=== PATIENT | male | born 1960 | race Caucasian/White ===

== ENCOUNTER 2016-11-19 11:32 | Emergency (ER) | payer OTHER ==
[~2016-11-19] VITALS: Ht 175.3 cm; Wt 101.5 kg
[~2016-11-19 11:32] MED LIST: FURO40TA4 PO; SPIR25TA PO
[2016-11-19 11:34] VITALS: Ht 175.3 cm; Wt 101.5 kg
[2016-11-19 12:20] LABS: ADD SCAN DIFF NO
[2016-11-19 12:23] LABS: ABNORMAL IP MESSAGE 1; HEMATOCRIT 39.7 % (42.0-52.0); HEMOGLOBIN 13.3 g/dl (14.0-18.0); MEAN CORPUSCULAR HEMOGLOBIN 33.6 pg (29.0-33.0); MEAN CORPUSCULAR HGB CONC 33.5 g/dl (32.0-37.0); MEAN CORPUSCULAR VOLUME 100.3 fl (82.0-101.0); MEAN PLATELET VOLUME 9.6 fl (7.4-10.4); PLATELET COUNT 75 10^3/UL (140-415); RED BLOOD COUNT 3.96 10^6/ul (4.70-6.10); RED CELL DISTRIBUTION WIDTH 14.3 % (11.5-14.5); WHITE BLOOD COUNT 3.3 10^3/ul (4.8-10.8)
[2016-11-19 12:39] LABS: ALBUMIN 2.6 g/dl (3.3-4.9); ALBUMIN/GLOBULIN RATIO 0.52; BILIRUBIN,INDIRECT 2.7 mg/dl (0-1.1); BILIRUBIN,TOTAL 2.7 mg/dl (0.2-1.3); CALCIUM 8.4 mg/dl (8.4-10.2); CREATININE 0.64 mg/dl (0.61-1.24); POTASSIUM 4.9 mmol/L (3.5-5.1); TOTAL PROTEIN 7.6 g/dl (6.1-8.1)
--- NOTE | 2016-11-19 13:28 | RADRPT ---
PROCEDURE: Ultrasound of the left lower extremity venous system. CLINICAL INDICATION: Left leg pain and swelling, deep venous thrombosis TECHNIQUE: Batista scale with and without compression, color doppler, spectral doppler of the venous system of the left lower extremity was performed. Venous augmentation maneuvers were utilized. COMPARISON: No prior studies are available for comparison. FINDINGS: Common femoral vein: Patent. Femoral vein: Patent. Popliteal vein: Patent. Calf veins: Patent. Calf edema is present. IMPRESSION: No evidence of a deep vein thrombosis within the left lower extremity. Subcutaneous edema of the calf. RPTAT: AADD .Corona Torres MD, MD Date Time Electronically viewed and signed by .Corona Torres MD, MD on 11/19/2016 13:28 .B/
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
[2016-11-19] MEDS ORDERED: CEPH-443 PO (14:00)
[2016-11-19 14:04] LABS: EOSINOPHILS # 0.1 10^3/ul (0.0-0.5); LYMPHOCYTES # 0.6 10^3/ul (0.8-2.9); MONOCYTE # 0.2 10^3/ul (0.3-0.9); NEUTROPHIL # 2.4 10^3/ul (1.6-7.5)
[2016-11-19 14:05] LABS: PLATELET ESTIMATE PLT APPEAR DECREASED
== END 2016-11-19 14:12 | disposition home or self-care (01) ==
LOC: FTE 11:32
DX: L03.116 Cellulitis of left lower limb (principal); K70.31 Alcoholic cirrhosis of liver with ascites; E88.09 Other disorders of plasma-protein metabolism, not elsewhere classified; R60.0 Localized edema; I87.8 Other specified disorders of veins
CPT/HCPCS: 36415; 80053; 85025; 93971; Z7502; 99283

== ENCOUNTER 2016-11-23 14:29 | Inpatient (IN) | payer OTHER ==
[~2016-11-23] VITALS: Ht 170.2 cm; Wt 105.0 kg
[~2016-11-23 14:29] MED LIST changes: +CEPH-443 PO
[2016-11-23] MEDS ORDERED: VANCOMYCIN 1.5 GM in SOD CHLORIDE 0.9% 250 ML IVPB ONE (17:00)
[2016-11-23] MEDS ORDERED: PIPER-TAZO 3.375 GM IV (PMX) 100 ML IVPB ONE (17:00)
--- NOTE | 2016-11-23 17:24 | RADRPT ---
PROCEDURE: XR Chest. CLINICAL INDICATION: Shortness of breath. TECHNIQUE: Single frontal view. COMPARISON: None. FINDINGS: There is a benign calcified granuloma at the left lung base laterally. Mild atelectasis is present at both lung bases. The lungs are otherwise clear. The heart size is normal. There is calcification in the aorta consistent with atherosclerosis. There is no pleural effusion. There is no pneumothorax. IMPRESSION: 1. Benign calcified granuloma at the left lung base laterally. 2. Mild atelectasis at the lung bases. 3. Atherosclerosis. RPTAT: QQ .Stuart Kim MD, Date Time Electronically viewed and signed by .Stuart Kim MD, on 11/23/2016 17:24 .R/
[2016-11-23 17:46] LABS: ADD SCAN DIFF NO
[2016-11-23 17:49] LABS: ABNORMAL IP MESSAGE 1; HEMATOCRIT 36.1 % (42.0-52.0); HEMOGLOBIN 12.3 g/dl (14.0-18.0); MEAN CORPUSCULAR HEMOGLOBIN 34.4 pg (29.0-33.0); MEAN CORPUSCULAR HGB CONC 34.1 g/dl (32.0-37.0); MEAN CORPUSCULAR VOLUME 100.8 fl (82.0-101.0); MEAN PLATELET VOLUME 10.3 fl (7.4-10.4); PLATELET COUNT 75 10^3/UL (140-415); RED BLOOD COUNT 3.58 10^6/ul (4.70-6.10); RED CELL DISTRIBUTION WIDTH 14.7 % (11.5-14.5); WHITE BLOOD COUNT 3.9 10^3/ul (4.8-10.8)
[2016-11-23] MEDS ORDERED: PANT40TA4 PO (17:50)
[2016-11-23] MEDS ORDERED: FURO20TA3 PO (17:50)
[2016-11-23 18:06] LABS: INR 1.85; PROTIME 21.5 Sec (12.2-14.2); PT RATIO 1.7
[2016-11-23 18:07] LABS: PARTIAL THROMBOPLASTIN TIME 41.8 Sec (25.0-35.0)
[2016-11-23 18:09] LABS: ALBUMIN 2.2 g/dl (3.3-4.9); ALBUMIN/GLOBULIN RATIO 0.47; CALCIUM 7.8 mg/dl (8.4-10.2); CREATININE 0.63 mg/dl (0.61-1.24); TOTAL PROTEIN 6.8 g/dl (6.1-8.1)
--- NOTE | 2016-11-23 18:10 | RADRPT ---
PROCEDURE: XR Left Foot. CLINICAL INDICATION: infection, r/o osteo TECHNIQUE: AP, lateral and oblique views of the left foot was obtained. The images were reviewed on a PACS workstation. COMPARISON: None. FINDINGS: The bones of the foot appear intact, with no evidence of fracture, dislocation, or subluxation. The joint spaces are preserved. The bone mineralization is normal. There is mild diffuse soft tissue swelling. No subcutaneous gas is identified. An inferior calcaneal spur is present. IMPRESSION: 1. Mild diffuse soft tissue swelling. 2. An inferior calcaneal spur is present. 3. Otherwise, no significant abnormalities are identified. RPTAT:AAJJ Physician Ana Date Time Electronically viewed and signed by Physician Ana on 11/23/2016 18:09 /
[2016-11-23 18:43] LABS: LYMPHOCYTES # 0.5 10^3/ul (0.8-2.9); MONOCYTE # 0.4 10^3/ul (0.3-0.9)
[2016-11-23 18:44] LABS: PLATELET ESTIMATE PLT APPEAR DECREASED
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
[2016-11-23] MEDS ORDERED: ACETAMINOPHEN 325 MG TAB PO PRN ×2 (19:30→23:00)
[2016-11-23] MEDS ORDERED: ONDANSETRON 4 MG INJ IV PRN ×2 (19:30→23:00)
[2016-11-23 20:20] VITALS: BP 119/63; RESP 18
[2016-11-23 20:22] VITALS: TEMP 97.7
[2016-11-23 20:55] VITALS: BP 119/63; PULSE 93; RESP 18; Ht 170.2 cm; Wt 105.0 kg
[2016-11-23] MEDS ORDERED: VANCOMYCIN IV PER PHARMACY XX SCH (23:00)
[2016-11-23] MEDS ORDERED: NACL 0.9% 3 ML SYG IV SCH (23:00)
[2016-11-23] MEDS ORDERED: morphine 2 MG INJ IV PRN (23:00)
[2016-11-24] MEDS: FUROSEMIDE 40 MG INJ IV SCH ×3 (00:12→17:02)
[2016-11-24] MEDS: FAMOTIDINE 20 MG TAB PO SCH ×3 (00:12→20:46)
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
[2016-11-24] MEDS: VANCOMYCIN 1.5 GM in SOD CHLORIDE 0.9% 250 ML IVPB SCH ×2 (05:43→17:05)
[2016-11-24 05:50] LABS: ADD SCAN DIFF NO
[2016-11-24 05:54] LABS: ABNORMAL IP MESSAGE 1; BASOPHILS % 0.8 % (0.0-2.0); EOSINOPHILS # 0.1 10^3/ul (0.0-0.5); EOSINOPHILS % 4.3 % (0.0-7.0); HEMATOCRIT 31.6 % (42.0-52.0); HEMOGLOBIN 11.2 g/dl (14.0-18.0); LYMPHOCYTES # 0.6 10^3/ul (0.8-2.9); LYMPHOCYTES % 23.3 % (15.0-51.0); MEAN CORPUSCULAR HEMOGLOBIN 35.1 pg (29.0-33.0); MEAN CORPUSCULAR HGB CONC 35.4 g/dl (32.0-37.0); MEAN CORPUSCULAR VOLUME 99.1 fl (82.0-101.0); MEAN PLATELET VOLUME 10.4 fl (7.4-10.4); MONOCYTE # 0.4 10^3/ul (0.3-0.9); MONOCYTES % 16.2 % (0.0-11.0); NEUTROPHIL # 1.4 10^3/ul (1.6-7.5); NEUTROPHILS % 55.4 % (39.0-77.0); PLATELET COUNT 62 10^3/UL (140-415); RED BLOOD COUNT 3.19 10^6/ul (4.70-6.10); RED CELL DISTRIBUTION WIDTH 14.6 % (11.5-14.5); WHITE BLOOD COUNT 2.5 10^3/ul (4.8-10.8)
[2016-11-24 06:19] LABS: ALBUMIN 1.9 g/dl (3.3-4.9); ALBUMIN/GLOBULIN RATIO 0.48; BILIRUBIN,INDIRECT 2.6 mg/dl (0-1.1); BILIRUBIN,TOTAL 2.6 mg/dl (0.2-1.3); CALCIUM 7.6 mg/dl (8.4-10.2); CHOL/HDL RATIO 4.7 RATIO; CREATININE 0.62 mg/dl (0.61-1.24); MAGNESIUM 1.7 mg/dl (1.7-2.5); POTASSIUM 3.7 mmol/L (3.5-5.1); TOTAL PROTEIN 5.8 g/dl (6.1-8.1)
[2016-11-24 07:40] VITALS: BP 110/59; RESP 18
[2016-11-24] MEDS: SPIRONOLACTONE 25 MG TAB PO SCH (08:40)
[2016-11-24] MEDS ORDERED: ENOXAPARIN 40 MG/0.4 ML SYG SC SCH (09:00)
[2016-11-24] MEDS: LACTULOSE 30ML CUP PO SCH ×2 (14:20→20:46)
[2016-11-24] MEDS ORDERED: LIDOCAINE 1% (MPF) 5 ML VIAL ONE (15:17)
--- NOTE | 2016-11-24 16:21 | RADRPT ---
PROCEDURE: Ultrasound guided paracentesis. CLINICAL INDICATION: Ascites and shortness of breath. COMPARISON: No prior studies are available for comparison. TECHNIQUE: The risks, benefits, and alternatives were explained to the patient and/or the patient's family, inc luding but not limited to bleeding, infection, pain, visceral or vascular damage, shock, and . The patient and/or the patient's family understood the risks and the alternatives and wished to pro ceed with the procedure. Informed written consent was obtained. A procedural time out was performed . The patient's name, date of , and procedure to be performed were verified. Utilizing ultrasound guidance, optimal location for entry to the peritoneal cavity was ascertained. The overlying skin was prepped and draped in the usual sterile fashion. Approximately 10 ml of 1% Xylocaine was injected locally for pain control. Using ultrasound guidance, an 8 [place] catheter wa s introduced into the peritoneal cavity in the right lower quadrant without difficulty. FINDINGS: Initial images demonstrate ascites. Approximately 7.6 liters of serous fluid was aspirated and sent for laboratory analysis. The patient tolerated the procedure well without complication. IMPRESSION: 1. Successful ultrasound-guided paracentesis. RPTAT: QQ .Stuart Kim MD, Date Time Electronically viewed and signed by .Stuart Kim MD, on 11/24/2016 16:21 .R/
--- NOTE | 2016-11-24 16:45 | RADRPT ---
PROCEDURE: US bilateral lower extremity arteries. CLINICAL INDICATION: Bilateral leg pain. Nonhealing left foot ulcer. Claudication that interfere s significantly with the patient's lifestyle. TECHNIQUE: Multiple longitudinal and transverse images of the bilateral lower extremity arteries w ere obtained with martin scale, pulsed Doppler, and color Doppler imaging. COMPARISON: No prior studies are available for comparison. FINDINGS: Right [employer]:118 cm/sec PSFA:90 cm/sec MSFA:81 cm/sec DSFA:89 cm/sec POP:51 cm/sec [employer]PER[employer]:105 cm/sec DPA:44 cm/sec Left [employer]:134 cm/sec PSFA:124 cm/sec MSFA:97 cm/sec DSFA:93 cm/sec POP:67 cm/sec ROADS SUPERVISOR:75 cm/sec DPA:85 cm/sec The right ankle-brachial index is 1.3 and the left ankle-brachial index is 1.3. There is normal triphasic flow throughout bilaterally. There is no significant plaque, stenosis, or occlusion. IMPRESSION: 1. Normal bilateral lower extremity arterial Doppler. RPTAT: QQ .Stuart Kim MD, Date Time Electronically viewed and signed by .Stuart Kim MD, on 11/24/2016 16:44 .R/
[2016-11-24 16:54] LABS: FLUID GLUCOSE 113 mg/dl
[2016-11-24 16:55] LABS: FLUID AMYLASE < 30 U/L; FLUID TYPE PARACENTESIS FLUID
[2016-11-24 16:56] LABS: FLUID TOTAL PROTEIN < 2.0 g/dl; FLUID TYPE PARACENTESIS FLUID
[2016-11-24 18:20] LABS: FLUID APPEARANCE HAZY; FLUID WBC'S 99 /cmm
[2016-11-24 18:22] LABS: FLUID RBC EST 1+
[2016-11-24 18:23] LABS: FLUID LYMPHOCYTES 36.4 %; FLUID MONOCYTES 37.4 %; FLUID NEUTROPHILS 26.2 %
[2016-11-24 18:27] LABS: FLUID TYPE PARACENTESIS
[2016-11-24 19:50] VITALS: BP 103/56; RESP 20
[2016-11-25 05:29] LABS: ADD SCAN DIFF NO
[2016-11-25 05:34] LABS: ABNORMAL IP MESSAGE 1; BASOPHILS % 0.3 % (0.0-2.0); EOSINOPHILS # 0.1 10^3/ul (0.0-0.5); EOSINOPHILS % 3.3 % (0.0-7.0); HEMATOCRIT 32.6 % (42.0-52.0); HEMOGLOBIN 11.5 g/dl (14.0-18.0); LYMPHOCYTES # 0.6 10^3/ul (0.8-2.9); LYMPHOCYTES % 20.7 % (15.0-51.0); MEAN CORPUSCULAR HEMOGLOBIN 34.8 pg (29.0-33.0); MEAN CORPUSCULAR HGB CONC 35.3 g/dl (32.0-37.0); MEAN CORPUSCULAR VOLUME 98.8 fl (82.0-101.0); MEAN PLATELET VOLUME 10.3 fl (7.4-10.4); MONOCYTE # 0.4 10^3/ul (0.3-0.9); MONOCYTES % 12.7 % (0.0-11.0); NEUTROPHIL # 1.9 10^3/ul (1.6-7.5); NEUTROPHILS % 62.7 % (39.0-77.0); PLATELET COUNT 60 10^3/UL (140-415); RED CELL DISTRIBUTION WIDTH 14.6 % (11.5-14.5)
[2016-11-25 05:57] LABS: MAGNESIUM 1.6 mg/dl (1.7-2.5); PHOSPHORUS 3.5 mg/dl (2.5-4.9)
[2016-11-25] MEDS: LACTULOSE 30ML CUP PO SCH ×2 (06:03→17:06)
[2016-11-25] MEDS: FUROSEMIDE 40 MG INJ IV SCH (06:04)
[2016-11-25 06:08] LABS: POTASSIUM 3.6 mmol/L (3.5-5.1)
[2016-11-25 06:11] LABS: CREATININE 0.58 mg/dl (0.61-1.24)
[2016-11-25 06:12] LABS: CALCIUM 7.6 mg/dl (8.4-10.2)
[2016-11-25] MEDS: VANCOMYCIN 1.5 GM in SOD CHLORIDE 0.9% 250 ML IVPB SCH (06:13)
[2016-11-25 07:40] VITALS: BP 105/72; RESP 18
[2016-11-25] MEDS: SPIRONOLACTONE 25 MG TAB PO SCH (09:35)
[2016-11-25] MEDS: FAMOTIDINE 20 MG TAB PO SCH (09:35)
[2016-11-25] MEDS ORDERED: CHOLECALCIFEROL 1,000 UNIT TAB PO SCH (12:00)
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
[2016-11-25] MEDS ORDERED: MAGNESIUM CHLORIDE (SR) 64 MG TAB PO ONE (16:00)
--- NOTE | 2016-11-25 16:35 | PDOCDIS ---
Discharge Instructions DIAGNOSIS Discharge Diagnosis: Left lower extremity venous stasis ulcer. CONDITION Patient Condition: Stable HOME CARE INSTRUCTIONS: Diet Instructions: Reduced Sodium FOLLOW UP/APPOINTMENTS Appointments 1. Eb Pereira DPM. [id number] [phone] Office OTHER ORDERS: Other Orders: 1. Take medications as per prescription. 2. Take a low-sodium diet. 3. Activities as tolerated. 4. [facility]. 5. Left lower extremity dressing changes as instructed. 6. Please go to the nearest emergency room if you have persistent fevers, worsening left lower extremity wound, or any other unusual signs/symptoms. ELIO ARREGUIN NP November 25, 2016 16:35
[2016-11-25] MEDS ORDERED: Lactulose PO (16:38)
[2016-11-25] MEDS ORDERED: CHOL100062 PO (16:38)
[2016-11-25] MEDS ORDERED: SULF1TAB31 PO (16:38)
[2016-11-25] MEDS ORDERED: VANCOMYCIN 1.75 GM in NS 500 ML IVPB SCH (18:00)
--- NOTE | 2016-11-25 18:31 | DS ---
DATE OF ADMISSION: 11/23/2016 DATE OF DISCHARGE: 11/25/2016 FINAL DIAGNOSES: 1. Left medial ankle recurrent venous stasis ulcer. 2. Alcoholic liver cirrhosis. 3. Ascites secondary to alcoholic liver cirrhosis. 4. Anemia secondary to underlying liver cirrhosis. 5. Vitamin D deficiency. 6. Dyslipidemia with low HDL. 7. Pancytopenia. 8. Coagulopathy secondary to underlying alcoholic liver disease. CONSULTANTS: 1. Dr. Faraz Andres, vascular surgery. 2. Dr. Eb Pereira, podiatry. HOSPITAL COURSE: This is a 56-year-old male with past medical history of bilateral lower extremity venous stasis ulcers as well as liver cirrhosis who came to the emergency room with chief complaint of worsening left lower extremity swelling and nonhealing wound. The patient was recently seen in [facility] Emergency Room on 11/19/2016, and the patient was sent home on Keflex for any possible underlying cellulitis. However, as per the patient, his left lower extremity wound has not been getting better and he came to the emergency room. At the same time, the patient was also trying to see a vascular surgeon as outpatient. Provided the patient's history of present illness, his comorbidities, and the diagnostic findings, a clinical decision was made to admit the patient in an inpatient setting to have him further evaluated. The patient was admitted to inpatient setting. A podiatry and vascular surgery consult was called on this patient. The patient had schuler cultures which remained negative. The patient had no evidence of any leukocytosis. The patient rather had underlying leukocytopenia , probably secondary to his underlying liver cirrhosis. The patient was maintained on IV antibiotics. The patient was seen and evaluated by podiatry who recommended local dressing changes and followup [facility]. The patient was also evaluated by vascular surgeon who recommended oral antibiotic therapy and outpatient followup at the [facility]. However, the patient has underlying alcoholic liver cirrhosis. The patient was maintained on Lasix and Aldactone. The patient was also noticed to have hyperammonemia. The patient was maintained on lactulose. The patient had no evidence of any hepatic encephalopathy. The patient also underwent a bilateral lower extremity arterial Doppler study that was negative for any hemodynamically significant lesions. The patient had no evidence of any arterial occlusion to the bilateral lower extremities. The patient was also noticed to have pancytopenia, most probably secondary to underlying liver cirrhosis. The patient was also noticed to have a vitamin D deficiency. The patient was started on vitamin D supplements. The patient had a stable hospital course. The patient was cleared by consultants to be discharged home. DISCHARGE DISPOSITION AND PLAN: The patient will be discharged home today. The patient was instructed to take medications as per prescription. He was instructed to follow a low sodium diet. He was instructed to resume activities as tolerated. He was instructed to follow up with [facility] next week and to follow up with vascular surgeon within the next 2 weeks. He was instructed to do the left lower extremity dressing changes as instructed by the spring winder. He was instructed to go to the nearest emergency room if he has persistent fevers, left lower extremity worsening wound, or any other unusual signs or symptoms. The patient verbalized understanding of these discharge instructions. DISCHARGE CONDITION: Stable. DISCHARGE MEDICATIONS: 1. Vitamin D3 1000 units p.o. daily. 2. Bactrim-DS 1 tablet p.o. b.i.d. for 10 days. 3. Lactulose 20 grams p.o. q. 8 hours. 4. Lasix 20 mg. 5. Protonix 40 mg p.o. for breakfast. 6. Aldactone 25 mg p.o. daily. PERTINENT LABORATORY AND DIAGNOSTIC DATA: 1. Bilateral lower extremity arterial study. Normal bilateral lower extremity arterial Doppler. 2. Paracentesis. Successful ultrasound paracentesis with drainage of 7.6 liters of serous fluid. 3. Chest x-ray. Benign calcified granuloma of the left lung base bilaterally. Mild atelectasis at the lung bases, atherosclerosis. 4. Left foot x-ray. Mild diffuse soft tissue swelling. An inferior calcaneal spur is present. 5. Latest CBC: WBC 3.0, hemoglobin 11.5, hematocrit 32.6, platelet count 60. 6. Latest BMP: Sodium 136, potassium 3.6, chloride 107, carbon dioxide 23, anion gap 10, BUN 10, creatinine 0.58, glucose 76, calcium 7.6, phosphorus 3.5, magnesium 1.6. 8. Vitamin D level 25.4. 9. Fasting lipid panel: Triglycerides 47, total cholesterol 100, LDL 70, HDL 21. 10. Hemoglobin A1c 4.8. 11. Latest coag panel: PT 21.5, INR 1.85. PTT 41.8. At this time, I would like to thank all the consultants for seeing the patient, doing the necessary care, and providing clinical recommendations. The case and management of this patient was fully discussed with Dr. Matthews. Approximately 35 minutes was spent on coordinating the discharge on this patient. ELIO MATTHEWS MD, AM/VANESA Conf#: [id number] DID#: [id number] MTDD
== END 2016-11-25 17:43 | disposition home or self-care (01) | DRG 300 ==
LOC: E/R 14:29 → PP2 19:26
PROVIDERS: ADMIT Family Medicine; ATTEND Family Medicine
PROC: 0W9G3ZZ Drainage of Peritoneal Cavity, Percutaneous Approach (ICD-10-PCS; principal; 2016-11-24)
DX: I83.223 Varicose veins of left lower extremity with both ulcer of ankle and inflammation (principal); L03.116 Cellulitis of left lower limb; D68.9 Coagulation defect, unspecified; D61.818 Other pancytopenia; E72.20 Disorder of urea cycle metabolism, unspecified; E87.1 Hypo-osmolality and hyponatremia; K70.31 Alcoholic cirrhosis of liver with ascites; L97.329 Non-pressure chronic ulcer of left ankle with unspecified severity; E55.9 Vitamin D deficiency, unspecified
CPT/HCPCS: 71010; 80048; 80053; 80061; 80202; 82140; 82150; 82306; 82652; 82945; 83036; 83605; 83615; 83735; 83880; 84100; 84157; 85025; 85610; 85730; 87040; 87070; 87102; 87116; 89050; 93922; 96365; 96366; 96368; J1650; J1940; J2543; J3370; J7040; J7050

== ENCOUNTER 2016-12-03 13:19 | Emergency (ER) | payer OTHER ==
[~2016-12-03] VITALS: Ht 172.7 cm; Wt 99.6 kg
[~2016-12-03 13:19] MED LIST changes: -CEPH-443 PO; +CHOL100062 PO; +FURO20TA3 PO; -FURO40TA4 PO; +Lactulose PO; +PANT40TA4 PO; +SULF1TAB31 PO
[2016-12-03 13:23] VITALS: Ht 172.7 cm; Wt 99.6 kg
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
[2016-12-03 15:44] LABS: ADD SCAN DIFF NO
[2016-12-03] MEDS ORDERED: FURO20TA3 PO (15:44)
[2016-12-03 15:49] LABS: ABNORMAL IP MESSAGE 1; HEMATOCRIT 37.5 % (42.0-52.0); MEAN CORPUSCULAR HEMOGLOBIN 35.1 pg (29.0-33.0); MEAN CORPUSCULAR HGB CONC 34.7 g/dl (32.0-37.0); MEAN CORPUSCULAR VOLUME 101.4 fl (82.0-101.0); MEAN PLATELET VOLUME 10.8 fl (7.4-10.4); PLATELET COUNT 74 10^3/UL (140-415); RED CELL DISTRIBUTION WIDTH 15.6 % (11.5-14.5); WHITE BLOOD COUNT 3.7 10^3/ul (4.8-10.8)
[2016-12-03 16:05] LABS: INR 1.67; PROTIME 19.8 Sec (12.2-14.2); PT RATIO 1.5
[2016-12-03 16:06] LABS: PARTIAL THROMBOPLASTIN TIME 38.4 Sec (25.0-35.0)
[2016-12-03 16:19] LABS: ALBUMIN 2.5 g/dl (3.3-4.9)
[2016-12-03 16:20] LABS: POTASSIUM 4.2 mmol/L (3.5-5.1)
[2016-12-03 16:22] LABS: BILIRUBIN,INDIRECT 2.4 mg/dl (0-1.1); BILIRUBIN,TOTAL 2.4 mg/dl (0.2-1.3); CREATININE 0.86 mg/dl (0.61-1.24)
[2016-12-03 16:23] LABS: ALBUMIN/GLOBULIN RATIO 0.49; CALCIUM 8.2 mg/dl (8.4-10.2); TOTAL PROTEIN 7.6 g/dl (6.1-8.1)
[2016-12-03 16:51] LABS: EOSINOPHILS # 0.1 10^3/ul (0.0-0.5); LYMPHOCYTES # 0.7 10^3/ul (0.8-2.9); MONOCYTE # 0.3 10^3/ul (0.3-0.9); NEUTROPHIL # 2.6 10^3/ul (1.6-7.5); PLATELET ESTIMATE PLT APPEAR DECREASED
[2016-12-03] MEDS ORDERED: LACT20SO2 PO (17:18)
[2016-12-03 19:00] VITALS: BP 102/64; PULSE 68; RESP 17
== END 2016-12-03 19:05 | disposition home or self-care (01) ==
LOC: E/R 13:19
DX: R18.8 Other ascites (principal); D61.818 Other pancytopenia; E72.20 Disorder of urea cycle metabolism, unspecified; F17.210 Nicotine dependence, cigarettes, uncomplicated
CPT/HCPCS: 36415; 80053; 82140; 85025; 85610; 85730; 99283

== ENCOUNTER 2016-12-09 14:40 | Emergency (ER) | payer OTHER ==
[~2016-12-09] VITALS: Ht 172.7 cm; Wt 97.5 kg
[~2016-12-09 14:40] MED LIST changes: +LACT20SO2 PO
[2016-12-09 14:44] VITALS: Ht 172.7 cm; Wt 97.5 kg
[2016-12-09] MEDS ORDERED: SPIR25TA PO (21:22)
[2016-12-09] MEDS ORDERED: MAGN400T27 PO (21:23)
[2016-12-09] MEDS ORDERED: LACT10SO5 PO (21:24)
[2016-12-09 21:44] LABS: ADD SCAN DIFF NO
[2016-12-09 21:50] VITALS: BP 122/81; PULSE 88; RESP 16; TEMP 98.9
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
[2016-12-09 22:07] LABS: ABNORMAL IP MESSAGE 1; HEMATOCRIT 37.7 % (42.0-52.0); HEMOGLOBIN 13.4 g/dl (14.0-18.0); INR 1.6; MEAN CORPUSCULAR HEMOGLOBIN 35.9 pg (29.0-33.0); MEAN CORPUSCULAR HGB CONC 35.5 g/dl (32.0-37.0); MEAN CORPUSCULAR VOLUME 101.1 fl (82.0-101.0); MEAN PLATELET VOLUME 10.6 fl (7.4-10.4); PLATELET COUNT 81 10^3/UL (140-415); PROTIME 19.2 Sec (12.2-14.2); PT RATIO 1.5; RED BLOOD COUNT 3.73 10^6/ul (4.70-6.10); RED CELL DISTRIBUTION WIDTH 15.5 % (11.5-14.5); WHITE BLOOD COUNT 4.4 10^3/ul (4.8-10.8)
[2016-12-09 22:15] LABS: ALBUMIN 3.3 g/dl (3.3-4.9); ALBUMIN/GLOBULIN RATIO 0.7; BILIRUBIN,INDIRECT 3.2 mg/dl (0-1.1); BILIRUBIN,TOTAL 3.2 mg/dl (0.2-1.3); CALCIUM 8.3 mg/dl (8.4-10.2); CREATININE 0.79 mg/dl (0.61-1.24); POTASSIUM 5.2 mmol/L (3.5-5.1)
[2016-12-09 22:35] LABS: EOSINOPHILS # 0.2 10^3/ul (0.0-0.5); LYMPHOCYTES # 0.9 10^3/ul (0.8-2.9); MONOCYTE # 0.4 10^3/ul (0.3-0.9); NEUTROPHIL # 2.9 10^3/ul (1.6-7.5)
== END 2016-12-09 22:05 | disposition home or self-care (01) ==
LOC: E/R 14:40
DX: R18.8 Other ascites (principal); F17.210 Nicotine dependence, cigarettes, uncomplicated
CPT/HCPCS: 36415; 80053; 85025; 85610; 85730; Z7502; 99283

== ENCOUNTER 2016-12-10 08:40 | Emergency (ER) | payer OTHER ==
[~2016-12-10] VITALS: Ht 167.6 cm; Wt 99.0 kg
[~2016-12-10 08:40] MED LIST changes: +LACT10SO5 PO; -LACT20SO2 PO; -Lactulose PO; +MAGN400T27 PO
[2016-12-10 08:51] VITALS: Ht 167.6 cm; Wt 99.0 kg
[2016-12-10] MEDS ORDERED: LIDOCAINE 1% (MPF) 5 ML VIAL ONE (12:02)
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
--- NOTE | 2016-12-10 14:33 | RADRPT ---
PROCEDURE: Ultrasound guided paracentesis CLINICAL INDICATION: Ascites TECHNIQUE: The risks benefits and alternatives of the procedure were explained to the patient. In formed written consent was obtained. The patient understood the risks benefits and alternatives and wished to proceed with the procedure. A time out was performed. The overlying skin of the right lower quadrant of the abdomen was prepped and draped in the usual sterile fashion. Approximately 10 cc of lidocaine was injected locally for pain control. Utilizing ultrasound guidance, an 6-Citizen Of [place] p aracentesis catheter was placed into the peritoneal cavity without difficulty. Fluid was drained i nto vacuum bottles. After completion of draining fluid, the catheter was removed and direct pressur e was applied to the puncture site. A compression bandage was then placed at the puncture site. e patient tolerated the procedure well without complication. The fluid was not sent to the lab fo r further analysis. COMPARISON: None available FINDINGS: Surgeon: Amaury HARPER. Preprocedural diagnosis: Ascites. Postprocedural diagnosis: Ascites. Samples removed: 8000 cc of clear yellow fluid was obtained. Complications: None. Estimated blood loss: 0 cc. Condition: Stable and unchanged. IMPRESSION: 1. Successful ultrasound-guided paracentesis. RPTAT: QQ .Hugo Rebolledo MD, MD Date Time Electronically viewed and signed by .Hugo Rebolledo MD, on 12/10/2016 14:33 .M/
[2016-12-10 14:39] VITALS: BP 135/70; PULSE 70; RESP 19; TEMP 97.9
== END 2016-12-10 14:40 | disposition home or self-care (01) ==
LOC: E/R 08:40
DX: K70.31 Alcoholic cirrhosis of liver with ascites (principal); R40.2252 Coma scale, best verbal response, oriented, at arrival to emergency department; I10 Essential (primary) hypertension; F17.210 Nicotine dependence, cigarettes, uncomplicated; R40.2142 Coma scale, eyes open, spontaneous, at arrival to emergency department; R40.2362 Coma scale, best motor response, obeys commands, at arrival to emergency department
CPT/HCPCS: Z7502; Z7610

== ENCOUNTER 2016-12-16 07:41 | Emergency (ER) | payer OTHER ==
[~2016-12-16] VITALS: Ht 167.6 cm; Wt 99.5 kg
[2016-12-16 07:43] VITALS: Ht 167.6 cm; Wt 99.5 kg
[2016-12-16] MEDS ORDERED: LIDOCAINE 1% (MPF) 5 ML VIAL ONE (09:41)
--- NOTE | 2016-12-16 09:44 | RADRPT ---
PROCEDURE: US guided paracentesis CLINICAL INDICATION: Ascites TECHNIQUE: Multiple sonographic images were obtained through the patient's abdomen. A site in the patient's RIGHT lower abdomen was selected and marked. The area was prepped and draped in the usual sterile fashion. 1% lidocaine was utilized. A 19-gauge Yueh needle was advanced into the peritonea l space and the introducer was connected to a vacuum drainage bottle. A total of 10 liters of clear yellow fluid were drained at the end of the procedure. The patient tolerated the procedure well. COMPARISON: None FINDINGS: Ascites. RPTAT: AA IMPRESSION: Successful ultrasound-guided paracentesis. Physician David Date Time Electronically viewed and signed by Physician David on 12/16/2016 09:43 /
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
[2016-12-16 10:04] VITALS: BP 105/65; PULSE 85; RESP 18; TEMP 98.7
== END 2016-12-16 10:10 | disposition home or self-care (01) ==
LOC: E/R 07:41
DX: R18.8 Other ascites (principal); F17.210 Nicotine dependence, cigarettes, uncomplicated
CPT/HCPCS: Z7502; Z7610

== ENCOUNTER 2016-12-17 16:15 | Inpatient (IN) | payer OTHER ==
[~2016-12-17] VITALS: Ht 175.3 cm; Wt 95.0 kg
[~2016-12-17 16:15] MED LIST changes: -SULF1TAB31 PO
[2016-12-17 16:17] VITALS: Ht 175.3 cm; Wt 95.0 kg
[2016-12-17] MEDS ORDERED: ALBUMIN HUMAN 25% 100 ML IV ONE (18:00)
[2016-12-17 18:42] LABS: ADD SCAN DIFF NO
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
[2016-12-17 18:47] LABS: ABNORMAL IP MESSAGE 1; HEMATOCRIT 36.4 % (42.0-52.0); MEAN CORPUSCULAR HGB CONC 35.7 g/dl (32.0-37.0); MEAN CORPUSCULAR VOLUME 100.8 fl (82.0-101.0); MEAN PLATELET VOLUME 10.6 fl (7.4-10.4); PLATELET COUNT 81 10^3/UL (140-415); RED BLOOD COUNT 3.61 10^6/ul (4.70-6.10); RED CELL DISTRIBUTION WIDTH 15.4 % (11.5-14.5); WHITE BLOOD COUNT 5.8 10^3/ul (4.8-10.8)
[2016-12-17 18:59] LABS: ADD UMIC YES; URINE BILIRUBIN (Dip) 1+ (NEGATIVE); URINE BLOOD (Dip) NEGATIVE (NEGATIVE); URINE COLOR AMBER (YELLOW); URINE GLUCOSE (Dip) NEGATIVE (NEGATIVE); URINE KETONES (Dip) TRACE (NEGATIVE); URINE LEUKOCYTE ESTERASE (Dip) NEGATIVE (NEGATIVE); URINE NITRITE (Dip) POSITIVE (NEGATIVE); URINE TOTAL PROTEIN (Dip) TRACE (NEGATIVE); URINE UROBILINOGEN (Dip) 1.0 E.U./dL (0.1-1.0)
[2016-12-17 19:11] LABS: ALANINE AMINOTRANSFERASE 72 IU/L (13-69); ALBUMIN 3.1 g/dl (3.3-4.9); ALBUMIN/GLOBULIN RATIO 0.65; ALKALINE PHOSPHATASE 188 IU/L (42-121); ANION GAP 13 (8-16); ASPARTATE AMINO TRANSFERASE 124 IU/L (15-46); BILIRUBIN,INDIRECT 2.7 mg/dl (0-1.1); BILIRUBIN,TOTAL 2.7 mg/dl (0.2-1.3); BLOOD UREA NITROGEN 15 mg/dl (7-20); CALCIUM 8.5 mg/dl (8.4-10.2); CARBON DIOXIDE 19 mmol/L (21-31); CHLORIDE 99 mmol/L (97-110); CREATININE 0.84 mg/dl (0.61-1.24); GLUCOSE 83 mg/dl (70-220); POTASSIUM 5.9 mmol/L (3.5-5.1); SODIUM 125 mmol/L (135-144); TOTAL PROTEIN 7.8 g/dl (6.1-8.1)
[2016-12-17 19:12] LABS: ICTOTEST POSITIVE (NEGATIVE)
[2016-12-17 19:21] LABS: BACTERIA,URINE FEW; MUCUS,URINE MANY; TRANSITIONAL EPI CELLS,URINE MODERATE; URINE RBCS NONE SEEN /HPF (0)
[2016-12-17 19:24] LABS: TROPONIN-I < 0.012 ng/ml (0.00-0.12)
[2016-12-17 19:28] LABS: EOSINOPHILS # 0.1 10^3/ul (0.0-0.5); LYMPHOCYTES # 0.5 10^3/ul (0.8-2.9); MONOCYTE # 0.8 10^3/ul (0.3-0.9); NEUTROPHIL # 4.5 10^3/ul (1.6-7.5)
[2016-12-17 19:29] LABS: PLATELET ESTIMATE PLT APPEAR DECREASED
[2016-12-17] MEDS ORDERED: FUROSEMIDE 20 MG INJ IV ONE (21:30)
[2016-12-17] MEDS ORDERED: ACETAMINOPHEN 325 MG TAB PO PRN (22:30)
[2016-12-17] MEDS ORDERED: ONDANSETRON 4 MG INJ IV PRN ×2 (22:30→23:30)
[2016-12-17 22:33] VITALS: TEMP 98.6
[2016-12-17 23:00] VITALS: BP 105/60; PULSE 89; RESP 16
[2016-12-17 23:21] VITALS: BP 105/60; RESP 20
[2016-12-17] MEDS ORDERED: NA POLYST SULFON 15 GM/60 ML BTL PO ONE (23:30)
[2016-12-17] MEDS ORDERED: LORAZEPAM 2 MG INJ IV PRN (23:30)
[2016-12-17] MEDS ORDERED: morphine 2 MG INJ IV PRN (23:30)
[2016-12-18] VITALS (12 sets, daily range): BP systolic 98–138; BP diastolic 52–78; PULSE 85–89; RESP 18–20
[2016-12-18 07:23] LABS: ADD SCAN DIFF NO
[2016-12-18 07:25] LABS: ABNORMAL IP MESSAGE 1; BASOPHILS % 0.5 % (0.0-2.0); EOSINOPHILS # 0.1 10^3/ul (0.0-0.5); HEMATOCRIT 32.4 % (42.0-52.0); HEMOGLOBIN 11.6 g/dl (14.0-18.0); LYMPHOCYTES # 0.5 10^3/ul (0.8-2.9); LYMPHOCYTES % 13.6 % (15.0-51.0); MEAN CORPUSCULAR HEMOGLOBIN 36.1 pg (29.0-33.0); MEAN CORPUSCULAR HGB CONC 35.8 g/dl (32.0-37.0); MEAN CORPUSCULAR VOLUME 100.9 fl (82.0-101.0); MEAN PLATELET VOLUME 10.7 fl (7.4-10.4); MONOCYTE # 0.6 10^3/ul (0.3-0.9); MONOCYTES % 15.4 % (0.0-11.0); NEUTROPHIL # 2.7 10^3/ul (1.6-7.5); RED BLOOD COUNT 3.21 10^6/ul (4.70-6.10); RED CELL DISTRIBUTION WIDTH 15.5 % (11.5-14.5)
[2016-12-18 07:31] LABS: PLATELET COUNT 67 10^3/UL (140-415)
[2016-12-18] MEDS: CEPHALEXIN 500 MG CAP PO SCH ×3 (07:58→20:05)
[2016-12-18 08:05] LABS: ALBUMIN 2.5 g/dl (3.3-4.9); ALBUMIN/GLOBULIN RATIO 0.64; BILIRUBIN,INDIRECT 2.5 mg/dl (0-1.1); BILIRUBIN,TOTAL 2.5 mg/dl (0.2-1.3); CALCIUM 7.7 mg/dl (8.4-10.2); CREATININE 0.89 mg/dl (0.61-1.24); MAGNESIUM 1.8 mg/dl (1.7-2.5); PHOSPHORUS 4.3 mg/dl (2.5-4.9); TOTAL PROTEIN 6.4 g/dl (6.1-8.1)
--- NOTE | 2016-12-18 09:26 | HP ---
DATE OF ADMISSION: 12/17/2016 CHIEF COMPLAINT: Generalized weakness and muscle cramps. HISTORY OF PRESENT ILLNESS: The patient is a 56-year-old male with a history of decompensated alcoh olic liver cirrhosis with a history of recurrent ascites and coagulopathy, left medial ankle recurre nt venous stasis ulcer, dyslipidemia, anemia of chronic disease, and thrombocytopenia who presented to the emergency department with the above stated chief complaint. The patient actually came to the ER here yesterday for abdominal pain and distention and underwent paracentesis with removal of 10 liters of clear yellow ascitic fluid. The patient says now he has been feeling weak as well as has been experiencing muscle cramps. He called his information support project manager, Dr. Card, who was instructed to come to the ER, suspecting the patient might be hyponatremic since he did not receive albumin. When he presented to the ER, his blood pressure was 115/59, heart rate 98, respiratory rate 20, temp erature 98.6, oxygen saturation 96% on room air. Laboratory value shows sodium of 125, potassium 5. 9, total bilirubin 2.7. AST 124, ALT 72, alkaline phosphatase 188. Lipase was slightly high 303 wi th 300 being the upper limit of normal here. His hemoglobin was 13, platelet count 81. The patient was given albumin, Lasix, and Tylenol while he was in the ER. REVIEW OF SYSTEMS: A 12-point review of systems was performed and negative except as mentioned in H PI. PAST MEDICAL HISTORY: As per HPI. SOCIAL HISTORY: The patient is an on ex-alcoholic. He quit 3 years ago. ALLERGIES: NO KNOWN DRUG ALLERGIES. HOME MEDICATIONS: 1. Aldactone. 2. Lasix. 3. Magnesium oxide. 4. Protonix. 5. Vitamin D. PHYSICAL EXAMINATION: VITAL SIGNS: Stable. GENERAL: The patient is lying in bed in no acute distress. HEENT: No obvious head deformity. Pupils are reactive to light. CARDIOVASCULAR: Tachycardic, regular rhythm. LUNGS: Clear. ABDOMEN: Distended. There is discomfort to palpation diffusely. There are positive bowel sounds. EXTREMITIES: Positive for bilateral lower extremity pitting edema and left foot ulcer. LABORATORY DATA: Pertinent positives are as mentioned in HPI. IMPRESSION: 1. Generalized weakness and muscle cramps. 2. Decompensated alcoholic liver cirrhosis with history of recurrent ascites and coagulopathy. 3. Hyponatremia. 4. Hyperkalemia. 5. Thrombocytopenia secondary to end-stage liver disease. 6. Left medial ankle recurrent venous stasis ulcer. 7. Abnormal liver chemistries secondary to known cirrhosis. 8. Mild metabolic acidosis. PLAN: The patient was given albumin and Lasix in the ER. We will give a dose of Kayexalate to yuri ect his hyperkalemia which is likely secondary to the Aldactone which will be held for now. We will monitor his sodium closely. If no improvement in the morning, we will give sodium tablets. We lorie l provide pain medication as needed. He will be evaluated by physical therapy, given presentation o f generalized weakness. He will be placed on antibiotics for his recurrent lower extremity ulcer, b ut I will hold his Bactrim since Bactrim is also known to call hyperkalemia. Further workup and management per clinical course. Dictated By: MINOO FIELD/VANESA Conf#: [id number] DID#: [id number]
[2016-12-18] MEDS ORDERED: PENDING SANTYL ORDER FOR WOUND CARE XX PRN (10:00)
--- NOTE | 2016-12-18 10:02 | PN ---
Date/Time of Note Date/Time of Note DATE: 12/18/16 TIME: 09:59 Assessment/Plan VTE Prophylaxis VTE Prophylaxis Intervention: contraindicated Lines/Catheters IV [facility] Saline Lock Urinary Cath still in place: No Assessment/Plan Problems: (1) Ivette cirrhosis (alcoholic) Status: Chronic Comment: He had paracentesis yesterday. Continue observation. 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 Qualifiers: Ascites presence: with ascites Qualified Code: K70.31 - Alcoholic cirrhosis of liver with ascites (2) Ascites due to alcoholic cirrhosis Status: Chronic Comment: Continue care. (3) Hyponatremia Status: Acute Comment: This persists. Will use hypertonic saline to help correct. He will be a small volume and we can then re-repeat paracentesis with albumin tomorrow (4) Ulcer of ankle Status: Acute Comment: Noted. Does not need to continue with antibiotics at this moment Qualifiers: Laterality: right Non-pressure ulcer stage: limited to breakdown of skin Qualified Code: L97.311 - Ulcer of ankle, right, limited to breakdown of skin Subjective 24 Hr Interval Summary Free Text/Dictation Patient is up and ambulating. Constitutional: no complaints Exam/Review of Systems Vital Signs Vitals Vital Signs Date Time Temp Pulse Resp B/P Pulse Ox O2 Delivery O2 Flow Rate FiO2 12/18/16 08:03 86 12/18/16 07:59 98.3 18 108/57 95 12/17/16 23:00 Room Air Intake and Output 12/17/16 12/17/16 12/18/16 15:00 23:00 07:00 Intake Total 100 ml Balance 100 ml Exam Constitutional: alert, oriented Neck: non-tender, supple Respiratory: clear to auscultation, normal air movement Cardiovascular: nl pulses, regular rate and rhythm Gastrointestinal: ascites, nl liver, spleen, non-tender, soft Results Result Diagram: 12/18/1652112/18/16521 Results 24 hrs Laboratory Tests Test 12/17/16 18:15 12/17/16 18:20 12/18/16 05:22 White Blood Count 5.8 # 4.0 #L Red Blood Count 3.61 L 3.21 L Hemoglobin 13.0 L 11.6 L Hematocrit 36.4 L 32.4 L Mean Corpuscular Volume 100.8 100.9 Mean Corpuscular Hemoglobin 36.0 H 36.1 H Mean Corpuscular Hemoglobin Concent 35.7 35.8 Red Cell Distribution Width 15.4 H 15.5 H Platelet Count 81 L 67 L Mean Platelet Volume 10.6 H 10.7 H Neutrophils % 77.0 67.0 Lymphocytes % 9.0 L 13.6 L Monocytes % 13.0 H 15.4 H Eosinophils % 1.0 3.0 Neutrophils # 4.5 2.7 Lymphocytes # 0.5 L 0.5 L Monocytes # 0.8 0.6 Eosinophils # 0.1 0.1 Platelet Estimate PLT APPEAR DECREASED Sodium Level 125 L 124 L Potassium Level 5.9 H 5.0 Chloride Level 99 101 Carbon Dioxide Level 19 L 19 L Anion Gap 13 9 Blood Urea Nitrogen 15 15 Creatinine 0.84 0.89 Glucose Level 83 96 Calcium Level 8.5 7.7 L Total Bilirubin 2.7 H 2.5 H Direct Bilirubin 0.00 0.00 Indirect Bilirubin 2.7 H 2.5 H Aspartate Amino Transf (AST/SGOT) 124 H 98 H Alanine Aminotransferase (ALT/SGPT) 72 H 63 Alkaline Phosphatase 188 H 141 H Troponin I < 0.012 Total Protein 7.8 6.4 # Albumin 3.1 L 2.5 L Globulin 4.70 H 3.90 H Albumin/Globulin Ratio 0.65 0.64 Lipase 303 H Urine Color BJORN Urine Clarity SLIGHTLY CLOUDY Urine pH 5.5 Urine Specific Baltic >=1.030 H Urine Ketones TRACE Urine Nitrite POSITIVE H Urine Bilirubin 1+ H Urine Ictotest POSITIVE Urine Urobilinogen 1.0 E.U./dL Urine Leukocyte Esterase NEGATIVE Urine Microscopic RBC NONE SEEN Urine Microscopic WBC 0-2 Urine Transitional Epithelial Cells MODERATE Urine Calcium Oxalate Crystals FEW Urine Bacteria FEW Urine Mucus MANY Urine Hemoglobin NEGATIVE Urine Glucose NEGATIVE Urine Total Protein TRACE Basophils % 0.5 Nucleated Red Blood Cells % 0.0 Basophils # 0.0 Nucleated Red Blood Cells # 0.0 Phosphorus Level 4.3 Magnesium Level 1.8 Medications Medications Current Medications Morphine Sulfate (morphine) 2 mg Q4H PRN IV PAIN; Start 12/17/16 at 23:30 Lorazepam (Ativan) 1 mg Q4 PRN IV AGITATION/ANXIETY; Start 12/17/16 at 23:30 Ondansetron HCl (Zofran Inj) 4 mg Q6H PRN IV NAUSEA AND/OR VOMITING; Start 04/25 at 23:30 Cephalexin (Keflex) 500 mg Q8 PO Last administered on 12/18/16t 07:58; Admin Dose 500 MG; Start 12/18/16 at 07:00 Miscellaneous Information (Pending Santyl Order For Wound Care) This patient luna... PRN PRN XX WOUND CARE; Start 12/18/16 at 10:00 EARL GOODMAN MD Dec 18, 2016 10:02
[2016-12-18] MEDS ORDERED: NACL 3% 500 ML IV SCH (11:00)
[2016-12-19] VITALS (11 sets, daily range): BP systolic 87–121; BP diastolic 57–69; PULSE 82–87; RESP 18–20
[2016-12-19] MEDS: CEPHALEXIN 500 MG CAP PO SCH ×3 (06:01→21:48)
[2016-12-19 07:35] LABS: ADD SCAN DIFF NO
[2016-12-19 07:43] LABS: ABNORMAL IP MESSAGE 1; BASOPHILS % 0.6 % (0.0-2.0); EOSINOPHILS # 0.1 10^3/ul (0.0-0.5); EOSINOPHILS % 3.8 % (0.0-7.0); HEMATOCRIT 33.1 % (42.0-52.0); HEMOGLOBIN 11.8 g/dl (14.0-18.0); LYMPHOCYTES # 0.5 10^3/ul (0.8-2.9); LYMPHOCYTES % 16.3 % (15.0-51.0); MEAN CORPUSCULAR HEMOGLOBIN 35.8 pg (29.0-33.0); MEAN CORPUSCULAR HGB CONC 35.6 g/dl (32.0-37.0); MEAN CORPUSCULAR VOLUME 100.3 fl (82.0-101.0); MEAN PLATELET VOLUME 10.7 fl (7.4-10.4); MONOCYTE # 0.5 10^3/ul (0.3-0.9); MONOCYTES % 15.1 % (0.0-11.0); NEUTROPHILS % 63.9 % (39.0-77.0); PLATELET COUNT 62 10^3/UL (140-415); RED CELL DISTRIBUTION WIDTH 15.3 % (11.5-14.5); WHITE BLOOD COUNT 3.1 10^3/ul (4.8-10.8)
[2016-12-19 08:03] LABS: CREATININE 0.72 mg/dl (0.61-1.24); POTASSIUM 5.5 mmol/L (3.5-5.1)
[2016-12-19] MEDS ORDERED: NA POLYST SULFON 15 GM/60 ML BTL PO ONE (12:30)
[2016-12-19] MEDS ORDERED: ALBUMIN HUMAN 25% 100 ML IV ONE (13:30)
[2016-12-19] MEDS ORDERED: SOD CHLORIDE 0.9% 1,000 ML IV SCH (13:30)
--- NOTE | 2016-12-19 14:59 | PN ---
Date/Time of Note Date/Time of Note DATE: 12/19/16 TIME: 14:58 Assessment/Plan VTE Prophylaxis VTE Prophylaxis Intervention: contraindicated Lines/Catheters IV [facility] Peripheral IV Urinary Cath still in place: No Assessment/Plan Chief Complaint/Hosp Course 1. Hyperkalemia. Etiology unclear. Continue telemetry monitoring. Will give a single dose of potassium exchange resin. 2. Hyponatremia. Improving. Reinforce fluid restriction. Give IV fluid continue normal saline. 3. Alcoholic liver cirrhosis. Compensated. The patient follows up with outpatient hepatology. 4. Ascites secondary to alcoholic liver cirrhosis. Will schedule a paracentesis. 5. Anemia secondary to underlying liver cirrhosis. Monitor H&H closely. 6. Vitamin D deficiency. Continue vitamin supplements 7. Dyslipidemia with low HDL. Reinforce a low-cholesterol diet. 8. Pancytopenia. Most probably secondary to underlying liver cirrhosis. Monitor. 9. Coagulopathy secondary to underlying alcoholic liver disease. Monitor. 10. Left foot recurrent venous stasis ulcer. Continue antibiotics. 11. Fluids, electrolytes, and nutrition. Low-cholesterol diet. 12. DVT prophylaxis. Bilateral sequential compression devices. 13. Gastrointestinal prophylaxis. Histamine 2 receptor blockers. 14. Plan. Continue inpatient monitoring. Treat hyperkalemia. Treat hyponatremia gradually. Ultrasound-guided paracentesis. Right upper extremity venous Doppler to evaluate for any DVT. Case discussed with Dr. Whitney. Problems: Subjective 24 Hr Interval Summary Free Text/Dictation Complains of right upper extremity pain and edema from IV infiltration. Exam/Review of Systems Vital Signs Vitals Vital Signs Date Time Temp Pulse Resp B/P Pulse Ox O2 Delivery O2 Flow Rate FiO2 12/19/16 12:09 99.0 91 20 116/57 98 12/17/16 23:00 Room Air Intake and Output 12/18/16 12/18/16 12/19/16 15:00 23:00 07:00 Intake Total 300 ml 500 ml Balance 300 ml 500 ml Exam General: Obese 56 year-old male lying in bed in no apparent distress. HEENT: Normocephalic, atraumatic. Eyes: Anicteric sclerae, conjunctivae clear. ENT: Nasal septum midline, oral mucosa moist. Neck supple, no JVD noticed. Respiratory: Bilaterally clear breath sounds. No use of accessory muscles of respiration. No adventitious breath sounds. Cardiovascular: S1, S2 heard. No murmurs or gallops. Abdomen: Soft and nontender. Ascites. Genitourinary: Deferred. Extremities: No cyanosis, no clubbing. Bilateral lower extremity 1-2+ pitting edema. Left foot ulcer over the medial malleolus, healing. Neurologic: Cranial nerves II through XII grossly intact. The patient is awake, alert, and oriented. Skin: Normal skin turgor. No skin rashes. Results Result Diagram: 12/19/16 0650 12/19/16 0650 Results 24 hrs Laboratory Tests Test 12/19/16 06:50 White Blood Count 3.1 #L Red Blood Count 3.30 L Hemoglobin 11.8 L Hematocrit 33.1 L Mean Corpuscular Volume 100.3 Mean Corpuscular Hemoglobin 35.8 H Mean Corpuscular Hemoglobin Concent 35.6 Red Cell Distribution Width 15.3 H Platelet Count 62 L Mean Platelet Volume 10.7 H Neutrophils % 63.9 Lymphocytes % 16.3 Monocytes % 15.1 H Eosinophils % 3.8 Basophils % 0.6 Nucleated Red Blood Cells % 0.0 Neutrophils # 2.0 Lymphocytes # 0.5 L Monocytes # 0.5 Eosinophils # 0.1 Basophils # 0.0 Nucleated Red Blood Cells # 0.0 Sodium Level 125 L Potassium Level 5.5 H Chloride Level 101 Carbon Dioxide Level 22 Anion Gap 8 Blood Urea Nitrogen 12 Creatinine 0.72 Glucose Level 81 Calcium Level 8.0 L Medications Medications Current Medications Morphine Sulfate (morphine) 2 mg Q4H PRN IV PAIN; Start 12/17/16 at 23:30 Lorazepam (Ativan) 1 mg Q4 PRN IV AGITATION/ANXIETY; Start 12/17/16 at 23:30 Ondansetron HCl (Zofran Inj) 4 mg Q6H PRN IV NAUSEA AND/OR VOMITING; Start 04/25 at 23:30 Cephalexin (Keflex) 500 mg Q8 PO Last administered on 12/19/16t 06:01; Admin Dose 500 MG; Start 12/18/16 at 07:00 Miscellaneous Information This patient luna... PRN PRN XX WOUND CARE; Start 12/18 at 10:00 Sodium Chloride (NS) 1,000 ml @ 60 mls/hr [id number] IV ; Start 12/19/16 at 13:30 ; Stop 12/20/16 at 06:09 ELIO ARREGUIN NP Dec 19, 2016 14:59
--- NOTE | 2016-12-19 15:39 | RADRPT ---
PROCEDURE: Right upper extremity venous ultrasound CLINICAL INDICATION: Right arm pain and swelling, deep venous thrombosis TECHNIQUE: Batista scale, color doppler, spectral doppler ultrasound imaging of the venous system of the right upper extremity. Augmentation maneuvers were utilized. COMPARISON: No prior studies are available for comparison. FINDINGS: RIGHT: Internal jugular vein: Patent. Subclavian vein: Patent. Axillary vein: Patent. Brachial vein: Patent. Basilic vein: Patent. Cephalic vein: Patent. Radial vein: Patent. Ulnar vein: Patent. Subcutaneous edema is present. IMPRESSION: No evidence of a deep vein thrombosis involving the right upper extremity. RPTAT: AADD .Corona Torres MD, MD Date Time Electronically viewed and signed by .Corona Torres MD, on 12/19/2016 15:39 .B/
[2016-12-19 16:38] LABS: INR 1.7; PROTIME 20.1 Sec (12.2-14.2); PT RATIO 1.6
[2016-12-19 16:39] LABS: PARTIAL THROMBOPLASTIN TIME 36.9 Sec (25.0-35.0)
[2016-12-19] MEDS: FAMOTIDINE 20 MG TAB PO SCH (21:00)
[2016-12-20] VITALS (9 sets, daily range): BP systolic 94–113; BP diastolic 52–58; PULSE 84–90; RESP 18–20
[2016-12-20] MEDS: CEPHALEXIN 500 MG CAP PO SCH ×2 (06:34→13:07)
[2016-12-20 08:06] LABS: ADD SCAN DIFF NO
[2016-12-20 08:21] LABS: ABNORMAL IP MESSAGE 1; BASOPHILS % 0.7 % (0.0-2.0); EOSINOPHILS # 0.1 10^3/ul (0.0-0.5); EOSINOPHILS % 3.7 % (0.0-7.0); HEMATOCRIT 34.7 % (42.0-52.0); HEMOGLOBIN 12.2 g/dl (14.0-18.0); LYMPHOCYTES # 0.5 10^3/ul (0.8-2.9); LYMPHOCYTES % 16.2 % (15.0-51.0); MEAN CORPUSCULAR HGB CONC 35.2 g/dl (32.0-37.0); MEAN CORPUSCULAR VOLUME 102.4 fl (82.0-101.0); MEAN PLATELET VOLUME 10.7 fl (7.4-10.4); MONOCYTE # 0.3 10^3/ul (0.3-0.9); MONOCYTES % 11.4 % (0.0-11.0); NEUTROPHILS % 67.3 % (39.0-77.0); RED BLOOD COUNT 3.39 10^6/ul (4.70-6.10); RED CELL DISTRIBUTION WIDTH 15.3 % (11.5-14.5)
[2016-12-20] MEDS: FAMOTIDINE 20 MG TAB PO SCH (08:24)
[2016-12-20 08:37] LABS: PLATELET COUNT 54 10^3/UL (140-415)
[2016-12-20 08:54] LABS: MAGNESIUM 1.6 mg/dl (1.7-2.5); PHOSPHORUS 3.5 mg/dl (2.5-4.9)
[2016-12-20 08:55] LABS: CALCIUM 8.2 mg/dl (8.4-10.2); CREATININE 0.65 mg/dl (0.61-1.24); POTASSIUM 4.4 mmol/L (3.5-5.1)
[2016-12-20] MEDS ORDERED: MAGNESIUM SULFATE 2 GM/50 ML 50 ML IVPB ONE (11:00)
[2016-12-20] MEDS ORDERED: LACTULOSE 30ML CUP PO SCH (14:00)
--- NOTE | 2016-12-20 14:41 | PDOCDIS ---
Discharge Instructions DIAGNOSIS Discharge Diagnosis: Ascites CONDITION Patient Condition: Stable HOME CARE INSTRUCTIONS: Diet Instructions: Reduced Sodium OTHER ORDERS: Other Orders: 1. Take medications as per prescription. 2. Take a low-sodium diet. 3. Activities as tolerated. 4. Follow-up with your draw frame runner as scheduled. ELIO ARREGUIN NP Dec 20, 2016 14:41
[2016-12-20] MEDS ORDERED: ALBUMIN HUMAN 25% 100 ML IV ONE (15:00)
--- NOTE | 2016-12-20 16:08 | DS ---
DATE OF ADMISSION: 12/18/2016 DATE OF DISCHARGE: 12/20/2016 FINAL DIAGNOSES: 1. Hyperkalemia, resolved. 2. Hyponatremia. Improving. 3. Alcoholic liver cirrhosis. 4. Ascites secondary to alcoholic liver cirrhosis. 5. Anemia secondary to underlying liver cirrhosis. 6. Pancytopenia. 7. Dyslipidemia with low HDL. 8. Vitamin D deficiency. 9. Coagulopathy secondary to underlying alcoholic liver disease. 10. Left foot recurrent venous stasis ulcer. HOSPITAL COURSE: This is a 56-year-old male with history of decompensated alcoholic liver cirrhosis and history of recurrent ascites and coagulopathy, dyslipidemia, anemia of chronic disease, who presented to the emergency department with chief complaint of generalized weakness and muscle cramps. The patient came to the emergency room as per the instruction of the patient's yarn dry room worker, Dr. Weathers. In the emergency room, the patient was noticed to have a sodium of 125 and potassium of 5.9. Provided the patient's history of present illness, his comorbidities, and the diagnostic findings, a clinical decision was made to admit the patient to inpatient setting to have him further evaluated. The patient was admitted to inpatient medical/surgical floor. The patient's aldosterone antagonists were put on hold. The patient's electrolytes were corrected. The patient's hyperkalemia improved with holding the aldosterone antagonist and by treatment with potassium exchange resins. The patient was monitored on telemetry floor for any underlying arrhythmias. The patient had underlying hyponatremia, probably secondary to fluid overload. The patient was treated with hypertonic normal saline with improvement in the patient's hyponatremia. The patient has underlying alcoholic liver cirrhosis. The patient's diuretics were put on hold because of significant hyponatremia. The patient's diuretics were further started once his sodium levels improved. However, aldosterone antagonists were not started because of underlying hyperkalemia. The patient has underlying liver cirrhosis. The patient underwent a paracentesis on 12/20/2016. The patient has underlying dyslipidemia with a low HDL. The patient was reinforced on a low cholesterol diet. The patient has underlying vitamin D deficiency. He was maintained on vitamin D supplements. The patient has a left foot recurrent venous stasis ulcer. The patient was continued on antibiotics for the same. The patient had a stable hospital course. The patient is stable to be discharged home. The patient's electrolyte imbalances have been corrected. DISCHARGE PLAN: The patient will be discharged home today. The patient was instructed to take medications as per prescription. He was instructed to take a low sodium, low cholesterol diet. He was instructed to resume activities as tolerated. He was instructed to follow up with his yarn dry room worker as scheduled. The patient verbalized understanding of his discharge instructions. CONDITION AT DISCHARGE: Stable. DISCHARGE MEDICATIONS: 1. Vitamin D3 1000 units p.o. daily. 2. Lasix 20 mg p.o. b.i.d. 3. Lactulose 30 mL p.o. q.8h. 4. Protonix 40 mg p.o. before breakfast. PERTINENT LABORATORY AND DIAGNOSTIC DATA: 1. Latest CBC: WBC 3.0, hemoglobin 12.2, hematocrit 34.7, platelet count 54. 2. Latest BMP: Sodium 128, potassium 4.4, chloride 100, carbon dioxide 20, anion gap 9, BUN 11, creatinine 0.65, glucose 130, calcium 8.2, phosphorus 3.5, magnesium 1.6. Ammonia level 82. 3. Right upper extremity venous Doppler study: No evidence of DVT involving the right upper extremity. 4. Paracentesis. Successful ultrasound guided paracentesis with drainage of 9.05 liters of serous fluid. The case and management of this patient was fully discussed with Dr. Matthews. Approximately 35 minutes was spent on coordinating the discharge on this patient. ELIO MATTHEWS MD, AM/VANESA Conf#: [id number] DID#: [id number] MTDD
[2016-12-20] MEDS ORDERED: LIDOCAINE 1% (MPF) 5 ML VIAL ONE (16:21)
[2016-12-20] MEDS ORDERED: LORAZEPAM 1 MG TAB PO PRN (17:00)
--- NOTE | 2016-12-20 17:52 | RADRPT ---
PROCEDURE: Ultrasound guided paracentesis. CLINICAL INDICATION: Ascites and shortness of breath. COMPARISON: No prior studies are available for comparison. TECHNIQUE: The risks, benefits, and alternatives were explained to the patient and/or the patient's family, inc luding but not limited to bleeding, infection, pain, visceral or vascular damage, shock, and . The patient and/or the patient's family understood the risks and the alternatives and wished to pro ceed with the procedure. Informed written consent was obtained. A procedural time out was performed . The patient's name, date of , and procedure to be performed were verified. Utilizing ultrasound guidance, optimal location for entry to the peritoneal cavity was ascertained. The overlying skin was prepped and draped in the usual sterile fashion. Approximately 10 ml of 1% Xylocaine was injected locally for pain control. Using ultrasound guidance, an 8 Swiss catheter wa s introduced into the peritoneal cavity in the right lower quadrant without difficulty. FINDINGS: Initial images demonstrate ascites. Approximately 9.05 liters of serous fluid was aspirated and dis carded. The patient tolerated the procedure well without complication. IMPRESSION: 1. Successful ultrasound-guided paracentesis. RPTAT: QQ .Stuart Kim MD, Date Time Electronically viewed and signed by .Stuart Kim MD, on 12/20/2016 17:52 .R/
== END 2016-12-20 19:00 | disposition home or self-care (01) | DRG 433 ==
LOC: E/R 16:15 → MS4 22:10 → OBSVTOIN 12-18 12:07
PROVIDERS: ADMIT Internal Medicine; ATTEND Internal Medicine
PROC: 0W9G3ZZ Drainage of Peritoneal Cavity, Percutaneous Approach (ICD-10-PCS; principal; 2016-12-20)
DX: K70.31 Alcoholic cirrhosis of liver with ascites (principal); E87.2 Acidosis; D61.818 Other pancytopenia; D68.4 Acquired coagulation factor deficiency; D69.59 Other secondary thrombocytopenia; E87.1 Hypo-osmolality and hyponatremia; L97.321 Non-pressure chronic ulcer of left ankle limited to breakdown of skin; I87.2 Venous insufficiency (chronic) (peripheral); D63.8 Anemia in other chronic diseases classified elsewhere; F10.21 Alcohol dependence, in remission; E87.5 Hyperkalemia; K72.90 Hepatic failure, unspecified without coma; E55.9 Vitamin D deficiency, unspecified; E78.5 Hyperlipidemia, unspecified; F17.210 Nicotine dependence, cigarettes, uncomplicated
CPT/HCPCS: 36415; 80048; 80053; 81001; 82140; 83690; 83735; 84100; 84484; 85025; 85610; 85730; 87086; 93005; 93971; 96374; 96375; G0378; J1940; J3475; J7030; P9047

== ENCOUNTER 2016-12-21 09:14 | Emergency (ER) | payer SELFPAY ==
[~2016-12-21] VITALS: Ht 167.6 cm; Wt 94.5 kg
[2016-12-21 09:24] VITALS: Ht 167.6 cm; Wt 94.5 kg
== END 2016-12-21 11:21 | disposition left against medical advice (07) ==
LOC: FTE 09:14
DX: Z53.21 Procedure and treatment not carried out due to patient leaving prior to being seen by health care provider (principal)

== ENCOUNTER 2016-12-28 08:04 | Emergency (ER) | payer OTHER ==
[~2016-12-28] VITALS: Ht 167.6 cm; Wt 107.0 kg
[~2016-12-28 08:04] MED LIST changes: -MAGN400T27 PO; -SPIR25TA PO
[2016-12-28 08:07] VITALS: Ht 167.6 cm; Wt 107.0 kg
[2016-12-28] MEDS ORDERED: LIDOCAINE 1% (MPF) 5 ML VIAL ONE (10:10)
[2016-12-28 10:50] VITALS: BP 95/62; PULSE 91; RESP 16; TEMP 97.9
--- NOTE | 2016-12-28 10:52 | ERD ---
ER Documentation Chief Complaint Date/Time DATE: 12/28/16 TIME: 10:51 Chief Complaint here for a paracentesis HPI This is a 56-year-old male presents to the emergency room for evaluation of abdominal distention, fluid retention and ascites. This patient does have a previous history of ascites with multiple paracentesis drainage. Patient denies any fevers, came to the ER for evaluation. Denies any abdominal pain nausea vomiting or diarrhea ROS All systems reviewed and are negative except as per history of present illness. Medications Home Meds Active Scripts Cholecalciferol* (Vitamin D3*) 1,000 Unit Tablet, 1000 UNIT PO DAILY for 30 Days , TAB Prov:ELIO ARREGUIN CAUL PULLER 11/25/16 Reported Medications Lactulose* (Lactulose*) 10 Gm/15 Ml Solution, 30 ML PO Q8, ML 12/09/16 Furosemide* (Furosemide*) 20 Mg Tablet, 20 MG PO BID, #30 TAB 12/03/16 Pantoprazole* (Pantoprazole*) 40 Mg Tablet.dr, 40 MG PO AC BREAKFAST, TAB 11/23/16 Allergies Allergies: Coded Allergies: No Known Allergy (Unverified , 12/28/16) PMhx/Soc History of Surgery: No Anesthesia Reaction: No Hx Neurological Disorder: No Hx Respiratory Disorders: No Hx Cardiac Disorders: No Hx Psychiatric Problems: No Hx Alcohol Use: No (STOPPED 3YRS AGO DUE TO CIRRHOSIS) Hx Substance Use: No Hx Tobacco Use: Yes Smoking Status: Never smoker Physical Exam Vitals Vital Signs Date Time Temp Pulse Resp B/P Pulse Ox O2 Delivery O2 Flow Rate FiO2 12/28/16 08:07 97.8 100 18 110/60 99 Physical Exam INITIAL VITAL SIGNS: Reviewed by me GENERAL: The patient is well developed and appropriate for usual state of health in no apparent distress HEENT: Pupils equal, round, and reactive to light. EOMI. There is no scleral icterus. NECK: C-spine is soft and supple, there is no meningismus. There is no cervical lymphadenopathy. LUNGS: Clear to auscultation bilaterally. There are no rales, wheezes or rhonchi. HEART: Regular rate and rhythm, no murmurs, clicks, rubs or gallops. ABDOMEN: Abdominal distention, soft, non-tender,. There are bowel sounds in all four quadrants. No rebound or guarding. EXTREMITIES: There is no peripheral cyanosis or edema. No focal swelling or erythema. NEUROLOGICAL: The patient moves all four extremities with 5/5 strength. Cranial nerves II - XII are intact. Normal gait. Alert and oriented SKIN: There is no apparent rash or petechiae. HEME/LYMPHATIC: There is no evidence of excessive bruising or lymphedema. PSYCHIATRIC: The patient does not appear anxious or depressed. Results 24 hrs Current Medications Medications (Trade) Dose Ordered Sig/Pacheco Route PRN Reason Start Time Stop Time Status Last Admin Dose Admin Lidocaine (Xylocaine 1% (Mpf)) 5 ml STK-MED ONCE .ROUTE 12/28/16 10:10 12/28/16 10:11 DC Procedures/MDM This 56-year-old male presents to the emergency room for evaluation after he was noted to have abdominal distention. This patient does have a history of a ascites in the past and has had multiple drainage of his ascitic fluid. He was afebrile on my examination. This patient underwent an interventional radiology ultrasound-guided paracentesis by radiologist. No paracentesis was done in the emergency room. After his paracentesis the patient does state he is feeling much better. He has not Departure Diagnosis: Primary Impression: Ascites due to alcoholic cirrhosis Condition: Stable SHARLENE CHAMBERS DO Dec 28, 2016 10:52
--- NOTE | 2016-12-28 17:22 | RADRPT ---
PROCEDURE: Ultrasound guided paracentesis. CLINICAL INDICATION: Ascites and shortness of breath. COMPARISON: 12/20/2016. TECHNIQUE: The risks, benefits, and alternatives were explained to the patient and/or the patient's family, inc luding but not limited to bleeding, infection, pain, visceral or vascular damage, shock, and . The patient and/or the patient's family understood the risks and the alternatives and wished to pro ceed with the procedure. Informed written consent was obtained. A procedural time out was performed . The patient's name, date of , and procedure to be performed were verified. Utilizing ultrasound guidance, optimal location for entry to the peritoneal cavity was ascertained. The overlying skin was prepped and draped in the usual sterile fashion. Approximately 10 ml of 1% Xylocaine was injected locally for pain control. Using ultrasound guidance, an 8 Gabonese catheter wa s introduced into the peritoneal cavity in the right lower quadrant without difficulty. FINDINGS: Initial images demonstrate ascites. Approximately 10.2 liters of serous fluid was aspirated and dis carded. The patient tolerated the procedure well without complication. IMPRESSION: 1. Successful ultrasound-guided paracentesis. RPTAT: QQ .Stuart Kim MD, Date Time Electronically viewed and signed by .Stuart Kim MD, on 12/28/2016 17:21 .R/
== END 2016-12-28 11:34 | disposition home or self-care (01) ==
LOC: E/R 08:04
DX: K70.31 Alcoholic cirrhosis of liver with ascites (principal); R40.2252 Coma scale, best verbal response, oriented, at arrival to emergency department; Z87.891 Personal history of nicotine dependence
CPT/HCPCS: Z7502; Z7610

== ENCOUNTER 2017-01-01 09:22 | Emergency (ER) | payer OTHER ==
[~2017-01-01] VITALS: Ht 170.2 cm; Wt 105.0 kg
[2017-01-01 09:24] VITALS: Ht 170.2 cm; Wt 105.0 kg
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
[2017-01-01] MEDS ORDERED: FUROSEMIDE 40 MG INJ IV ONE (12:30)
[2017-01-01 12:32] LABS: ADD SCAN DIFF NO
[2017-01-01 12:37] LABS: ABNORMAL IP MESSAGE 1; HEMATOCRIT 36.6 % (42.0-52.0); HEMOGLOBIN 12.6 g/dl (14.0-18.0); MEAN CORPUSCULAR HEMOGLOBIN 35.7 pg (29.0-33.0); MEAN CORPUSCULAR HGB CONC 34.4 g/dl (32.0-37.0); MEAN CORPUSCULAR VOLUME 103.7 fl (82.0-101.0); MEAN PLATELET VOLUME 10.5 fl (7.4-10.4); PLATELET COUNT 60 10^3/UL (140-415); RED BLOOD COUNT 3.53 10^6/ul (4.70-6.10); RED CELL DISTRIBUTION WIDTH 15.9 % (11.5-14.5); WHITE BLOOD COUNT 3.3 10^3/ul (4.8-10.8)
[2017-01-01 12:43] LABS: INR 1.7; PROTIME 20.1 Sec (12.2-14.2); PT RATIO 1.6
[2017-01-01 12:44] LABS: PARTIAL THROMBOPLASTIN TIME 38.9 Sec (25.0-35.0)
[2017-01-01 12:50] LABS: ALBUMIN 3.1 g/dl (3.3-4.9); ALBUMIN/GLOBULIN RATIO 0.79; BILIRUBIN,INDIRECT 2.5 mg/dl (0-1.1); BILIRUBIN,TOTAL 2.5 mg/dl (0.2-1.3); CREATININE 0.71 mg/dl (0.61-1.24); POTASSIUM 3.9 mmol/L (3.5-5.1)
[2017-01-01 13:40] LABS: EOSINOPHILS # 0.2 10^3/ul (0.0-0.5); LYMPHOCYTES # 0.6 10^3/ul (0.8-2.9); MONOCYTE # 0.2 10^3/ul (0.3-0.9); MYELOCYTES # 0.1; PLATELET ESTIMATE PLT APPEAR DECREASED
[2017-01-01] MEDS ORDERED: LIDOCAINE 1% (MPF) 5 ML VIAL ONE (15:49)
[2017-01-01 16:29] VITALS: BP 104/56; PULSE 89; RESP 18
--- NOTE | 2017-01-01 16:45 | RADRPT ---
PROCEDURE: Ultrasound guided paracentesis. CLINICAL INDICATION: Ascites and shortness of breath. COMPARISON: No prior studies are available for comparison. TECHNIQUE: The risks, benefits, and alternatives were explained to the patient and/or the patient's family, inc luding but not limited to bleeding, infection, pain, visceral or vascular damage, shock, and . The patient and/or the patient's family understood the risks and the alternatives and wished to pro ceed with the procedure. Informed written consent was obtained. A procedural time out was performed . The patient's name, date of , and procedure to be performed were verified. Utilizing ultrasound guidance, optimal location for entry to the peritoneal cavity was ascertained. The overlying skin was prepped and draped in the usual sterile fashion. Approximately 10 ml of 1% Xylocaine was injected locally for pain control. Using ultrasound guidance, an 8 [place]ican catheter wa s introduced into the peritoneal cavity in the right lower quadrant without difficulty. FINDINGS: Initial images demonstrate ascites. Approximately 12.3 liters of serous fluid was aspirated and dis carded. The patient tolerated the procedure well without complication. IMPRESSION: 1. Successful ultrasound-guided paracentesis. RPTAT: QQ .Stuart Kim MD, Date Time Electronically viewed and signed by .Stuart Kim MD, on 01/01/2017 16:45 .R/
== END 2017-01-01 16:34 | disposition home or self-care (01) ==
LOC: E/R 09:22
DX: K70.31 Alcoholic cirrhosis of liver with ascites (principal); R60.0 Localized edema; Z87.891 Personal history of nicotine dependence
CPT/HCPCS: 36415; 80053; 85025; 85610; 85730; 96374; J1940; Z7502; Z7610

== ENCOUNTER 2017-01-07 07:29 | Emergency (ER) | payer OTHER ==
[~2017-01-07] VITALS: Ht 162.6 cm; Wt 107.0 kg
[2017-01-07 07:31] VITALS: Ht 162.6 cm; Wt 107.0 kg
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
[2017-01-07 08:37] LABS: ABNORMAL IP MESSAGE 1; BASOPHILS % 0.1 % (0.0-2.0); HEMATOCRIT 37.5 % (42.0-52.0); HEMOGLOBIN 13.3 g/dl (14.0-18.0); LYMPHOCYTES # 0.2 10^3/ul (0.8-2.9); LYMPHOCYTES % 3.1 % (15.0-51.0); MEAN CORPUSCULAR HEMOGLOBIN 36.8 pg (29.0-33.0); MEAN CORPUSCULAR HGB CONC 35.5 g/dl (32.0-37.0); MEAN CORPUSCULAR VOLUME 103.9 fl (82.0-101.0); MEAN PLATELET VOLUME 11.1 fl (7.4-10.4); MONOCYTE # 0.3 10^3/ul (0.3-0.9); MONOCYTES % 3.9 % (0.0-11.0); NEUTROPHIL # 6.9 10^3/ul (1.6-7.5); NEUTROPHILS % 92.8 % (39.0-77.0); PLATELET COUNT 78 10^3/UL (140-415); RED BLOOD COUNT 3.61 10^6/ul (4.70-6.10); RED CELL DISTRIBUTION WIDTH 15.3 % (11.5-14.5); WHITE BLOOD COUNT 7.4 10^3/ul (4.8-10.8)
[2017-01-07 09:01] LABS: ALBUMIN/GLOBULIN RATIO 0.73; BILIRUBIN,DIRECT 0.1 mg/dl (0.00-0.20); BILIRUBIN,TOTAL 5.1 mg/dl (0.2-1.3); CALCIUM 8.6 mg/dl (8.4-10.2); CREATININE 0.78 mg/dl (0.61-1.24); TOTAL PROTEIN 7.1 g/dl (6.1-8.1)
[2017-01-07 09:08] LABS: INR 1.75; PROTIME 20.6 Sec (12.2-14.2); PT RATIO 1.6
[2017-01-07 09:09] LABS: PARTIAL THROMBOPLASTIN TIME 38.5 Sec (25.0-35.0)
[2017-01-07] MEDS ORDERED: HYDROCODONE/APAP (5/325) TAB PO ONE (09:30)
[2017-01-07] MEDS ORDERED: LIDOCAINE 1% (MPF) 5 ML VIAL ONE (12:02)
[2017-01-07 12:06] VITALS: BP 124/73; PULSE 107; RESP 16; TEMP 98
--- NOTE | 2017-01-07 12:10 | RADRPT ---
PROCEDURE: Ultrasound-guided paracentesis CLINICAL INDICATION: Ascites TECHNIQUE: After obtaining informed consent, the pelvis was scanned using a high resolution transd ucer. An area of fluid was marked for paracentesis. 1% lidocaine was used for subcutaneous anesthesia. A 5-Nigerien 7 cm catheter was used to remove 10 liters of clear yellow fluid from the abdomen. The patient tolerated the procedure well. COMPARISON: January 01, 2017, December 28, 2016, December 20, 2016, December 16, 2016 FINDINGS: Successful right lower quadrant ultrasound-guided paracentesis. A total of 10 liters of clear yello w fluid was removed. IMPRESSION: Successful right lower quadrant ultrasound-guided paracentesis. 10 liters of clear yellow fluid was removed. RPTAT: EE .Elizabeth Lal MD, Date Time Electronically viewed and signed by .Elizabeth Lal MD, on 01/07/2017 12:10 .F/
== END 2017-01-07 12:56 | disposition home or self-care (01) ==
LOC: E/R 07:29
DX: K70.31 Alcoholic cirrhosis of liver with ascites (principal); Z87.891 Personal history of nicotine dependence
CPT/HCPCS: 36415; 80053; 85025; 85610; 85730; Z7502; Z7610

== ENCOUNTER 2017-01-12 08:03 | Emergency (ER) | payer OTHER ==
[~2017-01-12] VITALS: Ht 177.8 cm; Wt 100.5 kg
[2017-01-12 08:07] VITALS: Ht 177.8 cm; Wt 100.5 kg
--- NOTE | 2017-01-12 09:16 | ERD ---
ER Documentation Chief Complaint Date/Time DATE: 01/12/17 TIME: 09:14 Chief Complaint ap, here for paracenthesis HPI Patient is a 56-year-old male who presents with gradual onset, constant, moderate abdominal distention for 5 days. He states that he was in the ER 5 days ago and had a paracentesis. He states this is the fourth time that he has had this procedure performed. The patient has history of alcoholic cirrhosis, but does not continue drinking. He denies significant abdominal pain, shortness of breath, fever, vomiting. He denies dark stools. He is requesting a paracentesis. ROS All systems reviewed and are negative except as per history of present illness. Medications Home Meds Active Scripts Cholecalciferol* (Vitamin D3*) 1,000 Unit Tablet, 1000 UNIT PO DAILY for 30 Days , TAB Prov:ELIO ARREGUIN SNUFF CONTAINER INSPECTOR 11/25/16 Reported Medications Lactulose* (Lactulose*) 10 Gm/15 Ml Solution, 30 ML PO Q8, ML 12/09/16 Furosemide* (Furosemide*) 20 Mg Tablet, 20 MG PO BID, #30 TAB 12/03/16 Pantoprazole* (Pantoprazole*) 40 Mg Tablet.dr, 40 MG PO AC BREAKFAST, TAB 11/23/16 Allergies Allergies: Coded Allergies: No Known Allergy (Unverified , 01/12/17) PMhx/Soc Past medical history: Alcoholic cirrhosis Past surgical history: Denies Social history: Denies tobacco, alcohol or illicit drugs. Anesthesia Reaction: No Hx Neurological Disorder: No Hx Respiratory Disorders: No Hx Cardiac Disorders: No Hx Psychiatric Problems: No Hx Miscellaneous Medical Probl: No Hx Alcohol Use: No Hx Substance Use: No Hx Tobacco Use: No Smoking Status: Never smoker FmHx Family History: No coronary disease, No diabetes Physical Exam Vitals Vital Signs Date Time Temp Pulse Resp B/P Pulse Ox O2 Delivery O2 Flow Rate FiO2 01/12/17 13:24 98.6 83 15 102/62 99 Room Air 01/12/17 12:15 98.1 82 13 103/64 99 Room Air 01/12/17 12:00 98.1 81 14 102/63 100 Room Air 01/12/17 11:45 98.1 80 12 104/66 98 Room Air 01/12/17 11:30 98.2 82 12 100/63 99 Room Air 01/12/17 11:15 98.2 81 18 97/63 99 Room Air 01/12/17 11:00 98.2 81 18 105/69 99 Room Air 01/12/17 10:45 81 18 105/65 98 Room Air 01/12/17 10:30 82 18 113/69 99 Room Air 01/12/17 08:42 98.3 83 18 98/63 99 Room Air 01/12/17 08:07 98.3 99 18 103/54 99 Physical Exam Const: Alert, no acute distress Head: Atraumatic Eyes: Normal Conjunctiva, conjunctival icterus, no pallor ENT: Normal External Ears, Nose and Mouth. Mucous membranes moist Neck: Full range of motion..~ No meningismus. Resp: Clear to auscultation bilaterally, no wheezes, no rales Cardio: Regular rate and rhythm, no murmurs Abd: Soft, non tender, moderate distention, no guarding, no rebound Skin: No petechiae or rashes Back: No midline or flank tenderness Ext: No cyanosis, 2+ pitting edema bilateral lower legs. Neur: Awake and alert, cranial nerves II through XII intact bilaterally, moves and feels 4 extremities appropriately, no asterixis Psych: Normal Mood and Affect Results 24 hrs Laboratory Tests Test 01/12/17 10:30 Body Fluid Type PARACENTHESIS Body Fluid Volume 6.0ml Body Fluid Color YELLOW Body Fluid Appearance SLIGHTLY HAZY Body Fluid WBC 170/cmm Body Fluid RBC 1+ Body Fluid Neutrophils % 68% Body Fluid Lymphocytes (%) 16% Body Fluid Monocytes % 16% Body Fluid Eosinophils % 0% Body Fluid Basophils % 0% Body Fluid Other Cells (%) 0% Procedures/MDM Procedure - Paracentesis by me: Patient consented, sterilely draped, full prep, gown, glove, mask, time out performed. Anesthesia: 1% lidocaine locally Location: Right Lower Quadrant Device: Needle aspiration with [id number]-xikzic drainage Results: 5 liters clear fluid, without bleeding No complications. ED Ultrasound: Fluid pocket localized by me under concurrent ultrasound guidance. Real time image archived in the medical record confirming anatomy. MDM: Patient is a 56-year-old male with alcoholic cirrhosis who presents for paracentesis. He had his last paracentesis 5 days ago. I reviewed his labs from the previous visit, and did not feel that repeat labs were indicated. The patient had normal vital signs and a benign exam. He had no other acute complaints. Paracentesis was performed without incident and 5 L of fluid were removed. Fluid was sent for cell count due to patient complaining of mild diffuse abdominal discomfort. He also reported that his ascites had reaccumulated more rapidly than in the past. Cell count showed no evidence of SBP. Patient will be discharged with return precautions and advised to follow- up with his PMD. He stated that he felt better after the paracentesis. Departure Diagnosis: Primary Impression: Ascites due to alcoholic cirrhosis Condition: RAEGAN Martinez MD Jan 12, 2017 09:16
[2017-01-12 11:28] LABS: FLUID APPEARANCE SLIGHTLY HAZY; FLUID TYPE PARACENTHESIS
[2017-01-12 11:29] LABS: FLUID RBC EST 1+
[2017-01-12 12:02] LABS: FLUID BASOPHIL 0 %; FLUID EOSINOPHIL 0 %; FLUID NEUTROPHILS 68 %
[2017-01-12 12:03] LABS: FLUID LYMPHOCYTES 16 %; FLUID MONOCYTES 16 %
[2017-01-12 12:23] LABS: FLUID WBC'S 170 /cmm
[2017-01-12 13:24] VITALS: BP 102/62; PULSE 83; RESP 15; TEMP 98.6
== END 2017-01-12 13:35 | disposition home or self-care (01) ==
LOC: E/R 08:03
DX: K70.31 Alcoholic cirrhosis of liver with ascites (principal)
CPT/HCPCS: 49083; 89050; Z7502

== ENCOUNTER 2017-01-16 16:11 | Emergency (ER) | payer OTHER ==
[~2017-01-16] VITALS: Ht 160 cm; Wt 100.5 kg
[2017-01-16 16:21] VITALS: Ht 160 cm; Wt 100.5 kg
[2017-01-16] MEDS ORDERED: LIDOCAINE 1% (MPF) 5 ML VIAL ONE (17:25)
--- NOTE | 2017-01-16 18:12 | RADRPT ---
PROCEDURE: Ultrasound guided paracentesis. CLINICAL INDICATION: Ascites and shortness of breath. COMPARISON: 01/07/2017. TECHNIQUE: The risks, benefits, and alternatives were explained to the patient and/or the patient's family, inc luding but not limited to bleeding, infection, pain, visceral or vascular damage, shock, and . The patient and/or the patient's family understood the risks and the alternatives and wished to pro ceed with the procedure. Informed written consent was obtained. A procedural time out was performed . The patient's name, date of , and procedure to be performed were verified. Utilizing ultrasound guidance, optimal location for entry to the peritoneal cavity was ascertained. The overlying skin was prepped and draped in the usual sterile fashion. Approximately 10 ml of 1% Xylocaine was injected locally for pain control. Using ultrasound guidance, an 8 Burmese catheter wa s introduced into the peritoneal cavity in the right lower quadrant without difficulty. FINDINGS: Initial images demonstrate ascites. Approximately 10.0 liters of serous fluid was aspirated and dis carded. The patient tolerated the procedure well without complication. IMPRESSION: 1. Successful ultrasound-guided paracentesis. RPTAT: QQ .Stuart Kim MD, Date Time Electronically viewed and signed by .Stuart Kim MD, on 01/16/2017 18:11 .R/
[2017-01-16 18:27] VITALS: BP 112/58; PULSE 91; RESP 20; TEMP 98.7
--- NOTE | 2017-01-16 19:42 | ERD ---
ER Documentation Chief Complaint Date/Time DATE: 01/16/17 TIME: 19:40 Chief Complaint Pt here for paracentesis dx liver chirrosis. HPI Patient is a 56-year-old male with cirrhosis who presents with abdominal distention. He said that he needs a paracentesis. He has had multiple paracentesis in the past. Upon review of old medical records the patient has multiple visits to the ER with similar complaints. He has had no fevers. He had a paracentesis just 2 days ago. ROS All systems reviewed and are negative except as per history of present illness. Medications Home Meds Active Scripts Cholecalciferol* (Vitamin D3*) 1,000 Unit Tablet, 1000 UNIT PO DAILY for 30 Days , TAB Prov:ELIO ARREGUIN EASEMENT WORKER 11/25/16 Reported Medications Lactulose* (Lactulose*) 10 Gm/15 Ml Solution, 30 ML PO Q8, ML 12/09/16 Furosemide* (Furosemide*) 20 Mg Tablet, 20 MG PO BID, #30 TAB 12/03/16 Pantoprazole* (Pantoprazole*) 40 Mg Tablet.dr, 40 MG PO AC BREAKFAST, TAB 11/23/16 Allergies Allergies: Coded Allergies: No Known Allergy (Unverified , 01/12/17) PMhx/Soc Cirrhosis with ascites Anesthesia Reaction: No Hx Neurological Disorder: No Hx Respiratory Disorders: No Hx Cardiac Disorders: No Hx Psychiatric Problems: No Hx Miscellaneous Medical Probl: No Hx Alcohol Use: No Hx Substance Use: No Hx Tobacco Use: No Smoking Status: Never smoker FmHx Family History: No diabetes Physical Exam Vitals Vital Signs Date Time Temp Pulse Resp B/P Pulse Ox O2 Delivery O2 Flow Rate FiO2 01/16/17 18:27 98.7 91 20 112/58 99 Room Air 01/16/17 16:21 98.5 102 16 116/61 95 Physical Exam Const: No acute distress Head: Atraumatic Eyes: Normal Conjunctiva ENT: Normal External Ears, Nose and Mouth. Neck: Full range of motion..~ No meningismus. Resp: Clear to auscultation bilaterally Cardio: Regular rate and rhythm, no murmurs Abd: Large distended abdomen Skin: No petechiae or rashes Back: No midline or flank tenderness Ext: No cyanosis, or edema Neur: Awake and alert Psych: Normal Mood and Affect Results 24 hrs Current Medications Medications (Trade) Dose Ordered Sig/Pacheco Route PRN Reason Start Time Stop Time Status Last Admin Dose Admin Lidocaine (Xylocaine 1% (Mpf)) 5 ml STK-MED ONCE .ROUTE 01/16/17 17:25 01/16/17 17:26 DC Procedures/MDM Ultrasound-guided paracentesis done by radiology. Patient is a 56-year-old male with abdominal distention and ascites who presents with ascites. I doubt spontaneous bacterial peritonitis. The patient had a successful ultrasound-guided paracentesis as he had labs done approximately 1 week ago. I do not think he requires repeat laboratory studies. He is well-appearing after paracentesis and I do not believe he requires albumin infusion which he is requesting. He should follow-up with his liver specialist. He can return for any worsening symptoms. Departure Diagnosis: Primary Impression: Ascites Ascites type: other type Qualified Code: R18.8 - Other ascites Additional Impression: Abdominal pain Abdominal location: generalized Qualified Code: R10.84 - Generalized abdominal pain Condition: Fair Patient Instructions: Abdominal Pain, Ascites Additional Instructions: Llame al doctor luzma zapata (Referral Sources) MAANA y abisai danika NEREIDA PARA DENTRO DE DANIKA SEMANA. Dgale a la secretaria que nosotros le instruimos hacer esta nereida.Avise o llame si mobley condicin se empeora antes de la nereida. MARGARET NOGUEIRA MD Jan 16, 2017 19:42
== END 2017-01-16 18:40 | disposition home or self-care (01) ==
LOC: E/R 16:11
DX: R18.8 Other ascites (principal); R10.84 Generalized abdominal pain
CPT/HCPCS: Z7502; Z7610

== ENCOUNTER 2017-01-18 04:29 | Inpatient (IN) | payer OTHER ==
[~2017-01-18] VITALS: Ht 170.2 cm; Wt 90.5 kg
[2017-01-18] MEDS ORDERED: SOD CHLORIDE 0.9% 500 ML IV STA (05:12)
[2017-01-18] MEDS ORDERED: ONDANSETRON 4 MG INJ IV STA (05:12)
[2017-01-18] MEDS ORDERED: LIDOCAINE/MYLANTA 40 ML BTL PO STA (05:12)
[2017-01-18] MEDS ORDERED: morphine 4 MG/ML VIAL IV STA (05:12)
[2017-01-18] MEDS ORDERED: FAMOTIDINE 20 MG INJ IV STA (05:12)
[2017-01-18 05:21] LABS: ADD SCAN DIFF NO
[2017-01-18] MEDS ORDERED: MAGN400T28 PO (05:23)
[2017-01-18] MEDS ORDERED: SPIR50TA PO (05:23)
[2017-01-18 05:29] LABS: ABNORMAL IP MESSAGE 1; BASOPHILS % 0.3 % (0.0-2.0); EOSINOPHILS # 0.1 10^3/ul (0.0-0.5); HEMOGLOBIN 14.3 g/dl (14.0-18.0); LYMPHOCYTES # 0.5 10^3/ul (0.8-2.9); MEAN CORPUSCULAR HEMOGLOBIN 35.9 pg (29.0-33.0); MEAN CORPUSCULAR HGB CONC 35.8 g/dl (32.0-37.0); MEAN CORPUSCULAR VOLUME 100.5 fl (82.0-101.0); MEAN PLATELET VOLUME 10.3 fl (7.4-10.4); MONOCYTE # 0.3 10^3/ul (0.3-0.9); MONOCYTES % 5.1 % (0.0-11.0); NEUTROPHIL # 5.1 10^3/ul (1.6-7.5); NEUTROPHILS % 83.6 % (39.0-77.0); RED BLOOD COUNT 3.98 10^6/ul (4.70-6.10); RED CELL DISTRIBUTION WIDTH 14.2 % (11.5-14.5); WHITE BLOOD COUNT 6.1 10^3/ul (4.8-10.8)
[2017-01-18 05:31] LABS: PLATELET COUNT 119 10^3/UL (140-415)
[2017-01-18 05:39] VITALS: TEMP 98.5
[2017-01-18 05:42] LABS: ALBUMIN 2.8 g/dl (3.3-4.9); ALBUMIN/GLOBULIN RATIO 0.65; BILIRUBIN,DIRECT 0.2 mg/dl (0.00-0.20); BILIRUBIN,INDIRECT 2.9 mg/dl (0-1.1); BILIRUBIN,TOTAL 3.1 mg/dl (0.2-1.3); CALCIUM 8.3 mg/dl (8.4-10.2); CREATININE 0.87 mg/dl (0.61-1.24); POTASSIUM 4.4 mmol/L (3.5-5.1); TOTAL PROTEIN 7.1 g/dl (6.1-8.1)
--- NOTE | 2017-01-18 05:45 | ERD ---
ER Documentation Chief Complaint Date/Time DATE: 01/18/17 TIME: 05:44 Chief Complaint Burning in abd, seen here 2 days ago HPI This is a-year-old male seen here multiple times in the past for complaints of abdominal distention. Has had multiple paracentesis for the patient is a mass prosthesis 3 days ago. No fevers no chills. No nausea no vomiting. Requesting paracentesis. ROS All systems reviewed and are negative except as per history of present illness. Medications Home Meds Active Scripts Cholecalciferol* (Vitamin D3*) 1,000 Unit Tablet, 1000 UNIT PO DAILY for 30 Days , TAB Prov:ELIO ARREGUIN BENCH SHEAR OPERATOR 11/25/16 Reported Medications Magnesium Oxide* (Magnesium Oxide*) 400 Mg Tablet, 400 MG PO DAILY, TAB 01/18/17 Spironolactone* (Aldactone*) 50 Mg Tablet, 50 MG PO DAILY, #30 TAB 01/18/17 Lactulose* (Lactulose*) 10 Gm/15 Ml Solution, 30 ML PO Q8, ML 12/09/16 Furosemide* (Furosemide*) 20 Mg Tablet, 20 MG PO BID, #30 TAB 12/03/16 Pantoprazole* (Pantoprazole*) 40 Mg Tablet.dr, 40 MG PO AC BREAKFAST, TAB 11/23/16 Allergies Allergies: Coded Allergies: No Known Allergy (Unverified , 01/18/17) PMhx/Soc Anesthesia Reaction: No Hx Neurological Disorder: No Hx Respiratory Disorders: No Hx Cardiac Disorders: No Hx Psychiatric Problems: No Hx Miscellaneous Medical Probl: Yes (LIVER CIRRHOSIS ) Hx Alcohol Use: Yes (FORMER DRINKER.) Hx Substance Use: No Hx Tobacco Use: No Smoking Status: Never smoker Physical Exam Vitals Vital Signs Date Time Temp Pulse Resp B/P Pulse Ox O2 Delivery O2 Flow Rate FiO2 01/18/17 05:39 98.5 78 20 114/70 95 Room Air 01/18/17 04:35 98.5 117 20 118/60 95 Physical Exam Const: [] Head: Atraumatic Eyes: Normal Conjunctiva ENT: Normal External Ears, Nose and Mouth. Neck: Full range of motion..~ No meningismus. Resp: Clear to auscultation bilaterally Cardio: Regular rate and rhythm, no murmurs Abd: Soft, non tender, non distended. Normal bowel sounds Skin: No petechiae or rashes Back: No midline or flank tenderness Ext: No cyanosis, or edema Neur: Awake and alert Psych: Normal Mood and Affect Result Diagram: 01/18/17 0505 Results 24 hrs Laboratory Tests Test 01/18/17 05:05 White Blood Count 6.110^3/ul Red Blood Count 3.9810^6/ul Hemoglobin 14.3g/dl Hematocrit 40.0% Mean Corpuscular Volume 100.5fl Mean Corpuscular Hemoglobin 35.9pg Mean Corpuscular Hemoglobin Concent 35.8g/dl Red Cell Distribution Width 14.2% Platelet Count 12756^3/UL Mean Platelet Volume 10.3fl Neutrophils % 83.6% Lymphocytes % 8.0% Monocytes % 5.1% Eosinophils % 2.0% Basophils % 0.3% Nucleated Red Blood Cells % 0.0/100WBC Neutrophils # 5.110^3/ul Lymphocytes # 0.510^3/ul Monocytes # 0.310^3/ul Eosinophils # 0.110^3/ul Basophils # 0.010^3/ul Nucleated Red Blood Cells # 0.010^3/ul Current Medications Medications (Trade) Dose Ordered Sig/Pacheco Route PRN Reason Start Time Stop Time Status Last Admin Dose Admin Sodium Chloride (NS) 500 ml @ 500 mls/hr Q1H STAT IV 01/18/17 05:12 01/18/17 06:11 01/18/17 05:28 Morphine Sulfate (morphine) 4 mg ONCE STAT IV 01/18/17 05:12 01/18/17 05:13 DC 01/18/17 05:28 Ondansetron HCl (Zofran Inj) 4 mg ONCE STAT IV 01/18/17 05:12 01/18/17 05:13 DC 01/18/17 05:28 Famotidine (Pepcid Iv) 20 mg ONCE STAT IV 01/18/17 05:12 01/18/17 05:13 DC 01/18/17 05:28 Miscellaneous Medication (Gi Cocktail (2)) 40 ml ONCE STAT PO 01/18/17 05:12 01/18/17 05:13 DC 01/18/17 05:28 Procedures/MDM Medical decision-makin-year-old gentleman with tense ascites. Patient was scheduled for ultrasound paracentesis however patient is severely hyponatremic and wants something will be admitted. Departure Diagnosis: Primary Impression: Ascites Ascites type: due to alcoholic cirrhosis Qualified Code: K70.31 - Ascites due to alcoholic cirrhosis Additional Impression: Hyponatremia Condition: Serious MINOO CEE Jan 18, 2017 05:44
[2017-01-18 07:55] VITALS: BP 121/61; RESP 18
[2017-01-18] MEDS ORDERED: ONDANSETRON 4 MG INJ IV PRN (09:30)
[2017-01-18] MEDS ORDERED: morphine 2 MG INJ IV PRN (09:30)
[2017-01-18] MEDS ORDERED: NACL 0.9% 3 ML SYG IV SCH (09:30)
[2017-01-18 09:38] VITALS: BMI 11.2
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
[2017-01-18 11:58] LABS: INR 1.87; PROTIME 21.7 Sec (12.2-14.2); PT RATIO 1.7
[2017-01-18 11:59] LABS: PARTIAL THROMBOPLASTIN TIME 38.2 Sec (25.0-35.0)
[2017-01-18 12:03] LABS: THROMBIN TIME 17.8 SEC (13.8-19.1)
[2017-01-18] MEDS ORDERED: ALBUMIN HUMAN 25% 100 ML IV ONE (12:30)
[2017-01-18] MEDS ORDERED: LIDOCAINE 1% (MPF) 5 ML VIAL ONE (14:52)
[2017-01-18 15:16] VITALS: BP 112/55; RESP 16
[2017-01-18] MEDS: LACTULOSE 30ML CUP PO SCH ×2 (16:17→21:27)
[2017-01-18 16:18] LABS: FLUID TOTAL PROTEIN < 2.0 g/dl
[2017-01-18] MEDS: ALBUMIN HUMAN 25% 50 ML IV SCH ×2 (16:21→17:11)
--- NOTE | 2017-01-18 16:33 | RADRPT ---
PROCEDURE: Ultrasound guided paracentesis. CLINICAL INDICATION: Ascites and shortness of breath. COMPARISON: 01/16/2017. TECHNIQUE: The risks, benefits, and alternatives were explained to the patient and/or the patient's family, inc luding but not limited to bleeding, infection, pain, visceral or vascular damage, shock, and . The patient and/or the patient's family understood the risks and the alternatives and wished to pro ceed with the procedure. Informed written consent was obtained. A procedural time out was performed . The patient's name, date of , and procedure to be performed were verified. Utilizing ultrasound guidance, optimal location for entry to the peritoneal cavity was ascertained. The overlying skin was prepped and draped in the usual sterile fashion. Approximately 10 ml of 1% Xylocaine was injected locally for pain control. Using ultrasound guidance, an 8 Maldivian catheter wa s introduced into the peritoneal cavity in the right lower quadrant without difficulty. FINDINGS: Initial images demonstrate ascites. Approximately 10.5 liters of serous fluid was aspirated and sen t for laboratory analysis. The patient tolerated the procedure well without complication. IMPRESSION: 1. Successful ultrasound-guided paracentesis. RPTAT: QQ .Stuart Kim MD, Date Time Electronically viewed and signed by .Stuart Kim MD, on 01/18/2017 16:33 .R/
[2017-01-18 17:07] LABS: FLD CLARITY HAZY; FLD COLOR YELLOW; FLD TYPE ASCITES
[2017-01-18 17:08] LABS: FLD WBC 6380 /cmm
[2017-01-18 17:37] LABS: CALCIUM 8.4 mg/dl (8.4-10.2); CREATININE 0.77 mg/dl (0.61-1.24); POTASSIUM 5.4 mmol/L (3.5-5.1)
[2017-01-18 17:56] LABS: FLUID RBC EST 1+
[2017-01-18 17:57] LABS: FLUID LYMPHOCYTES 1 %; FLUID MONOCYTES 15 %; FLUID NEUTROPHILS 84 %
[2017-01-18] MEDS ORDERED: FUROSEMIDE 20 MG TAB PO SCH (18:00)
[2017-01-18 19:37] LABS: CREATININE 0.84 mg/dl (0.61-1.24); POTASSIUM 5.5 mmol/L (3.5-5.1)
[2017-01-18 20:04] LABS: ADD UMIC YES; UR ASCORBIC ACID 40 mg/dL (NEGATIVE); UR BILIRUBIN (Dip) 1+ mg/dL (NEGATIVE); UR BLOOD (Dip) NEGATIVE (NEGATIVE); UR CLARITY SLIGHTLY CLOUDY (CLEAR); UR COLOR AMBER (YELLOW); UR GLUCOSE (Dip) NEGATIVE (NEGATIVE); UR KETONES (Dip) NEGATIVE (NEGATIVE); UR LEUKOCYTE ESTERASE (Dip) NEGATIVE Leu/ul (NEGATIVE); UR MUCUS MANY /HPF (NONE SEEN); UR NITRITE (Dip) NEGATIVE (NEGATIVE); UR RBC 0 /HPF (0-5); UR SPECIFIC GRAVITY (Dip) 1.033 (1.003-1.030); UR SQUAMOUS EPITHELIAL CELL FEW /HPF (FEW); UR TOTAL PROTEIN (Dip) 1+ mg/dl (NEGATIVE); UR UROBILINOGEN (Dip) NEGATIVE (NEGATIVE)
[2017-01-18 20:30] VITALS: BP 110/58; RESP 18
[2017-01-18] MEDS ORDERED: NACL 3% 200 ML IV ONE (21:00)
[2017-01-18] MEDS ORDERED: NACL 3% 500 ML IV SCH (21:00)
[2017-01-19] VITALS (13 sets, daily range): BP systolic 97–118; BP diastolic 55–63; PULSE 93–103; RESP 16–22
[2017-01-19] MEDS: PANTOPRAZOLE (EC) 40 MG TAB PO SCH (06:14)
[2017-01-19] MEDS: LACTULOSE 30ML CUP PO SCH ×3 (06:14→22:06)
[2017-01-19 08:08] LABS: ADD SCAN DIFF NO
[2017-01-19 08:16] LABS: ABNORMAL IP MESSAGE 1; HEMOGLOBIN 11.8 g/dl (14.0-18.0); MEAN CORPUSCULAR HEMOGLOBIN 36.5 pg (29.0-33.0); MEAN CORPUSCULAR HGB CONC 35.8 g/dl (32.0-37.0); MEAN CORPUSCULAR VOLUME 102.2 fl (82.0-101.0); MEAN PLATELET VOLUME 10.7 fl (7.4-10.4); RED BLOOD COUNT 3.23 10^6/ul (4.70-6.10); RED CELL DISTRIBUTION WIDTH 14.2 % (11.5-14.5); WHITE BLOOD COUNT 6.3 10^3/ul (4.8-10.8)
[2017-01-19 08:24] LABS: PLATELET COUNT 75 10^3/UL (140-415)
[2017-01-19 08:37] LABS: MAGNESIUM 1.9 mg/dl (1.7-2.5); PHOSPHORUS 2.8 mg/dl (2.5-4.9)
[2017-01-19 08:39] LABS: ALBUMIN 2.5 g/dl (3.3-4.9); ALBUMIN/GLOBULIN RATIO 0.71; BILIRUBIN,DIRECT 0.9 mg/dl (0.00-0.20); BILIRUBIN,INDIRECT 5.1 mg/dl (0-1.1); CALCIUM 8.1 mg/dl (8.4-10.2); CREATININE 0.81 mg/dl (0.61-1.24); POTASSIUM 4.8 mmol/L (3.5-5.1)
[2017-01-19] MEDS ORDERED: SPIRONOLACTONE 50 MG TAB PO SCH (09:00)
[2017-01-19 09:36] LABS: LYMPHOCYTES # 0.3 10^3/ul (0.8-2.9); MONOCYTE # 0.8 10^3/ul (0.3-0.9); NEUTROPHIL # 5.1 10^3/ul (1.6-7.5); PLATELET ESTIMATE PLT APPEAR DECREASED
[2017-01-19] MEDS: ALBUMIN HUMAN 25% 50 ML IV SCH (09:58)
--- NOTE | 2017-01-19 10:40 | PN ---
Date/Time of Note Date/Time of Note DATE: 01/19/17 TIME: 10:35 Assessment/Plan Lines/Catheters IV [facility] Type ([facility] Saline Lock Urinary Cath still in place: No Assessment/Plan Chief Complaint/Hosp Course 1. Hyponatremia -Etiology secondary to increased ADH levels due to underlying cirrhosis pathophysiology -Patient is on 3% sodium chloride drip at 20 cc an hour for 500 cc -Sodium levels have slowly improved. -Goal is to correct no more than 6 mEq in a 24 hour period. -We will monitor serial sodium levels closely -Limit free water intake 2. Hyperkalemia -Etiology secondary to Aldactone effect. 3. Anemia monitor H&H levels - 4. Decompensated cirrhosis -Patient status post paracentesis 10 L removed -Patient receiving IV albumin 5. Venous stasis ulcer -Continue wound care Problems: Subjective 24 Hr Interval Summary Free Text/Dictation Patient was transferred from [facility] to telemetry to be placed on a 3% sodium chloride drip Patient sodium levels improved from 114 117 mEq Patient status post paracentesis yesterday Exam/Review of Systems Vital Signs Vitals Vital Signs Date Time Temp Pulse Resp B/P Pulse Ox O2 Delivery O2 Flow Rate FiO2 01/19/17 08:26 98 01/19/17 07:21 98.8 18 99/56 95 01/18/17 07:35 Room Air Intake and Output 01/18/17 01/18/17 01/19/17 15:00 23:00 07:00 Intake Total 640 ml Balance 640 ml Exam eneral: Obese 56 year-old male lying in bed in no apparent distress. HEENT: Normocephalic, atraumatic. Eyes: Anicteric sclerae, conjunctivae clear. ENT: Nasal septum midline, oral mucosa moist. Neck supple, no JVD noticed. Respiratory: Bilaterally clear breath sounds. No use of accessory muscles of respiration. No adventitious breath sounds. Cardiovascular: S1, S2 heard. No murmurs or gallops. Abdomen: Soft and nontender. Ascites. Genitourinary: Deferred. Extremities: No cyanosis, no clubbing. Bilateral lower extremity 1-2+ pitting edema. Left foot ulcer over the medial malleolus, healing. Neurologic: Cranial nerves II through XII grossly intact. The patient is awake, alert, and oriented. Skin: Normal skin turgor. No skin rashes. Results Result Diagram: 01/19/17 0718 01/19/17 0718 Results 24 hrs Laboratory Tests Test 01/18/17 14:48 01/18/17 16:45 01/18/17 18:40 01/18/17 19:15 Body Fluid Type ASCITES Body Fluid Volume 1050.0 Body Fluid Color YELLOW Body Fluid Appearance HAZY Body Fluid WBC 6380 Body Fluid RBC 1+ Body Fluid Neutrophils % 84 Body Fluid Lymphocytes (%) 1 Body Fluid Monocytes % 15 Body Fluid Total Protein < 2.0 Body Fluid Lactate Dehydrogenase Sodium Level 115 *L 114 *L Potassium Level 5.4 H 5.5 H Chloride Level 93 L 95 L Carbon Dioxide Level 21 18 L Anion Gap 6 L 7 L Blood Urea Nitrogen 19 19 Creatinine 0.77 0.84 Glucose Level 117 133 Calcium Level 8.4 8.0 L Urine Color BJORN Urine Clarity SLIGHTLY CLOUDY A Urine pH 6.0 Urine Specific Welch 1.033 H Urine Ketones NEGATIVE Urine Nitrite NEGATIVE Urine Bilirubin 1+ H Urine Urobilinogen NEGATIVE Urine Leukocyte Esterase NEGATIVE Urine Microscopic RBC 0 Urine Microscopic WBC 0 Urine Squamous Epithelial Cells FEW Urine Mucus MANY A Urine Hemoglobin NEGATIVE Urine Random Creatinine 276.09 Urine Random Sodium < 13 L Urine Glucose NEGATIVE Urine Total Protein 6.0 Test 01/19/17 07:18 01/19/17 07:20 White Blood Count 6.3 Red Blood Count 3.23 L Hemoglobin 11.8 L Hematocrit 33.0 L Mean Corpuscular Volume 102.2 H Mean Corpuscular Hemoglobin 36.5 H Mean Corpuscular Hemoglobin Concent 35.8 Red Cell Distribution Width 14.2 Platelet Count 75 #L Mean Platelet Volume 10.7 H Neutrophils % 81.0 H Band Neutrophils % 1.0 Lymphocytes % 5.0 L Monocytes % 13.0 H Neutrophils # 5.1 Lymphocytes # 0.3 L Monocytes # 0.8 Platelet Estimate PLT APPEAR DECREASED Sodium Level 117 *L Potassium Level 4.8 Chloride Level 96 L Carbon Dioxide Level 21 Anion Gap 5 L Blood Urea Nitrogen 19 Creatinine 0.81 Glucose Level 103 Calcium Level 8.1 L Total Bilirubin 6.0 #H Direct Bilirubin 0.90 #H Indirect Bilirubin 5.1 H Aspartate Amino Transf (AST/SGOT) 71 H Alanine Aminotransferase (ALT/SGPT) 63 Alkaline Phosphatase 122 H Ammonia < 9 L Total Protein 6.0 #L Albumin 2.5 L Globulin 3.50 H Albumin/Globulin Ratio 0.71 Phosphorus Level 2.8 Magnesium Level 1.9 Medications Medications Current Medications Ondansetron HCl (Zofran Inj) 4 mg Q6H PRN IV NAUSEA AND/OR VOMITING; Start 06/25 at 09:30 Morphine Sulfate (morphine) 2 mg Q4H PRN IV SEVERE PAIN LEVEL 7-10; Start 01/18 at 09:30 Pantoprazole (Protonix Tab) 40 mg DAILY@06 PO Last administered on 01/19/17 06 :14; Admin Dose 40 MG; Start 01/19/17 at 06:00 Cholecalciferol (Vitamin D) 1,000 unit DAILY PO ; Start 01/19/17 at 09:00 Lactulose (Enulose) 20 gm Q8 PO Last administered on 01/19/17 06:14; Admin Dose 20 GM; Start 01/18/17 at 14:00 LUPE ANDRADE DO Jan 19, 2017 10:40
[2017-01-19] MEDS: CHOLECALCIFEROL 1,000 UNIT TAB PO SCH (13:04)
--- NOTE | 2017-01-19 14:08 | PN ---
Date/Time of Note Date/Time of Note DATE: 01/19/17 TIME: 13:51 Assessment/Plan VTE Prophylaxis VTE Prophylaxis Intervention: other Lines/Catheters IV [facility] Type (from [facility] Saline Lock Urinary Cath still in place: No Assessment/Plan Assessment/Plan 1. Severe hyponatremia, on 3% NaCl,free water restriction, follow up with Na level 2. Alcoholic liver cirrhosis, continued on diuretics including potassium sparing and potassium depleting diuretics. Will continue lactulose. 3.. Ascites, paracentesis on 01/18/2017 with 10.5 liters 4. Hyperbilirubinemia with transaminitis. secondary to underlying liver cirrhosis. 5. Coagulopathy secondary to underlying liver cirrhosis. Avoid anticoagulation. 6. Left lower extremity venous stasis ulcer. The patient being followed by podiatry. Continue local wound care as per the wound care team. Subjective 24 Hr Interval Summary Free Text/Dictation less abdominal distension. afebrile Exam/Review of Systems Vital Signs Vitals Vital Signs Date Time Temp Pulse Resp B/P Pulse Ox O2 Delivery O2 Flow Rate FiO2 01/19/17 12:22 96 01/19/17 11:21 99.4 16 101/55 97 01/18/17 07:35 Room Air Intake and Output 01/18/17 01/18/17 01/19/17 15:00 23:00 07:00 Intake Total 640 ml Balance 640 ml Exam Constitutional: alert, oriented Head: atraumatic, normocephalic Eyes: EOMI, PERRL, nl conjunctiva, nl lids ENMT: nl external ears & nose, nl lips & teeth, nl nasal mucosa & septum Neck: supple Respiratory: clear to auscultation, normal air movement, No congested cough, No crackles/rales, No diminished breath sounds, No intercostal retraction, No labored breathing, No other, No respirations, No tactile fremitus, No wheezing Cardiovascular: nl pulses, regular rate and rhythm, No S3, No S4, No bruits, No diastolic murmur, No edema, No gallop, No irregular rhythm, No jugular venous distention (JVD), No murmurs/extra sounds, No other, No rub, No systolic murmur Gastrointestinal: distended, non-tender, soft Musculoskeletal: nl extremities to inspection Extremities: No calf tenderness, No clubbing, No cyanosis, No palpable cord Neurological: 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 II-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 intact, nl mental status, nl speech, nl strength Results Result Diagram: 01/19/17 0718 01/19/17 1300 Results 24 hrs Laboratory Tests Test 01/18/17 14:48 01/18/17 16:45 01/18/17 18:40 01/18/17 19:15 Body Fluid Type ASCITES Body Fluid Volume 1050.0 Body Fluid Color YELLOW Body Fluid Appearance HAZY Body Fluid WBC 6380 Body Fluid RBC 1+ Body Fluid Neutrophils % 84 Body Fluid Lymphocytes (%) 1 Body Fluid Monocytes % 15 Body Fluid Total Protein < 2.0 Body Fluid Lactate Dehydrogenase Sodium Level 115 *L 114 *L Potassium Level 5.4 H 5.5 H Chloride Level 93 L 95 L Carbon Dioxide Level 21 18 L Anion Gap 6 L 7 L Blood Urea Nitrogen 19 19 Creatinine 0.77 0.84 Glucose Level 117 133 Calcium Level 8.4 8.0 L Urine Color BJORN Urine Clarity SLIGHTLY CLOUDY A Urine pH 6.0 Urine Specific [place] 1.033 H Urine Ketones NEGATIVE Urine Nitrite NEGATIVE Urine Bilirubin 1+ H Urine Urobilinogen NEGATIVE Urine Leukocyte Esterase NEGATIVE Urine Microscopic RBC 0 Urine Microscopic WBC 0 Urine Squamous Epithelial Cells FEW Urine Mucus MANY A Urine Hemoglobin NEGATIVE Urine Random Creatinine 276.09 Urine Random Sodium < 13 L Urine Glucose NEGATIVE Urine Total Protein 6.0 Test 01/19/17 07:18 01/19/17 07:20 01/19/17 13:00 White Blood Count 6.3 Red Blood Count 3.23 L Hemoglobin 11.8 L Hematocrit 33.0 L Mean Corpuscular Volume 102.2 H Mean Corpuscular Hemoglobin 36.5 H Mean Corpuscular Hemoglobin Concent 35.8 Red Cell Distribution Width 14.2 Platelet Count 75 #L Mean Platelet Volume 10.7 H Neutrophils % 81.0 H Band Neutrophils % 1.0 Lymphocytes % 5.0 L Monocytes % 13.0 H Neutrophils # 5.1 Lymphocytes # 0.3 L Monocytes # 0.8 Platelet Estimate PLT APPEAR DECREASED Sodium Level 117 *L 115 *L Potassium Level 4.8 Chloride Level 96 L Carbon Dioxide Level 21 Anion Gap 5 L Blood Urea Nitrogen 19 Creatinine 0.81 Glucose Level 103 Calcium Level 8.1 L Total Bilirubin 6.0 #H Direct Bilirubin 0.90 #H Indirect Bilirubin 5.1 H Aspartate Amino Transf (AST/SGOT) 71 H Alanine Aminotransferase (ALT/SGPT) 63 Alkaline Phosphatase 122 H Ammonia < 9 L Total Protein 6.0 #L Albumin 2.5 L Globulin 3.50 H Albumin/Globulin Ratio 0.71 Phosphorus Level 2.8 Magnesium Level 1.9 Medications Medications Current Medications Ondansetron HCl (Zofran Inj) 4 mg Q6H PRN IV NAUSEA AND/OR VOMITING; Start 06/25 at 09:30 Morphine Sulfate (morphine) 2 mg Q4H PRN IV SEVERE PAIN LEVEL 7-10; Start 01/18 at 09:30 Pantoprazole (Protonix Tab) 40 mg DAILY@06 PO Last administered on 01/19/17 06 :14; Admin Dose 40 MG; Start 01/19/17 at 06:00 Cholecalciferol (Vitamin D) 1,000 unit DAILY PO Last administered on 01/19/17 13:04; Admin Dose 1,000 UNIT; Start 01/19/17 at 09:00 Lactulose (Enulose) 20 gm Q8 PO Last administered on 01/19/17 06:14; Admin Dose 20 GM; Start 01/18/17 at 14:00 AMOS WOOD MD Jan 19, 2017 14:01
[2017-01-19] MEDS ORDERED: NACL 3% 500 ML IV SCH (16:30)
[2017-01-19 17:44] LABS: CALCIUM 7.9 mg/dl (8.4-10.2); CREATININE 0.82 mg/dl (0.61-1.24); POTASSIUM 5.2 mmol/L (3.5-5.1)
[2017-01-19] MEDS ORDERED: ACETAMINOPHEN 325 MG TAB PO ONE (23:00)
[2017-01-20] VITALS (12 sets, daily range): BP systolic 88–106; BP diastolic 51–61; PULSE 66–110; RESP 18–20
[2017-01-20] MEDS: PANTOPRAZOLE (EC) 40 MG TAB PO SCH (05:56)
[2017-01-20] MEDS: LACTULOSE 30ML CUP PO SCH ×3 (05:56→21:06)
[2017-01-20 07:57] LABS: ADD SCAN DIFF NO
[2017-01-20 08:14] LABS: ABNORMAL IP MESSAGE 1; HEMATOCRIT 31.9 % (42.0-52.0); HEMOGLOBIN 11.1 g/dl (14.0-18.0); MEAN CORPUSCULAR HEMOGLOBIN 35.6 pg (29.0-33.0); MEAN CORPUSCULAR HGB CONC 34.8 g/dl (32.0-37.0); MEAN CORPUSCULAR VOLUME 102.2 fl (82.0-101.0); MEAN PLATELET VOLUME 10.4 fl (7.4-10.4); PLATELET COUNT 62 10^3/UL (140-415); RED BLOOD COUNT 3.12 10^6/ul (4.70-6.10); RED CELL DISTRIBUTION WIDTH 14.5 % (11.5-14.5); WHITE BLOOD COUNT 3.6 10^3/ul (4.8-10.8)
[2017-01-20] MEDS: CHOLECALCIFEROL 1,000 UNIT TAB PO SCH (08:33)
[2017-01-20 08:44] LABS: CALCIUM 7.9 mg/dl (8.4-10.2); CREATININE 0.86 mg/dl (0.61-1.24); MAGNESIUM 1.9 mg/dl (1.7-2.5); PHOSPHORUS 2.9 mg/dl (2.5-4.9); POTASSIUM 4.7 mmol/L (3.5-5.1)
[2017-01-20 10:36] LABS: EOSINOPHILS # 0.1 10^3/ul (0.0-0.5); LYMPHOCYTES # 0.3 10^3/ul (0.8-2.9); MONOCYTE # 0.4 10^3/ul (0.3-0.9); NEUTROPHIL # 2.6 10^3/ul (1.6-7.5); PLATELET ESTIMATE PLT APPEAR DECREASED
--- NOTE | 2017-01-20 10:45 | CONS ---
Date/Time of Note Date/Time of Note DATE: 01/20/17 TIME: 10:44 Consult Date/Type/Reason Admit Date/Time Jan 18, 2017 at 05:50 Initial Consult Date Type of Consultation: nephrology Subjective pt. with no new c/o. good uop. no neuro sxs. Objective Vital Signs Date Time Temp Pulse Resp B/P Pulse Ox O2 Delivery O2 Flow Rate FiO2 01/20/17 08:05 86 01/20/17 08:01 98.5 20 106/53 97 01/20/17 04:30 Room Air Intake and Output 01/19/17 01/19/17 01/20/17 15:00 23:00 07:00 Intake Total 485 ml 400 ml Output Total 400 ml Balance 85 ml 400 ml Exam eneral: Obese 56 year-old male lying in bed in no apparent distress. HEENT: Normocephalic, atraumatic. Eyes: Anicteric sclerae, conjunctivae clear. ENT: Nasal septum midline, oral mucosa moist. Neck supple, no JVD noticed. Respiratory: Bilaterally clear breath sounds. No use of accessory muscles of respiration. No adventitious breath sounds. Cardiovascular: S1, S2 heard. No murmurs or gallops. Abdomen: Soft and nontender. Ascites. Genitourinary: Deferred. Extremities: No cyanosis, no clubbing. Bilateral lower extremity 1-2+ pitting edema. Left foot ulcer over the medial malleolus, healing. Neurologic: Cranial nerves II through XII grossly intact. The patient is awake, alert, and oriented. Skin: Normal skin turgor. No skin rashes. Results/Medications Result Diagram: 01/20/17 0730 01/20/17 0730 Results 24 hrs Laboratory Tests Test 01/19/17 13:00 01/19/17 14:40 01/19/17 17:20 01/20/17 07:30 Sodium Level 115 *L 114 *L 117 *L 121 L Potassium Level 5.2 H 4.7 Chloride Level 98 100 Carbon Dioxide Level 19 L 20 L Anion Gap 5 L 6 L Blood Urea Nitrogen 17 17 Creatinine 0.82 0.86 Glucose Level 115 104 Calcium Level 7.9 L 7.9 L White Blood Count 3.6 #L Red Blood Count 3.12 L Hemoglobin 11.1 L Hematocrit 31.9 L Mean Corpuscular Volume 102.2 H Mean Corpuscular Hemoglobin 35.6 H Mean Corpuscular Hemoglobin Concent 34.8 Red Cell Distribution Width 14.5 Platelet Count 62 L Mean Platelet Volume 10.4 Neutrophils % 72.0 Band Neutrophils % 3.0 Lymphocytes % 8.0 L Monocytes % 12.0 H Eosinophils % 2.0 Metamyelocytes % 3.0 H Neutrophils # 2.6 Lymphocytes # 0.3 L Monocytes # 0.4 Eosinophils # 0.1 Metamyelocytes # 0.1 Platelet Estimate PLT APPEAR DECREASED Phosphorus Level 2.9 Magnesium Level 1.9 Medications Current Medications Ondansetron HCl (Zofran Inj) 4 mg Q6H PRN IV NAUSEA AND/OR VOMITING; Start 06/25 at 09:30 Morphine Sulfate (morphine) 2 mg Q4H PRN IV SEVERE PAIN LEVEL 7-10; Start 01/18 at 09:30 Pantoprazole (Protonix Tab) 40 mg DAILY@06 PO Last administered on 01/20/17 05 :56; Admin Dose 40 MG; Start 01/19/17 at 06:00 Cholecalciferol (Vitamin D) 1,000 unit DAILY PO Last administered on 01/20/17 08:33; Admin Dose 1,000 UNIT; Start 01/19/17 at 09:00 Lactulose (Enulose) 20 gm Q8 PO Last administered on 01/20/17 05:56; Admin Dose 20 GM; Start 01/18/17 at 14:00 Assessment/Plan Chief Complaint/Hosp Course 1. Hyponatremia -Etiology secondary to increased ADH levels due to underlying cirrhosis pathophysiology -Patient is on 3% sodium chloride drip at 20 cc an hour for 500 cc -Sodium levels have slowly improved. -Goal is to correct no more than 6 mEq in a 24 hour period. -We will monitor serial sodium levels closely -Limit free water intake 2. Hyperkalemia -Etiology secondary to Aldactone effect. 3. Anemia monitor H&H levels - 4. Decompensated cirrhosis -Patient status post paracentesis 10 L removed -Patient receiving IV albumin 5. Venous stasis ulcer -Continue wound care Problems: AYALA SHEPHERD MD Jan 20, 2017 10:45
[2017-01-20] MEDS ORDERED: NACL 3% 200 ML IV ONE (12:00)
--- NOTE | 2017-01-20 14:12 | PN ---
Date/Time of Note Date/Time of Note DATE: 01/20/17 TIME: 14:08 Assessment/Plan VTE Prophylaxis VTE Prophylaxis Intervention: other Lines/Catheters IV [facility] Type [facility]from [facility] Saline Lock Urinary Cath still in place: No Assessment/Plan Assessment/Plan 1. Severe hyponatremia, on 3% NaCl,free water restriction, slow improving, follow up with Na level 2. Alcoholic liver cirrhosis, continued on diuretics including potassium sparing and potassium depleting diuretics. Will continue lactulose. 3.. Ascites, paracentesis on 01/18/2017 with 10.5 liters 4. Hyperbilirubinemia with transaminitis. secondary to underlying liver cirrhosis. 5. Coagulopathy secondary to underlying liver cirrhosis. Avoid anticoagulation. 6. Left lower extremity venous stasis ulcer. The patient being followed by podiatry. Continue local wound care as per the wound care team. Subjective 24 Hr Interval Summary Free Text/Dictation no pain. no nausea or vomiting. no dizziness Exam/Review of Systems Vital Signs Vitals Vital Signs Date Time Temp Pulse Resp B/P Pulse Ox O2 Delivery O2 Flow Rate FiO2 01/20/17 12:14 66 01/20/17 11:52 98.6 18 105/60 99 01/20/17 04:30 Room Air Intake and Output 01/19/17 01/19/17 01/20/17 15:00 23:00 07:00 Intake Total 485 ml 400 ml Output Total 400 ml Balance 85 ml 400 ml Exam Constitutional: alert, oriented Head: atraumatic, normocephalic Eyes: EOMI, PERRL, nl conjunctiva, nl lids ENMT: mucosa pink and moist, nl external ears & nose, nl lips & teeth, nl nasal mucosa & septum Neck: supple Respiratory: clear to auscultation, normal air movement, No congested cough, No crackles/rales, No diminished breath sounds, No intercostal retraction, No labored breathing, No other, No respirations, No tactile fremitus, No wheezing Cardiovascular: nl pulses, regular rate and rhythm, No S3, No S4, No bruits, No diastolic murmur, No edema, No gallop, No irregular rhythm, No jugular venous distention (JVD), No murmurs/extra sounds, No other, No rub, No systolic murmur Gastrointestinal: distended, nl liver, spleen, non-tender, soft Musculoskeletal: nl extremities to inspection Extremities: normal pulses, No calf tenderness, No clubbing, No cyanosis, No edema, No other, No palpable cord, No pitting pedal edema, No tenderness Neurological: SALON SUPERVISOR II-XII intact, nl mental status, nl speech, nl strength Skin: nl turgor Results Result Diagram: 01/20/17 0730 01/20/17 0730 Results 24 hrs Laboratory Tests Test 01/19/17 14:40 01/19/17 17:20 01/20/17 07:30 Sodium Level 114 *L 117 *L 121 L Potassium Level 5.2 H 4.7 Chloride Level 98 100 Carbon Dioxide Level 19 L 20 L Anion Gap 5 L 6 L Blood Urea Nitrogen 17 17 Creatinine 0.82 0.86 Glucose Level 115 104 Calcium Level 7.9 L 7.9 L White Blood Count 3.6 #L Red Blood Count 3.12 L Hemoglobin 11.1 L Hematocrit 31.9 L Mean Corpuscular Volume 102.2 H Mean Corpuscular Hemoglobin 35.6 H Mean Corpuscular Hemoglobin Concent 34.8 Red Cell Distribution Width 14.5 Platelet Count 62 L Mean Platelet Volume 10.4 Neutrophils % 72.0 Band Neutrophils % 3.0 Lymphocytes % 8.0 L Monocytes % 12.0 H Eosinophils % 2.0 Metamyelocytes % 3.0 H Neutrophils # 2.6 Lymphocytes # 0.3 L Monocytes # 0.4 Eosinophils # 0.1 Metamyelocytes # 0.1 Platelet Estimate PLT APPEAR DECREASED Phosphorus Level 2.9 Magnesium Level 1.9 Medications Medications Current Medications Ondansetron HCl (Zofran Inj) 4 mg Q6H PRN IV NAUSEA AND/OR VOMITING; Start 06/25 at 09:30 Morphine Sulfate (morphine) 2 mg Q4H PRN IV SEVERE PAIN LEVEL 7-10; Start 01/18 at 09:30 Pantoprazole (Protonix Tab) 40 mg DAILY@06 PO Last administered on 01/20/17 05 :56; Admin Dose 40 MG; Start 01/19/17 at 06:00 Cholecalciferol (Vitamin D) 1,000 unit DAILY PO Last administered on 01/20/17 08:33; Admin Dose 1,000 UNIT; Start 01/19/17 at 09:00 Lactulose 20 gm 20 gm Q8 PO Last administered on 01/20/17 05:56; Admin Dose 20 GM; Start 01/18/17 at 14:00 Sodium Chloride (Sodium Chloride Iv 3%) 200 ml @ 20 mls/hr Q10H ONCE IV Last administered on 01/20/17 12:08; Admin Dose 20 MLS/HR; Start 01/20/17 at 12:00; Stop 01/20/17 at 21:59 AMOS WOOD MD Jan 20, 2017 14:12
[2017-01-20 14:41] LABS: MICROALBUMIN 0.4 mg/dL
[2017-01-20] MEDS: SPIRONOLACTONE 50 MG TAB PO SCH (16:35)
[2017-01-20] MEDS: FUROSEMIDE 20 MG TAB PO SCH (17:58)
[2017-01-20] MEDS: TAMSULOSIN (SR) 0.4 MG CAP PO SCH (21:06)
[2017-01-21] VITALS (11 sets, daily range): BP systolic 94–105; BP diastolic 52–57; PULSE 96–102; RESP 18–19
[2017-01-21] MEDS: FUROSEMIDE 20 MG TAB PO SCH ×2 (05:35→17:34)
[2017-01-21] MEDS: SPIRONOLACTONE 50 MG TAB PO SCH (05:36)
[2017-01-21] MEDS: LACTULOSE 30ML CUP PO SCH ×3 (05:36→20:30)
[2017-01-21] MEDS: PANTOPRAZOLE (EC) 40 MG TAB PO SCH (05:38)
[2017-01-21 08:16] LABS: ADD SCAN DIFF NO
[2017-01-21 08:23] LABS: ABNORMAL IP MESSAGE 1; BASOPHILS % 0.4 % (0.0-2.0); EOSINOPHILS # 0.1 10^3/ul (0.0-0.5); EOSINOPHILS % 1.1 % (0.0-7.0); HEMATOCRIT 35.5 % (42.0-52.0); HEMOGLOBIN 12.7 g/dl (14.0-18.0); LYMPHOCYTES # 0.5 10^3/ul (0.8-2.9); LYMPHOCYTES % 10.8 % (15.0-51.0); MEAN CORPUSCULAR HEMOGLOBIN 36.3 pg (29.0-33.0); MEAN CORPUSCULAR HGB CONC 35.8 g/dl (32.0-37.0); MEAN CORPUSCULAR VOLUME 101.4 fl (82.0-101.0); MEAN PLATELET VOLUME 10.2 fl (7.4-10.4); MONOCYTE # 0.7 10^3/ul (0.3-0.9); MONOCYTES % 15.5 % (0.0-11.0); NEUTROPHIL # 3.3 10^3/ul (1.6-7.5); NEUTROPHILS % 71.1 % (39.0-77.0); PLATELET COUNT 77 10^3/UL (140-415); RED CELL DISTRIBUTION WIDTH 14.2 % (11.5-14.5); WHITE BLOOD COUNT 4.7 10^3/ul (4.8-10.8)
[2017-01-21] MEDS: CHOLECALCIFEROL 1,000 UNIT TAB PO SCH (08:39)
[2017-01-21 08:42] LABS: CALCIUM 8.2 mg/dl (8.4-10.2); CREATININE 0.82 mg/dl (0.61-1.24); MAGNESIUM 1.8 mg/dl (1.7-2.5); PHOSPHORUS 3.7 mg/dl (2.5-4.9); POTASSIUM 4.7 mmol/L (3.5-5.1)
--- NOTE | 2017-01-21 09:59 | PN ---
Date/Time of Note Date/Time of Note DATE: 01/21/17 TIME: 09:55 Assessment/Plan VTE Prophylaxis VTE Prophylaxis Intervention: contraindicated Lines/Catheters IV Catheter Type (from [facility]): Peripheral IV Urinary Cath still in place: No Assessment/Plan Problems: (1) Ivette cirrhosis (alcoholic) Status: Chronic Comment: He continues to be abstinent from alcohol. He still has significant fluid retention. All this is better than it was when he came in I will go ahead and perform additional therapeutic for paracentesis for symptomatic relief. He remains on his diet oral diuretic therapy Qualifiers: Ascites presence: with ascites Qualified Code: K70.31 - Alcoholic cirrhosis of liver with ascites (2) Ascites Status: Acute Comment: Therapeutic paracentesis today then he should be able for discharge Qualifiers: Ascites type: due to alcoholic cirrhosis Qualified Code: K70.31 - Ascites due to alcoholic cirrhosis (3) Hyponatremia Status: Acute Comment: This is resolved nicely. We will recheck it tomorrow to make sure that he remains in good shape (4) Abdominal pain Status: Acute Comment: This is due to fluid retention therapeutic paracentesis today (5) Pancytopenia Status: Acute Comment: Secondary to chronic liver disease. Subjective 24 Hr Interval Summary Free Text/Dictation Patient reports that is curious about whether or not he can have tony to eat in light of his liver disease Constitutional: no complaints Respiratory: no complaints Cardiovascular: no complaints Gastrointestinal: no complaints Exam/Review of Systems Vital Signs Vitals Vital Signs Date Time Temp Pulse Resp B/P Pulse Ox O2 Delivery O2 Flow Rate FiO2 01/21/17 08:22 102 01/21/17 03:40 98.6 19 94/52 97 01/20/17 04:30 Room Air Intake and Output 01/20/17 01/20/17 01/21/17 15:00 23:00 07:00 Intake Total 350 ml 200 ml Balance 350 ml 200 ml Exam Constitutional: alert, oriented Neck: non-tender, supple Respiratory: clear to auscultation, normal air movement Cardiovascular: nl pulses, regular rate and rhythm Results Result Diagram: 01/21/17 0758 01/21/17 0758 Results 24 hrs Laboratory Tests Test 01/21/17 07:58 White Blood Count 4.7 #L Red Blood Count 3.50 L Hemoglobin 12.7 L Hematocrit 35.5 L Mean Corpuscular Volume 101.4 H Mean Corpuscular Hemoglobin 36.3 H Mean Corpuscular Hemoglobin Concent 35.8 Red Cell Distribution Width 14.2 Platelet Count 77 #L Mean Platelet Volume 10.2 Neutrophils % 71.1 Lymphocytes % 10.8 L Monocytes % 15.5 H Eosinophils % 1.1 Basophils % 0.4 Nucleated Red Blood Cells % 0.0 Neutrophils # 3.3 Lymphocytes # 0.5 L Monocytes # 0.7 Eosinophils # 0.1 Basophils # 0.0 Nucleated Red Blood Cells # 0.0 Sodium Level 131 L Potassium Level 4.7 Chloride Level 102 Carbon Dioxide Level 18 L Anion Gap 16 Blood Urea Nitrogen 14 Creatinine 0.82 Glucose Level 112 Calcium Level 8.2 L Phosphorus Level 3.7 Magnesium Level 1.8 Medications Medications Current Medications Ondansetron HCl (Zofran Inj) 4 mg Q6H PRN IV NAUSEA AND/OR VOMITING; Start 06/25 at 09:30 Morphine Sulfate (morphine) 2 mg Q4H PRN IV SEVERE PAIN LEVEL 7-10; Start 01/18 at 09:30 Pantoprazole (Protonix Tab) 40 mg DAILY@06 PO Last administered on 01/21/17 05 :38; Admin Dose 40 MG; Start 01/19/17 at 06:00 Cholecalciferol (Vitamin D) 1,000 unit DAILY PO Last administered on 01/21/17 08:39; Admin Dose 1,000 UNIT; Start 01/19/17 at 09:00 Lactulose (Enulose) 20 gm Q8 PO Last administered on 01/21/17 05:36; Admin Dose 20 GM; Start 01/18/17 at 14:00 Spironolactone (Aldactone) 50 mg DAILY@06 PO Last administered on 01/21/17 05: 36; Admin Dose 50 MG; Start 01/20/17 at 16:00 Tamsulosin HCl (Flomax) 0.4 mg HS PO Last administered on 01/20/17 21:06; Admin Dose 0.4 MG; Start 01/20/17 at 21:00 Phytonadione (Vitamin K Soln) 10 mg ONCE ONCE PO ; Start 01/21/17 at 10:00; Stop 01/21/17 at 10:01; Status EARL MORILLO MD Jan 21, 2017 09:58
[2017-01-21] MEDS ORDERED: PHYTONADIONE (1 MG/ML PO SYG) PO ONE (11:00)
--- NOTE | 2017-01-21 11:23 | CONS ---
Date/Time of Note Date/Time of Note DATE: 01/21/17 TIME: 11:20 Consult Date/Type/Reason Admit Date/Time Jan 18, 2017 at 05:50 Initial Consult Date Type of Consultation: nephrology Subjective pt. with no new c/o. good uop. no neuro sxs. Exam eneral: Obese 56 year-old male lying in bed in no apparent distress. HEENT: Normocephalic, atraumatic. Eyes: Anicteric sclerae, conjunctivae clear. ENT: Nasal septum midline, oral mucosa moist. Neck supple, no JVD noticed. Respiratory: Bilaterally clear breath sounds. No use of accessory muscles of respiration. No adventitious breath sounds. Cardiovascular: S1, S2 heard. No murmurs or gallops. Abdomen: Soft and nontender. Ascites. Genitourinary: Deferred. Extremities: No cyanosis, no clubbing. Bilateral lower extremity 1-2+ pitting edema. Left foot ulcer over the medial malleolus, healing. Neurologic: Cranial nerves II through XII grossly intact. The patient is awake, alert, and oriented. Skin: Normal skin turgor. No skin rashes. Objective Vital Signs Date Time Temp Pulse Resp B/P Pulse Ox O2 Delivery O2 Flow Rate FiO2 01/21/17 08:22 102 01/21/17 03:40 98.6 19 94/52 97 01/20/17 04:30 Room Air Intake and Output 01/20/17 01/20/17 01/21/17 15:00 23:00 07:00 Intake Total 350 ml 200 ml Balance 350 ml 200 ml Results/Medications Result Diagram: 01/21/17 0758 01/21/17 0758 Results 24 hrs Laboratory Tests Test 01/21/17 07:58 White Blood Count 4.7 #L Red Blood Count 3.50 L Hemoglobin 12.7 L Hematocrit 35.5 L Mean Corpuscular Volume 101.4 H Mean Corpuscular Hemoglobin 36.3 H Mean Corpuscular Hemoglobin Concent 35.8 Red Cell Distribution Width 14.2 Platelet Count 77 #L Mean Platelet Volume 10.2 Neutrophils % 71.1 Lymphocytes % 10.8 L Monocytes % 15.5 H Eosinophils % 1.1 Basophils % 0.4 Nucleated Red Blood Cells % 0.0 Neutrophils # 3.3 Lymphocytes # 0.5 L Monocytes # 0.7 Eosinophils # 0.1 Basophils # 0.0 Nucleated Red Blood Cells # 0.0 Sodium Level 131 L Potassium Level 4.7 Chloride Level 102 Carbon Dioxide Level 18 L Anion Gap 16 Blood Urea Nitrogen 14 Creatinine 0.82 Glucose Level 112 Calcium Level 8.2 L Phosphorus Level 3.7 Magnesium Level 1.8 Medications Current Medications Ondansetron HCl (Zofran Inj) 4 mg Q6H PRN IV NAUSEA AND/OR VOMITING; Start 06/25 at 09:30 Morphine Sulfate (morphine) 2 mg Q4H PRN IV SEVERE PAIN LEVEL 7-10; Start 01/18 at 09:30 Pantoprazole (Protonix Tab) 40 mg DAILY@06 PO Last administered on 01/21/17 05 :38; Admin Dose 40 MG; Start 01/19/17 at 06:00 Cholecalciferol (Vitamin D) 1,000 unit DAILY PO Last administered on 01/21/17 08:39; Admin Dose 1,000 UNIT; Start 01/19/17 at 09:00 Lactulose (Enulose) 20 gm Q8 PO Last administered on 01/21/17 05:36; Admin Dose 20 GM; Start 01/18/17 at 14:00 Spironolactone (Aldactone) 50 mg DAILY@06 PO Last administered on 01/21/17 05: 36; Admin Dose 50 MG; Start 01/20/17 at 16:00 Tamsulosin HCl (Flomax) 0.4 mg HS PO Last administered on 01/20/17 21:06; Admin Dose 0.4 MG; Start 01/20/17 at 21:00 Assessment/Plan Chief Complaint/Hosp Course Assessment/Plan Chief Complaint/Hosp Course 1. Hyponatremia -Etiology secondary to increased ADH levels due to underlying cirrhosis pathophysiology -Patient is sp 3% sodium chloride drip -Sodium levels have slowly improved. -We will monitor serial sodium levels closely -Limit free water intake 2. Hyperkalemia -Etiology secondary to Aldactone effect. 3. Anemia monitor H&H levels - 4. Decompensated cirrhosis -Patient status post paracentesis 10 L removed -Patient receiving IV albumin 5. Venous stasis ulcer -Continue wound care Problems: AMNA SILVA MD Jan 21, 2017 11:23
[2017-01-21] MEDS: TAMSULOSIN (SR) 0.4 MG CAP PO SCH (20:30)
[2017-01-22] VITALS (12 sets, daily range): BP systolic 91–107; BP diastolic 51–58; PULSE 95–105; RESP 16–18
[2017-01-22] MEDS: PANTOPRAZOLE (EC) 40 MG TAB PO SCH (05:37)
[2017-01-22] MEDS: LACTULOSE 30ML CUP PO SCH ×3 (05:37→21:33)
[2017-01-22] MEDS: SPIRONOLACTONE 50 MG TAB PO SCH (05:37)
[2017-01-22] MEDS: FUROSEMIDE 20 MG TAB PO SCH ×2 (05:38→17:28)
[2017-01-22 08:17] LABS: ADD SCAN DIFF NO
[2017-01-22 08:34] LABS: ABNORMAL IP MESSAGE 1; BASOPHILS % 0.5 % (0.0-2.0); EOSINOPHILS # 0.1 10^3/ul (0.0-0.5); EOSINOPHILS % 2.1 % (0.0-7.0); HEMOGLOBIN 12.1 g/dl (14.0-18.0); LYMPHOCYTES # 0.4 10^3/ul (0.8-2.9); LYMPHOCYTES % 9.2 % (15.0-51.0); MEAN CORPUSCULAR HGB CONC 34.6 g/dl (32.0-37.0); MEAN CORPUSCULAR VOLUME 101.2 fl (82.0-101.0); MEAN PLATELET VOLUME 10.5 fl (7.4-10.4); MONOCYTE # 0.6 10^3/ul (0.3-0.9); MONOCYTES % 14.2 % (0.0-11.0); NEUTROPHIL # 3.1 10^3/ul (1.6-7.5); NEUTROPHILS % 73.5 % (39.0-77.0); PLATELET COUNT 71 10^3/UL (140-415); RED BLOOD COUNT 3.46 10^6/ul (4.70-6.10); RED CELL DISTRIBUTION WIDTH 14.4 % (11.5-14.5); WHITE BLOOD COUNT 4.2 10^3/ul (4.8-10.8)
--- NOTE | 2017-01-22 08:38 | PN ---
Date/Time of Note Date/Time of Note DATE: 01/22/17 TIME: 08:36 Assessment/Plan VTE Prophylaxis VTE Prophylaxis Intervention: contraindicated Lines/Catheters IV [facility] ([facility] Peripheral IV Urinary Cath still in place: No Assessment/Plan Problems: (1) Pancytopenia Status: Acute Comment: Labs from today are still pending as of the time of this note. Will need to amend after those labs become available. (2) Laennec's cirrhosis (alcoholic) Status: Chronic Comment: Stable. Still waiting for possible paracentesis. Adjusting medications to see if diuretic therapy will be successful. Qualifiers: Ascites presence: with ascites Qualified Code: K70.31 - Alcoholic cirrhosis of liver with ascites (3) Ascites Status: Acute Comment: Pending on radiology. Qualifiers: Ascites type: due to alcoholic cirrhosis Qualified Code: K70.31 - Ascites due to alcoholic cirrhosis (4) Hyponatremia Status: Acute Comment: Probably resolved but as noted above today's labs are still pending and so the time of this note. Subjective 24 Hr Interval Summary Free Text/Dictation Patient reports that he is anxious to be discharged home. Constitutional: no complaints Respiratory: no complaints Cardiovascular: no complaints Gastrointestinal: other (Notes distention but reports he feels better) Exam/Review of Systems Vital Signs Vitals Vital Signs Date Time Temp Pulse Resp B/P Pulse Ox O2 Delivery O2 Flow Rate FiO2 01/22/17 08:23 98.2 91 18 95/52 96 01/20/17 04:30 Room Air Intake and Output 01/21/17 01/21/17 01/22/17 15:00 23:00 07:00 Intake Total 200 ml Balance 200 ml Exam Constitutional: alert, oriented Respiratory: clear to auscultation, normal air movement Cardiovascular: nl pulses, regular rate and rhythm Gastrointestinal: distended, other (Positive fluid wave) Results Result Diagram: 01/21/17 0758 01/21/17 0758 Medications Medications Current Medications Ondansetron HCl (Zofran Inj) 4 mg Q6H PRN IV NAUSEA AND/OR VOMITING; Start 06/25 at 09:30 Morphine Sulfate (morphine) 2 mg Q4H PRN IV SEVERE PAIN LEVEL 7-10; Start 01/18 at 09:30 Pantoprazole (Protonix Tab) 40 mg DAILY@06 PO Last administered on 01/22/17 05 :37; Admin Dose 40 MG; Start 01/19/17 at 06:00 Cholecalciferol (Vitamin D) 1,000 unit DAILY PO Last administered on 01/21/17 08:39; Admin Dose 1,000 UNIT; Start 01/19/17 at 09:00 Lactulose (Enulose) 20 gm Q8 PO Last administered on 01/22/17 05:37; Admin Dose 20 GM; Start 01/18/17 at 14:00 Spironolactone (Aldactone) 50 mg DAILY@06 PO Last administered on 01/22/17 05: 37; Admin Dose 50 MG; Start 01/20/17 at 16:00 Tamsulosin HCl (Flomax) 0.4 mg HS PO Last administered on 01/21/17 20:30; Admin Dose 0.4 MG; Start 01/20/17 at 21:00 EARL GOODMAN MD Jan 22, 2017 08:38
[2017-01-22 08:59] LABS: CALCIUM 8.4 mg/dl (8.4-10.2); CREATININE 0.74 mg/dl (0.61-1.24); POTASSIUM 4.8 mmol/L (3.5-5.1)
[2017-01-22] MEDS: CHOLECALCIFEROL 1,000 UNIT TAB PO SCH (09:02)
--- NOTE | 2017-01-22 09:56 | CONS ---
Date/Time of Note Date/Time of Note DATE: 01/22/17 TIME: 09:52 Consult Date/Type/Reason Admit Date/Time Jan 18, 2017 at 05:50 Type of Consultation: nephrology Subjective pt. with no new c/o. good uop. no neuro sxs. Exam eneral: Obese 56 year-old male lying in bed in no apparent distress. HEENT: Normocephalic, atraumatic. Eyes: Anicteric sclerae, conjunctivae clear. ENT: Nasal septum midline, oral mucosa moist. Neck supple, no JVD noticed. Respiratory: Bilaterally clear breath sounds. No use of accessory muscles of respiration. No adventitious breath sounds. Cardiovascular: S1, S2 heard. No murmurs or gallops. Abdomen: Soft and nontender. Ascites. Genitourinary: Deferred. Extremities: No cyanosis, no clubbing. Bilateral lower extremity 1-2+ pitting edema. Left foot ulcer over the medial malleolus, healing. Neurologic: Cranial nerves II through XII grossly intact. The patient is awake, alert, and oriented. Skin: Normal skin turgor. No skin rashes. Objective Vital Signs Date Time Temp Pulse Resp B/P Pulse Ox O2 Delivery O2 Flow Rate FiO2 01/22/17 08:23 98.2 91 18 95/52 96 01/20/17 04:30 Room Air Intake and Output 01/21/17 01/21/17 01/22/17 15:00 23:00 07:00 Intake Total 200 ml Balance 200 ml Results/Medications Result Diagram: 01/22/17 0700 01/22/17 0700 Results 24 hrs Laboratory Tests Test 01/22/17 07:00 White Blood Count 4.2 L Red Blood Count 3.46 L Hemoglobin 12.1 L Hematocrit 35.0 L Mean Corpuscular Volume 101.2 H Mean Corpuscular Hemoglobin 35.0 H Mean Corpuscular Hemoglobin Concent 34.6 Red Cell Distribution Width 14.4 Platelet Count 71 L Mean Platelet Volume 10.5 H Neutrophils % 73.5 Lymphocytes % 9.2 L Monocytes % 14.2 H Eosinophils % 2.1 Basophils % 0.5 Nucleated Red Blood Cells % 0.0 Neutrophils # 3.1 Lymphocytes # 0.4 L Monocytes # 0.6 Eosinophils # 0.1 Basophils # 0.0 Nucleated Red Blood Cells # 0.0 Sodium Level 128 L Potassium Level 4.8 Chloride Level 97 Carbon Dioxide Level 20 L Anion Gap 16 Blood Urea Nitrogen 14 Creatinine 0.74 Glucose Level 102 Calcium Level 8.4 Medications Current Medications Ondansetron HCl (Zofran Inj) 4 mg Q6H PRN IV NAUSEA AND/OR VOMITING; Start 06/25 at 09:30 Morphine Sulfate (morphine) 2 mg Q4H PRN IV SEVERE PAIN LEVEL 7-10; Start 01/18 at 09:30 Pantoprazole (Protonix Tab) 40 mg DAILY@06 PO Last administered on 01/22/17 05 :37; Admin Dose 40 MG; Start 01/19/17 at 06:00 Cholecalciferol (Vitamin D) 1,000 unit DAILY PO Last administered on 01/22/17 09:02; Admin Dose 1,000 UNIT; Start 01/19/17 at 09:00 Lactulose (Enulose) 20 gm Q8 PO Last administered on 01/22/17 05:37; Admin Dose 20 GM; Start 01/18/17 at 14:00 Spironolactone (Aldactone) 50 mg DAILY@06 PO Last administered on 01/22/17 05: 37; Admin Dose 50 MG; Start 01/20/17 at 16:00 Tamsulosin HCl (Flomax) 0.4 mg HS PO Last administered on 01/21/17 20:30; Admin Dose 0.4 MG; Start 01/20/17 at 21:00 Assessment/Plan Chief Complaint/Hosp Course Assessment/Plan Chief Complaint/Hosp Course 1. Hyponatremia -Etiology secondary to increased ADH levels due to underlying cirrhosis pathophysiology -Patient is sp 3% sodium chloride drip -Sodium levels have slowly improved. worse this am. -We will monitor serial sodium levels closely -Limit free water intake, treat underlying condition. no indication for hypertonic. 2. Hyperkalemia -Etiology secondary to Aldactone effect. improved. 3. Anemia monitor H&H levels 4. Decompensated cirrhosis -Patient status post paracentesis 10 L removed -Patient receiving IV albumin 5. Venous stasis ulcer -Continue wound care Problems: AMNA SILVA MD Jan 22, 2017 09:56
[2017-01-22 15:57] LABS: INR 1.72; PROTIME 20.3 Sec (12.2-14.2); PT RATIO 1.6
[2017-01-22] MEDS: TAMSULOSIN (SR) 0.4 MG CAP PO SCH (21:33)
[2017-01-23] VITALS (13 sets, daily range): BP systolic 85–108; BP diastolic 53–64; PULSE 91–105; RESP 16–19
[2017-01-23] MEDS: LACTULOSE 30ML CUP PO SCH ×3 (05:36→21:39)
[2017-01-23] MEDS: SPIRONOLACTONE 50 MG TAB PO SCH (05:37)
[2017-01-23] MEDS: FUROSEMIDE 20 MG TAB PO SCH ×2 (05:37→17:14)
[2017-01-23] MEDS: PANTOPRAZOLE (EC) 40 MG TAB PO SCH (05:37)
[2017-01-23 07:26] LABS: ADD SCAN DIFF NO
[2017-01-23 07:30] LABS: ABNORMAL IP MESSAGE 1; BASOPHILS % 0.5 % (0.0-2.0); EOSINOPHILS # 0.1 10^3/ul (0.0-0.5); EOSINOPHILS % 2.1 % (0.0-7.0); HEMATOCRIT 33.7 % (42.0-52.0); HEMOGLOBIN 11.8 g/dl (14.0-18.0); LYMPHOCYTES # 0.6 10^3/ul (0.8-2.9); MEAN CORPUSCULAR HEMOGLOBIN 35.1 pg (29.0-33.0); MEAN CORPUSCULAR VOLUME 100.3 fl (82.0-101.0); MEAN PLATELET VOLUME 10.5 fl (7.4-10.4); MONOCYTE # 0.6 10^3/ul (0.3-0.9); NEUTROPHIL # 3.1 10^3/ul (1.6-7.5); NEUTROPHILS % 70.9 % (39.0-77.0); PLATELET COUNT 66 10^3/UL (140-415); RED BLOOD COUNT 3.36 10^6/ul (4.70-6.10); RED CELL DISTRIBUTION WIDTH 14.2 % (11.5-14.5); WHITE BLOOD COUNT 4.4 10^3/ul (4.8-10.8)
[2017-01-23 08:12] LABS: ALBUMIN 2.6 g/dl (3.3-4.9); ALBUMIN/GLOBULIN RATIO 0.7; BILIRUBIN,INDIRECT 2.4 mg/dl (0-1.1); BILIRUBIN,TOTAL 2.4 mg/dl (0.2-1.3); CALCIUM 8.2 mg/dl (8.4-10.2); CREATININE 0.77 mg/dl (0.61-1.24); POTASSIUM 5.3 mmol/L (3.5-5.1); TOTAL PROTEIN 6.3 g/dl (6.1-8.1)
[2017-01-23] MEDS: CHOLECALCIFEROL 1,000 UNIT TAB PO SCH (08:15)
--- NOTE | 2017-01-23 10:46 | PN ---
Date/Time of Note Date/Time of Note DATE: 01/23/17 TIME: 10:43 Assessment/Plan Lines/Catheters IV [facility]ter Type (from [facility] Saline Lock Urinary Cath still in place: No Assessment/Plan Chief Complaint/Hosp Course 1. Hyponatremia -Etiology secondary to increased ADH levels due to underlying cirrhosis pathophysiology -Patient status post 3% sodium, -Sodium levels have improved overall. Slight decrease in last 24 hour -Limit free water intake -Monitor on Lasix 2. Hyperkalemia -Etiology secondary to Aldactone effect. -We will DC Aldactone 3. Anemia monitor H&H levels - 4. Decompensated cirrhosis -Status post paracentesis -Patient may require another paracentesis, give IV albumin following procedure 5. Venous stasis ulcer -Continue wound care Problems: Subjective 24 Hr Interval Summary Free Text/Dictation Patient is stable no acute events overnight -Pending possible paracentesis Exam/Review of Systems Vital Signs Vitals Vital Signs Date Time Temp Pulse Resp B/P Pulse Ox O2 Delivery O2 Flow Rate FiO2 01/23/17 08:08 98.0 87 19 85/57 97 01/20/17 04:30 Room Air Intake and Output 01/22/17 01/22/17 01/23/17 15:00 23:00 07:00 Intake Total 450 ml 350 ml Balance 450 ml 350 ml Exam eneral: Obese 56 year-old male lying in bed in no apparent distress. HEENT: Normocephalic, atraumatic. Eyes: Anicteric sclerae, conjunctivae clear. ENT: Nasal septum midline, oral mucosa moist. Neck supple, no JVD noticed. Respiratory: Bilaterally clear breath sounds. No use of accessory muscles of respiration. No adventitious breath sounds. Cardiovascular: S1, S2 heard. No murmurs or gallops. Abdomen: Soft and nontender. Ascites. Genitourinary: Deferred. Extremities: No cyanosis, no clubbing. Bilateral lower extremity 1-2+ pitting edema. Left foot ulcer over the medial malleolus, healing. Neurologic: Cranial nerves II through XII grossly intact. The patient is awake, alert, and oriented. Skin: Normal skin turgor. No skin rashes. Results Result Diagram: 01/23/17 0607 01/23/17 0607 Results 24 hrs Laboratory Tests Test 01/22/17 11:38 01/22/17 15:05 01/23/17 06:07 Lab Scanned Report REFERENCE LAB Prothrombin Time 20.3 H Prothrombin Time Ratio 1.6 INR International Normalized Ratio 1.72 White Blood Count 4.4 L Red Blood Count 3.36 L Hemoglobin 11.8 L Hematocrit 33.7 L Mean Corpuscular Volume 100.3 Mean Corpuscular Hemoglobin 35.1 H Mean Corpuscular Hemoglobin Concent 35.0 Red Cell Distribution Width 14.2 Platelet Count 66 L Mean Platelet Volume 10.5 H Neutrophils % 70.9 Lymphocytes % 13.0 L Monocytes % 13.0 H Eosinophils % 2.1 Basophils % 0.5 Nucleated Red Blood Cells % 0.0 Neutrophils # 3.1 Lymphocytes # 0.6 L Monocytes # 0.6 Eosinophils # 0.1 Basophils # 0.0 Nucleated Red Blood Cells # 0.0 Sodium Level 124 L Potassium Level 5.3 H Chloride Level 96 L Carbon Dioxide Level 20 L Anion Gap 13 Blood Urea Nitrogen 16 Creatinine 0.77 Glucose Level 106 Calcium Level 8.2 L Total Bilirubin 2.4 H Direct Bilirubin 0.00 Indirect Bilirubin 2.4 H Aspartate Amino Transf (AST/SGOT) 89 H Alanine Aminotransferase (ALT/SGPT) 73 H Alkaline Phosphatase 193 H Total Protein 6.3 Albumin 2.6 L Globulin 3.70 H Albumin/Globulin Ratio 0.70 Medications Medications Current Medications Ondansetron HCl (Zofran Inj) 4 mg Q6H PRN IV NAUSEA AND/OR VOMITING; Start 06/25 at 09:30 Morphine Sulfate (morphine) 2 mg Q4H PRN IV SEVERE PAIN LEVEL 7-10; Start 01/18 at 09:30 Pantoprazole (Protonix Tab) 40 mg DAILY@06 PO Last administered on 01/23/17 05 :37; Admin Dose 40 MG; Start 01/19/17 at 06:00 Cholecalciferol (Vitamin D) 1,000 unit DAILY PO Last administered on 01/23/17 08:15; Admin Dose 1,000 UNIT; Start 01/19/17 at 09:00 Lactulose (Enulose) 20 gm Q8 PO Last administered on 01/23/17 05:36; Admin Dose 20 GM; Start 01/18/17 at 14:00 Spironolactone (Aldactone) 50 mg DAILY@06 PO Last administered on 01/23/17 05: 37; Admin Dose 50 MG; Start 01/20/17 at 16:00 Tamsulosin HCl (Flomax) 0.4 mg HS PO Last administered on 01/22/17t 21:33; Admin Dose 0.4 MG; Start 01/20/17 at 21:00 LUPE ANDRADE DO Jan 23, 2017 10:45
--- NOTE | 2017-01-23 14:16 | PN ---
Date/Time of Note Date/Time of Note DATE: 01/23/17 TIME: 14:06 Assessment/Plan VTE Prophylaxis VTE Prophylaxis Intervention: ambulation, SCD's Lines/Catheters IV Catheter Type (from [facility]): Saline Lock Urinary Cath still in place: No Assessment/Plan Chief Complaint/Hosp Course 1. Decompensated alcoholic cirrhosis with recurrent ascites requiring multiple paracentesis. -Patient is scheduled for another session of paracentesis today followed by albumin. -Continue with diuretics. 2. Hyponatremia secondary to cirrhosis. Status post from 3% normal saline. -Nephrology on board and will follow recommendation. Patient is on free water restriction. 3. Hyperbilirubinemia with transaminitis secondary to underlying liver cirrhosis. Avoid hepatotoxic medications. 4. Anemia/pancytopenia/coagulopathy secondary to underlying liver cirrhosis. Avoid anticoagulation. Monitor for any bleeding. 5. Left lower extremity venous stasis ulcer. The patient being followed by podiatry. Continue local wound care as per the wound care team. 6. Hyperkalemia, likely secondary to Aldactone. Nephrology on board and will follow recommendations DVT prophylaxis: SCDs PUD prophylaxis: Protonix. Case discussed with Dr. Lutz Problems: Subjective 24 Hr Interval Summary Free Text/Dictation Patient lying in bed. Complaining of abdominal distention and discomfort. Exam/Review of Systems Vital Signs Vitals Vital Signs Date Time Temp Pulse Resp B/P Pulse Ox O2 Delivery O2 Flow Rate FiO2 01/23/17 12:39 97.8 99 19 102/57 98 01/20/17 04:30 Room Air Intake and Output 01/22/17 01/22/17 01/23/17 15:00 23:00 07:00 Intake Total 450 ml 350 ml Balance 450 ml 350 ml Exam General: Well developed,adequately built, not in any acute distress . HEENT: Normocephalic, Atraumatic, No laceration or hematoma; Eyes: PEERL, Conjunctiva clear, Anicteric sclera Neck: Supple without any lymphadenopathy, nontender, no JVD, no carotid bruits, trachea midline, no thyromegaly Cardiac: S1, S2 auscultated, regular rhythm and rate, no mumurs or gallop Pulmonary: Normal respiratory effort. Chest clear to auscultation bilaterally, no adventitious breath sounds GI: Abdomen distended to inspection. no masses, no rebound tenderness or guarding. Genitourinary: Deferred Extremities: Healing ulcer on left foot malleolus. No cyanosis, clubbing, or edema. Pulses [2+] bilaterally. Full ROM on all four extremities. No focal weakness appreciated. Neurologic: Alert to person, place, time, and situation. Affect appropriate, intact sensation. Skin: Clean,dry, and intact. No ecchymosis, no rashes, or lesions Results Result Diagram: 01/23/17 0607 01/23/17 0607 Results 24 hrs Laboratory Tests Test 01/22/17 15:05 01/23/17 06:07 01/23/17 12:08 Prothrombin Time 20.3 H Prothrombin Time Ratio 1.6 INR International Normalized Ratio 1.72 White Blood Count 4.4 L Red Blood Count 3.36 L Hemoglobin 11.8 L Hematocrit 33.7 L Mean Corpuscular Volume 100.3 Mean Corpuscular Hemoglobin 35.1 H Mean Corpuscular Hemoglobin Concent 35.0 Red Cell Distribution Width 14.2 Platelet Count 66 L Mean Platelet Volume 10.5 H Neutrophils % 70.9 Lymphocytes % 13.0 L Monocytes % 13.0 H Eosinophils % 2.1 Basophils % 0.5 Nucleated Red Blood Cells % 0.0 Neutrophils # 3.1 Lymphocytes # 0.6 L Monocytes # 0.6 Eosinophils # 0.1 Basophils # 0.0 Nucleated Red Blood Cells # 0.0 Sodium Level 124 L Potassium Level 5.3 H Chloride Level 96 L Carbon Dioxide Level 20 L Anion Gap 13 Blood Urea Nitrogen 16 Creatinine 0.77 Glucose Level 106 Calcium Level 8.2 L Total Bilirubin 2.4 H Direct Bilirubin 0.00 Indirect Bilirubin 2.4 H Aspartate Amino Transf (AST/SGOT) 89 H Alanine Aminotransferase (ALT/SGPT) 73 H Alkaline Phosphatase 193 H Total Protein 6.3 Albumin 2.6 L Globulin 3.70 H Albumin/Globulin Ratio 0.70 Bedside Glucose 92 Medications Medications Current Medications Ondansetron HCl (Zofran Inj) 4 mg Q6H PRN IV NAUSEA AND/OR VOMITING; Start 06/25 at 09:30 Morphine Sulfate (morphine) 2 mg Q4H PRN IV SEVERE PAIN LEVEL 7-10; Start 01/18 at 09:30 Pantoprazole (Protonix Tab) 40 mg DAILY@06 PO Last administered on 01/23/17t 05 :37; Admin Dose 40 MG; Start 01/19/17 at 06:00 Cholecalciferol (Vitamin D) 1,000 unit DAILY PO Last administered on 01/23/17 08:15; Admin Dose 1,000 UNIT; Start 01/19/17 at 09:00 Lactulose (Enulose) 20 gm Q8 PO Last administered on 01/23/17 05:36; Admin Dose 20 GM; Start 01/18/17 at 14:00 Tamsulosin HCl (Flomax) 0.4 mg HS PO Last administered on 01/22/17 21:33; Admin Dose 0.4 MG; Start 01/20/17 at 21:00 JUJU EASON NP Jan 23, 2017 14:16
[2017-01-23] MEDS: TAMSULOSIN (SR) 0.4 MG CAP PO SCH (21:39)
[2017-01-24] VITALS (13 sets, daily range): BP systolic 97–122; BP diastolic 51–68; PULSE 98–108; RESP 17–19; Ht 170.2 cm; Wt 90.5 kg
[2017-01-24] MEDS: FUROSEMIDE 20 MG TAB PO SCH ×2 (06:06→18:26)
[2017-01-24] MEDS: LACTULOSE 30ML CUP PO SCH ×3 (06:06→20:58)
[2017-01-24] MEDS: PANTOPRAZOLE (EC) 40 MG TAB PO SCH (06:06)
[2017-01-24 07:59] LABS: ADD SCAN DIFF NO
[2017-01-24 08:06] LABS: ABNORMAL IP MESSAGE 1; BASOPHILS % 0.5 % (0.0-2.0); EOSINOPHILS # 0.1 10^3/ul (0.0-0.5); EOSINOPHILS % 1.7 % (0.0-7.0); HEMATOCRIT 37.5 % (42.0-52.0); HEMOGLOBIN 13.4 g/dl (14.0-18.0); LYMPHOCYTES # 0.6 10^3/ul (0.8-2.9); LYMPHOCYTES % 9.8 % (15.0-51.0); MEAN CORPUSCULAR HEMOGLOBIN 36.2 pg (29.0-33.0); MEAN CORPUSCULAR HGB CONC 35.7 g/dl (32.0-37.0); MEAN CORPUSCULAR VOLUME 101.4 fl (82.0-101.0); MEAN PLATELET VOLUME 10.4 fl (7.4-10.4); MONOCYTE # 0.7 10^3/ul (0.3-0.9); MONOCYTES % 12.2 % (0.0-11.0); NEUTROPHIL # 4.5 10^3/ul (1.6-7.5); NEUTROPHILS % 75.1 % (39.0-77.0); PLATELET COUNT 76 10^3/UL (140-415); RED CELL DISTRIBUTION WIDTH 14.1 % (11.5-14.5); WHITE BLOOD COUNT 5.9 10^3/ul (4.8-10.8)
[2017-01-24] MEDS: CHOLECALCIFEROL 1,000 UNIT TAB PO SCH (08:38)
[2017-01-24 08:39] LABS: CALCIUM 8.3 mg/dl (8.4-10.2); CREATININE 0.84 mg/dl (0.61-1.24); MAGNESIUM 1.9 mg/dl (1.7-2.5); PHOSPHORUS 3.6 mg/dl (2.5-4.9); POTASSIUM 4.8 mmol/L (3.5-5.1)
--- NOTE | 2017-01-24 14:27 | PN ---
Date/Time of Note Date/Time of Note DATE: 01/24/17 TIME: 14:25 Assessment/Plan VTE Prophylaxis VTE Prophylaxis Intervention: SCD's Lines/Catheters IV [facility]from [facility] Saline Lock Urinary Cath still in place: No Assessment/Plan Chief Complaint/Hosp Course 1. Decompensated alcoholic cirrhosis with recurrent ascites requiring multiple paracentesis. -For paracentesis today followed by albumin. -Continue with diuretics. 2. Hyponatremia secondary to cirrhosis. Status post from 3% normal saline. -Nephrology on board and will follow recommendation. Patient is on free water restriction. 3. Hyperbilirubinemia with transaminitis secondary to underlying liver cirrhosis. - Avoid hepatotoxic medications. 4. Anemia/pancytopenia/coagulopathy secondary to underlying liver cirrhosis. Now stable. - Avoid anticoagulation. Monitor for any bleeding. 5. Left lower extremity venous stasis ulcer. -The patient being followed by podiatry. Continue local wound care as per the wound care team. 6. Hyperkalemia, likely secondary to Aldactone. Resolved - nephrology on board and will follow recommendations DVT prophylaxis: SCDs PUD prophylaxis: Protonix. Case discussed with Dr. Lutz Problems: Subjective 24 Hr Interval Summary Free Text/Dictation Patient with persistent abdominal distention. Paracentesis was not performed yesterday. Exam/Review of Systems Vital Signs Vitals Vital Signs Date Time Temp Pulse Resp B/P Pulse Ox O2 Delivery O2 Flow Rate FiO2 01/24/17 12:09 108 01/24/17 11:51 98.4 18 100/59 100 01/23/17 20:27 Room Air Intake and Output 01/23/17 01/23/17 01/24/17 15:00 23:00 07:00 Intake Total 800 ml Balance 800 ml Exam General: Well developed,adequately built, not in any acute distress . HEENT: Normocephalic, Atraumatic, No laceration or hematoma; Eyes: PEERL, Conjunctiva clear, Anicteric sclera Neck: Supple without any lymphadenopathy, nontender, no JVD, no carotid bruits, trachea midline, no thyromegaly Cardiac: S1, S2 auscultated, regular rhythm and rate, no mumurs or gallop Pulmonary: Normal respiratory effort. Chest clear to auscultation bilaterally, no adventitious breath sounds GI: Abdomen distended to inspection. no masses, no rebound tenderness or guarding. Genitourinary: Deferred Extremities: Healing ulcer on left foot malleolus. No cyanosis, clubbing, or edema. Pulses [2+] bilaterally. Full ROM on all four extremities. No focal weakness appreciated. Neurologic: Alert to person, place, time, and situation. Affect appropriate, intact sensation. Skin: Clean,dry, and intact. No ecchymosis, no rashes, or lesions Results Result Diagram: 01/24/1772401/24/17 0725 Results 24 hrs Laboratory Tests Test 01/24/17 07:25 White Blood Count 5.9 # Red Blood Count 3.70 L Hemoglobin 13.4 L Hematocrit 37.5 L Mean Corpuscular Volume 101.4 H Mean Corpuscular Hemoglobin 36.2 H Mean Corpuscular Hemoglobin Concent 35.7 Red Cell Distribution Width 14.1 Platelet Count 76 L Mean Platelet Volume 10.4 Neutrophils % 75.1 Lymphocytes % 9.8 L Monocytes % 12.2 H Eosinophils % 1.7 Basophils % 0.5 Nucleated Red Blood Cells % 0.0 Neutrophils # 4.5 Lymphocytes # 0.6 L Monocytes # 0.7 Eosinophils # 0.1 Basophils # 0.0 Nucleated Red Blood Cells # 0.0 Sodium Level 128 L Potassium Level 4.8 Chloride Level 97 Carbon Dioxide Level 17 L Anion Gap 19 H Blood Urea Nitrogen 18 Creatinine 0.84 Glucose Level 118 Calcium Level 8.3 L Phosphorus Level 3.6 Magnesium Level 1.9 Medications Medications Current Medications Ondansetron HCl (Zofran Inj) 4 mg Q6H PRN IV NAUSEA AND/OR VOMITING; Start 06/25 at 09:30 Morphine Sulfate (morphine) 2 mg Q4H PRN IV SEVERE PAIN LEVEL 7-10; Start 01/18 at 09:30 Pantoprazole (Protonix Tab) 40 mg DAILY@06 PO Last administered on 01/24/17 06 :06; Admin Dose 40 MG; Start 01/19/17 at 06:00 Cholecalciferol (Vitamin D) 1,000 unit DAILY PO Last administered on 01/24/17 08:38; Admin Dose 1,000 UNIT; Start 01/19/17 at 09:00 Lactulose (Enulose) 20 gm Q8 PO Last administered on 01/24/17 06:06; Admin Dose 20 GM; Start 01/18/17 at 14:00 Tamsulosin HCl (Flomax) 0.4 mg HS PO Last administered on 01/23/17t 21:39; Admin Dose 0.4 MG; Start 01/20/17 at 21:00 JUJU EASON NP Jan 24, 2017 14:26
[2017-01-24] MEDS ORDERED: LIDOCAINE 1% (MPF) 5 ML VIAL ONE (16:27)
--- NOTE | 2017-01-24 17:24 | RADRPT ---
PROCEDURE: Ultrasound guided paracentesis. CLINICAL INDICATION: Ascites and shortness of breath. COMPARISON: 01/18/2017. TECHNIQUE: The risks, benefits, and alternatives were explained to the patient and/or the patient's family, inc luding but not limited to bleeding, infection, pain, visceral or vascular damage, shock, and . The patient and/or the patient's family understood the risks and the alternatives and wished to pro ceed with the procedure. Informed written consent was obtained. A procedural time out was performed . The patient's name, date of , and procedure to be performed were verified. Utilizing ultrasound guidance, optimal location for entry to the peritoneal cavity was ascertained. The overlying skin was prepped and draped in the usual sterile fashion. Approximately 10 ml of 1% Xylocaine was injected locally for pain control. Using ultrasound guidance, an 8 [place]amese catheter wa s introduced into the peritoneal cavity in the right lower quadrant without difficulty. FINDINGS: Initial images demonstrate ascites. Approximately 11.8 liters of serous fluid was aspirated and sen t for laboratory analysis. The patient tolerated the procedure well without complication. IMPRESSION: 1. Successful ultrasound-guided paracentesis. RPTAT: QQ .Stuart Kim MD, Date Time Electronically viewed and signed by .Stuart Kim MD, on 01/24/2017 17:24 .R/
[2017-01-24 18:59] LABS: PATH REVIEW? NO
[2017-01-24] MEDS: TAMSULOSIN (SR) 0.4 MG CAP PO SCH (20:58)
[2017-01-24] MEDS ORDERED: ZOLPIDEM 5 MG TAB PO ONE (21:00)
[2017-01-24 21:11] LABS: FLD CLARITY HAZY; FLD COLOR YELLOW; FLD TYPE ASCITES; FLD WBC 42 /cmm
[2017-01-24 21:12] LABS: FLD RBC 2000 /uL
[2017-01-24 21:13] LABS: FLD MN % (M) 74 %; FLD OTHER CELLS 2 %; FLD PMN % (M) 24 %
[2017-01-25] VITALS (12 sets, daily range): BP systolic 89–112; BP diastolic 54–62; PULSE 95–100; RESP 15–19
[2017-01-25] MEDS: FUROSEMIDE 20 MG TAB PO SCH ×2 (05:35→17:58)
[2017-01-25] MEDS: PANTOPRAZOLE (EC) 40 MG TAB PO SCH (05:35)
[2017-01-25] MEDS: LACTULOSE 30ML CUP PO SCH ×3 (05:37→21:30)
[2017-01-25] MEDS: CHOLECALCIFEROL 1,000 UNIT TAB PO SCH (09:00)
[2017-01-25] MEDS: ALBUMIN HUMAN 25% 100 ML IV SCH ×2 (10:38→17:59)
--- NOTE | 2017-01-25 10:40 | CONS ---
Date/Time of Note Date/Time of Note DATE: 01/25/17 TIME: 10:37 Assessment/Plan Assessment/Plan Chief Complaint/Hosp Course Follow-up: Patient with venous stasis ulceration which is resolved at this time. Swelling is reduced. There is no ascending cellulitis and no discernible ulceration at this time. We will see him in follow-up on the at the . Problems: Consultation Date/Type/Reason Admit Date/Time Jan 18, 2017 at 05:50 Initial Consult Date Type of Consultation: podiatry Exam/Review of Systems Vital Signs Vitals Vital Signs Date Time Temp Pulse Resp B/P Pulse Ox O2 Delivery O2 Flow Rate FiO2 01/25/17 08:35 97 01/25/17 07:47 98.1 19 89/54 97 01/25/17 04:00 Room Air Intake and Output 01/24/17 01/24/17 01/25/17 15:00 23:00 07:00 Intake Total 600 ml 200 ml Balance 600 ml 200 ml Exam Musculoskeletal: joint tenderness, muscle tone, muscle weakness, nl extremities to inspection, nl gait and stance, other, range of motion, spine non -tender, swelling Results Result Diagram: 01/24/17 0725 01/24/17 0725 Results 24 hrs Laboratory Tests Test 01/24/17 17:30 Pathologist Review (Hematology) Body Fluid Type ASCITES Body Fluid Volume 1000.0 Body Fluid Color YELLOW Body Fluid Appearance HAZY Body Fluid WBC 42 Body Fluid RBC (Auto) 2000 Body Fluid Polynuclear WBCs 24 Body Fluid Polynuclear WBCs (%) Body Fluid Mononuclear WBCs 74 Body Fluid Mononuclear Cells % Auto Body Fluid Other Cells 2 Path Consult Signing Pathologist Medications Medications Current Medications Ondansetron HCl (Zofran Inj) 4 mg Q6H PRN IV NAUSEA AND/OR VOMITING; Start 06/25 at 09:30 Morphine Sulfate (morphine) 2 mg Q4H PRN IV SEVERE PAIN LEVEL 7-10; Start 01/18 at 09:30 Pantoprazole (Protonix Tab) 40 mg DAILY@06 PO Last administered on 01/25/17 05 :35; Admin Dose 40 MG; Start 01/19/17 at 06:00 Cholecalciferol (Vitamin D) 1,000 unit DAILY PO Last administered on 01/24/17 08:38; Admin Dose 1,000 UNIT; Start 01/19/17 at 09:00 Lactulose (Enulose) 20 gm Q8 PO Last administered on 01/25/17 05:37; Admin Dose 20 GM; Start 01/18/17 at 14:00 Tamsulosin HCl 0.4 mg 0.4 mg HS PO Last administered on 01/24/17 20:58; Admin Dose 0.4 MG; Start 01/20/17 at 21:00 Albumin Human (Albumin Human 25%) 100 ml @ 100 mls/hr Q8H IV ; Start 01/25/17 at 10:30; Stop 01/26/17 at 03:29 VAN SHAH DPM Jan 25, 2017 10:40
--- NOTE | 2017-01-25 14:01 | PN ---
Date/Time of Note Date/Time of Note DATE: 01/25/17 TIME: 14:01 Assessment/Plan VTE Prophylaxis VTE Prophylaxis Intervention: ambulation, SCD's Lines/Catheters IV Catheter Type (from [facility]): Saline Lock Urinary Cath still in place: No Assessment/Plan Chief Complaint/Hosp Course 1. Decompensated alcoholic cirrhosis with recurrent ascites requiring multiple paracentesis. -Status post paracentesis with 11.8 L output. -Continue diuretics. 2. Hyponatremia secondary to cirrhosis. Status post from 3% normal saline. -Nephrology on board and will follow recommendation. Patient is on free water restriction. 3. Hyperbilirubinemia with transaminitis secondary to underlying liver cirrhosis. - Avoid hepatotoxic medications. 4. Anemia/pancytopenia/coagulopathy secondary to underlying liver cirrhosis. Now stable. - Avoid anticoagulation. Monitor for any bleeding. 5. Left lower extremity venous stasis ulcer. -The patient being followed by podiatry. Continue local wound care as per the wound care team. -Needs follow-up with [facility] wound care center upon discharge. 6. Hyperkalemia, likely secondary to Aldactone. Resolved - nephrology on board and will follow recommendations DVT prophylaxis: SCDs PUD prophylaxis: Protonix. Plan: Once cleared from renal standpoint, discharge planning. Case discussed with Dr. Lutz Problems: Subjective 24 Hr Interval Summary Free Text/Dictation Status post paracentesis. Patient remained stable. No acute distress. Exam/Review of Systems Vital Signs Vitals Vital Signs Date Time Temp Pulse Resp B/P Pulse Ox O2 Delivery O2 Flow Rate FiO2 01/25/17 12:24 97 01/25/17 11:54 98.4 19 90/59 98 01/25/17 04:00 Room Air Intake and Output 01/24/17 01/24/17 01/25/17 15:00 23:00 07:00 Intake Total 600 ml 200 ml Balance 600 ml 200 ml Exam General: Well developed,adequately built, not in any acute distress . HEENT: Normocephalic, Atraumatic, No laceration or hematoma; Eyes: PEERL, Conjunctiva clear, Anicteric sclera Neck: Supple without any lymphadenopathy, nontender, no JVD, no carotid bruits, trachea midline, no thyromegaly Cardiac: S1, S2 auscultated, regular rhythm and rate, no mumurs or gallop Pulmonary: Normal respiratory effort. Chest clear to auscultation bilaterally, no adventitious breath sounds GI: Abdomen distended to inspection. no masses, no rebound tenderness or guarding. Genitourinary: Deferred Extremities: Healing ulcer on left foot malleolus. No cyanosis, clubbing, or edema. Pulses [2+] bilaterally. Full ROM on all four extremities. No focal weakness appreciated. Neurologic: Alert to person, place, time, and situation. Affect appropriate, intact sensation. Skin: Clean,dry, and intact. No ecchymosis, no rashes, or lesions Results Result Diagram: 01/24/1772401/24/17724 Results 24 hrs Laboratory Tests Test 01/24/17 17:30 Pathologist Review (Hematology) Body Fluid Type ASCITES Body Fluid Volume 1000.0 Body Fluid Color YELLOW Body Fluid Appearance HAZY Body Fluid WBC 42 Body Fluid RBC (Auto) 2000 Body Fluid Polynuclear WBCs 24 Body Fluid Polynuclear WBCs (%) Body Fluid Mononuclear WBCs 74 Body Fluid Mononuclear Cells % Auto Body Fluid Other Cells 2 Path Consult Signing Pathologist Medications Medications Current Medications Ondansetron HCl (Zofran Inj) 4 mg Q6H PRN IV NAUSEA AND/OR VOMITING; Start 06/25 at 09:30 Morphine Sulfate (morphine) 2 mg Q4H PRN IV SEVERE PAIN LEVEL 7-10; Start 01/18 at 09:30 Pantoprazole (Protonix Tab) 40 mg DAILY@06 PO Last administered on 01/25/17 05 :35; Admin Dose 40 MG; Start 01/19/17 at 06:00 Cholecalciferol (Vitamin D) 1,000 unit DAILY PO Last administered on 01/25/17 09:00; Admin Dose 1,000 UNIT; Start 01/19/17 at 09:00 Lactulose (Enulose) 20 gm Q8 PO Last administered on 01/25/17 05:37; Admin Dose 20 GM; Start 01/18/17 at 14:00 Tamsulosin HCl 0.4 mg 0.4 mg HS PO Last administered on 01/24/17 20:58; Admin Dose 0.4 MG; Start 01/20/17 at 21:00 Albumin Human (Albumin Human 25%) 100 ml @ 100 mls/hr Q8H IV Last administered on 01/25/17 10:38; Admin Dose 100 MLS/HR; Start 01/25/17 at 10:30 ; Stop 01/26/17 at 03:29 JUJU EASON NP Jan 25, 2017 14:01
[2017-01-25] MEDS: TAMSULOSIN (SR) 0.4 MG CAP PO SCH (21:30)
[2017-01-26] VITALS (10 sets, daily range): BP systolic 83–110; BP diastolic 50–58; PULSE 69–100; RESP 15–18
[2017-01-26] MEDS: ALBUMIN HUMAN 25% 100 ML IV SCH (01:59)
[2017-01-26] MEDS: LACTULOSE 30ML CUP PO SCH ×2 (05:58→13:01)
[2017-01-26] MEDS: PANTOPRAZOLE (EC) 40 MG TAB PO SCH (05:59)
[2017-01-26] MEDS: FUROSEMIDE 20 MG TAB PO SCH (05:59)
[2017-01-26 07:59] LABS: CALCIUM 8.8 mg/dl (8.4-10.2); CREATININE 0.78 mg/dl (0.61-1.24); MAGNESIUM 1.9 mg/dl (1.7-2.5); PHOSPHORUS 3.6 mg/dl (2.5-4.9)
[2017-01-26] MEDS: CHOLECALCIFEROL 1,000 UNIT TAB PO SCH (08:36)
--- NOTE | 2017-01-26 11:46 | PDOCDIS ---
Discharge Instructions CONDITION Patient Condition: Stable HOME CARE INSTRUCTIONS: Diet Instructions: 2gm Na FOLLOW UP/APPOINTMENTS Follow-up Plan 1.Follow up with primary care physician in 1 week-needs a repeat electrolyte level in 2 weeks. If you don't have one please let someone know, we can give you resources that may help you pick one. You may also call your insurance company to assign one to you. Review your medication list with your nurse before leaving and if you need new prescriptions please let your nurse know. I may have made changes to your home medications or given you new prescriptions, please let your primary doctor know as well. Stay compliant with your medications and report any side effects to your PCP or pharmacist. Return to the ER if you have any concerns and cannot reach your doctors or call your insurance company, they usually have a nurse that can help you. 2. Follow-up with [facility] wound care center in 1 week. JUJU EASON NP Jan 26, 2017 11:45
[2017-01-26] MEDS ORDERED: TAMS-14 PO (11:50)
--- NOTE | 2017-01-26 14:45 | DS ---
Date/Time of Note Date/Time of Note DATE: 01/26/17 TIME: 14:41 Discharge Summary Admission/Discharge Info Admit Date/Time Jan 18, 2017 at 05:50 Discharge Date/Time Discharge Diagnosis 1. Decompensated alcoholic cirrhosis with recurrent ascites requiring multiple paracentesis. 2. Hyponatremia secondary to cirrhosis. Stable. 3. Hyperbilirubinemia with transaminitis secondary to underlying liver cirrhosis. 4. Anemia/pancytopenia/coagulopathy secondary to underlying liver cirrhosis. 5. Left lower extremity venous stasis ulcer. 6. Hyperkalemia, likely secondary to Aldactone. Resolved Patient Condition: Stable Consults Boone Borges DO, Nephrology. Procedures 01/18/2017. Ultrasound-guided paracentesis. 10.5 L fluid output. 01/24/2017. Ultrasound-guided paracentesis. 11.8 L of fluid output. Hx of Present Illness Hospital Course This is a 56-year-old male with a past medical history of decompensated alcoholic liver cirrhosis with recurrent ascites and coagulopathy, dyslipidemia , anemia of chronic illness, pancytopenia, and bilateral chronic venous stasis ulcers on lower extremity, who presented to the emergency room with complaints of worsening abdominal distention with burning pain. Patient denied any fever, chills, nausea, vomiting, diarrhea, dysuria, hematuria, constipation, loss of consciousness, chest pain or other constitutional symptoms. Patient is also being worked up for a liver transplant at [facility]. Initial vital signs within acceptable range. CBC with platelet 1 19,000, otherwise unremarkable. BMP with a low sodium 117. Patient was admitted for further evaluation. Nephrology consult was called for hyponatremia. Patient was started on a regular diet with fluid restriction. He was also given DVT prophylaxis and GI prophylaxis. Patient had undergone paracentesis 2 times on 01/18/2017 and 2016 with 10.5 L, and 11.8 L serous fluid removal. Patient tolerated procedure very well. Electrolyte levels were monitored closely by nephrology panel and was given 3% sodium. Patient also had hyperkalemia which was secondary to Aldactone. H&H remained stable. For venous stasis ulcer, he was seen by our podiatry team and was continued on appropriate wound care regimen. At this time , patient is able to tolerate ambulation and diet very well. Abdominal distention has improved a lot. There was no further discomfort. Liver panel remained at baseline. Patient did not have any episode of bleeding. Sodium level remained at baseline. There was no neurological deficit. There was no further hyperkalemia. Patient is medically cleared from nephrology standpoint for outpatient follow-up. At this time, patient is medically stable for discharge with [facility] follow-up for further management of alcoholic liver cirrhosis. Patient to be followed up with [facility] wound care center for continuation of wound care. Disposition: Patient will be discharged home with outpatient follow-up. Patient verbalized discharge instructions. Condition at time of discharge is stable. Approximately 60 minutes was spent in coordinating the discharge on this patient. Case discussed with Dr. Lutz. Home Meds Active Scripts Cholecalciferol* (Vitamin D3*) 1,000 Unit Tablet, 1000 UNIT PO DAILY for 30 Days , TAB Prov:ELIO ARREGUIN ACADEMIC MANAGER 11/25/16 Reported Medications Magnesium Oxide* (Magnesium Oxide*) 400 Mg Tablet, 400 MG PO DAILY, TAB 01/18/17 Spironolactone* (Aldactone*) 50 Mg Tablet, 50 MG PO DAILY, #30 TAB 01/18/17 Lactulose* (Lactulose*) 10 Gm/15 Ml Solution, 30 ML PO Q8, ML 12/09/16 Furosemide* (Furosemide*) 20 Mg Tablet, 20 MG PO BID, #30 TAB 12/03/16 Pantoprazole* (Pantoprazole*) 40 Mg Tablet., 40 MG PO AC BREAKFAST, TAB 11/23/16 Follow-up Plan 1.Follow up with primary care physician in 1 week If you don't have one please let someone know, we can give you resources that may help you pick one. You may also call your insurance company to assign one to you. Review your medication list with your nurse before leaving and if you need new prescriptions please let your nurse know. I may have made changes to your home medications or given you new prescriptions, please let your primary doctor know as well. Stay compliant with your medications and report any side effects to your PCP or pharmacist. Return to the ER if you have any concerns and cannot reach your doctors or call your insurance company, they usually have a nurse that can help you. 2. Follow-up with [facility] wound care center in 1 week. Primary Care Provider Jan Card Pending Labs Laboratory Tests Test 01/26/17 07:11 Sodium Level 124mmol/L (135-144) Potassium Level 5.0mmol/L (3.5-5.1) Chloride Level 92mmol/L (97-110) Carbon Dioxide Level 19mmol/L (21-31) Anion Gap 18 (8-16) Blood Urea Nitrogen 19mg/dl (7-20) Creatinine 0.78mg/dl (0.61-1.24) Glucose Level 98mg/dl (70-220) Calcium Level 8.8mg/dl (8.4-10.2) Phosphorus Level 3.6mg/dl (2.5-4.9) Magnesium Level 1.9mg/dl (1.7-2.5) JUJU EASON V. ACADEMIC MANAGER Jan 26, 2017 14:45
--- NOTE | 2017-02-01 05:48 | PN ---
DATE: 01/24/2017 SUBJECTIVE DATA: The patient is stable. No acute events overnight. The patient is pending paracentesis. OBJECTIVE DATA: VITAL SIGNS: Blood pressure is 104/57, respirations 17, pulse 108, temperature 98.3. HEENT: Head is normocephalic. NECK: Supple. CARDIAC: Regular rate. RESPIRATORY: Lungs show diminished breath sounds at the bases. ABDOMEN: Soft. Nontender on palpation. No rebound guarding. Positive fluid wave. Positive distention. EXTREMITIES: Negative for clubbing, cyanosis. Trace edema. SKIN: No rashes. MUSCULOSKELETAL: No joint effusion. NEUROLOGIC: No focal deficits. MEDICATION: Patient medication has been reviewed. LABORATORY AND DIAGNOSTIC DATA: Sodium 128, potassium 4.8, chloride 97, BUN 18, creatinine .84. White count 5.9, hemoglobin is 13.4, hematocrit 37.4, platelet count is 76,000. ASSESSMENT AND PLAN: 1. Hypernatremia: Etiology is secondary to increased ADH levels due to underlying cirrhosis. The patient is status post-3 percent sodium chloride. Patient's sodium levels have improved and stable around previous baseline around 120 mEq per liter. At this point continue current treatment plan. Continue free water restrictions. Continue Lasix. Monitor closely. 2. Hyperkalemia secondary to Aldactone effect. Resolved. Continue to hold Aldactone. 3. Anemic. Monitor hemoglobin and hematocrit levels. 4. Compensated cirrhosis. The patient is pending paracentesis. Continue to monitor. Will give IV albumin following the procedure. 5. Venous stasis ulcer. Continue wound care. Dictated By: Boone Borges DO /[email or web address]/faby /Document#: [id number]
--- NOTE | 2017-02-01 06:42 | PN ---
DATE: 01/25/2017 SUBJECTIVE DATA: The patient had a paracentesis yesterday with 11 liters removed. The patient had no other acute events overnight. No hemoptysis, hematemesis, hematochezia. OBJECTIVE DATA: VITAL SIGNS: Blood pressure 89/54, respirations 19, pulse 76, temperature 98.1. HEENT: Normocephalic. NECK: Supple. HEART: Regular rate. LUNGS: Diminished breath sounds at the base. ABDOMEN: Soft. Nontender to palpation. No rebound guarding. EXTREMITIES: Negative for clubbing or cyanosis. No edema. DERMATOLOGIC: No rashes. MUSCULOSKELETAL: No joint effusion. NEUROLOGIC: Unchanged exam. MEDICATIONS: Reviewed. LABORATORY AND DIAGNOSTIC DATA: Currently pending. ASSESSMENT AND PLAN: 1. Hypernatremia, etiology secondary to increased of underlying cirrhosis and other physiology. The patient is status post 3% sodium chloride. The patient's sodium levels have improved. Continue free water restrictions. Continue to monitor closely. 2. Decompensated . The patient is status post large volume paracentesis. with IV albumin 1 gram/kg for over 24 hours to help prevent possibility of HR syndrome. Will monitor closely. 3. Hyperkalemia, resolved. 4. Anemia . 5. Venous stasis ulcers. Continue wound care. Dictated By: Boone Borges DO /charleen/irma /Document#: [id number]
--- NOTE | 2017-02-01 12:18 | CONS ---
DATE OF ADMISSION: 01/18/2017 DATE OF CONSULTATION: 01/18/2017 REASON FOR CONSULTATION: Hyponatremia. REQUESTING PHYSICIAN: Dr. Cooney. HISTORY OF PRESENT ILLNESS: This is a 56-year-old male with decompensated end-stage alcoholic liver cirrhosis with history of recurrent ascites, coagulopathy, dyslipidemia, anemia, chronic hyponatremia, who presents to the emergency department with complaints of abdominal distension. Patient has had multiple admissions to the emergency room for abdominal distension and has had multiple paracenteses in the last 2-3 months. The patient upon arrival here was noted to be hyponatremic with a sodium level of 117, hyperbilirubinemia, and transaminitis and a platelet count of 119. Patient was admitted to [facility] where he underwent a paracentesis with 10 L of volume removed. In terms of patient's renal history, patient has had chronic hyponatremia with sodium levels ranging from 124-125 mEq/L. The patient does admit to drinking copious amounts of water. Denies any rashes, fever, chills, nausea, vomiting. PAST MEDICAL HISTORY: As stated above. History of hyponatremia, history of cirrhosis decompensated, history of anemia. PAST SURGICAL HISTORY: None. ALLERGIES: NONE. SOCIAL HISTORY: Former drinker. MEDICATION: Reviewed. REVIEW OF SYSTEMS: A 14-point review of systems was conducted. Pertinent positives stated in HPI, otherwise negative. PHYSICAL EXAMINATION: VITAL SIGNS: Blood pressure 112/55, respirations 16, pulse 98, temperature 98.6 HEENT: Head is normocephalic. NECK: Supple. CARDIAC: Regular rate. LUNGS: Show diminished breath sounds at the bases. ABDOMEN: Distended, soft, nontender to palpation. EXTREMITIES: Negative for clubbing or cyanosis. Trace edema. DERMATOLOGIC: No rashes. MUSCULOSKELETAL: No joint . NEUROLOGIC: No focal deficits. LABORATORY: Shows sodium 117, potassium 4.4, chloride 94, BUN 19, creatinine 0.87. AST 97, ALT 74, alk phos 186, albumin 2.8. ASSESSMENT AND PLAN: This is a 56-year-old male who presents with: 1. Hyponatremia, chronic. Etiology secondary to elevated antidiuretic hormone levels due to underlying cirrhosis pathophysiology causing a decrease effective arterial volume. The possibility of a volume depletion as a contributing factor is a consideration. Patient also has been consuming copious amounts of fluid. Plan at this point is to do a full evaluation by checking urine sodium level, urine osmolality level, serum osmolality level, uric acid, TSH level and cortisol level. We will place the patient on free water restriction. We will monitor serum sodium levels. We will volume resuscitate with a course of intravenous albumin. If sodium levels are not improved, patient may require 3 percent sodium chloride. We will monitor closely. 2. Decompensated cirrhosis. Patient has noted ascites, coagulopathy. Patient is status post paracentesis. We will replete with intravenous albumin, monitor closely, continue medical management. 3. Thrombocytopenia secondary to cirrhosis. Continue to monitor. 4. Hyperbilirubinemia, transaminitis secondary to cirrhosis. Continue to observe. 5. Coagulopathy. We will give vitamin K, monitor. Thank you, Dr. Cooney, for this interesting consult. It will be a pleasure to follow the patient with you throughout the hospital course. Dictated By: Boone Borges DO /[email or web address]/augie /Document#: [id number]
== END 2017-01-26 17:25 | disposition home or self-care (01) | DRG 433 ==
LOC: E/R 04:29 → PP2 05:50 → MS4 01-19 00:05
PROVIDERS: ADMIT Family Medicine; ATTEND Family Medicine
PROC: 0W9G3ZX Drainage of Peritoneal Cavity, Percutaneous Approach, Diagnostic (ICD-10-PCS; principal; 2017-01-18)
PROC: 0W9G3ZX Drainage of Peritoneal Cavity, Percutaneous Approach, Diagnostic (ICD-10-PCS; 2017-01-24)
DX: K70.31 Alcoholic cirrhosis of liver with ascites (principal); E87.1 Hypo-osmolality and hyponatremia; D61.818 Other pancytopenia; Z76.82 Awaiting organ transplant status; D68.4 Acquired coagulation factor deficiency; E87.5 Hyperkalemia; L97.529 Non-pressure chronic ulcer of other part of left foot with unspecified severity; I87.2 Venous insufficiency (chronic) (peripheral); E78.5 Hyperlipidemia, unspecified; D63.8 Anemia in other chronic diseases classified elsewhere; E55.9 Vitamin D deficiency, unspecified; E66.9 Obesity, unspecified; Z68.31 Body mass index [BMI] 31.0-31.9, adult
CPT/HCPCS: 36415; 80048; 80053; 81001; 81003; 82043; 82140; 82962; 83615; 83690; 83735; 84100; 84155; 84157; 84295; 84300; 85025; 85049; 85610; 85670; 85730; 87070; 87102; 87116; 88104; 88305; 89050; 89051; 93005; 96374; 96375; J2270; J2405; J7040; P9047

== ENCOUNTER 2017-02-03 07:41 | Emergency (ER) | payer OTHER ==
[~2017-02-03] VITALS: Wt 91.0 kg
[~2017-02-03 07:41] MED LIST changes: +MAGN400T28 PO; +SPIR50TA PO
[2017-02-03 09:01] LABS: ABNORMAL IP MESSAGE 1; BASOPHILS % 0.8 % (0.0-2.0); EOSINOPHILS # 0.1 10^3/ul (0.0-0.5); EOSINOPHILS % 2.7 % (0.0-7.0); HEMATOCRIT 27.7 % (42.0-52.0); HEMOGLOBIN 9.6 g/dl (14.0-18.0); LYMPHOCYTES # 0.3 10^3/ul (0.8-2.9); LYMPHOCYTES % 13.3 % (15.0-51.0); MEAN CORPUSCULAR HEMOGLOBIN 35.7 pg (29.0-33.0); MEAN CORPUSCULAR HGB CONC 34.7 g/dl (32.0-37.0); MEAN PLATELET VOLUME 10.3 fl (7.4-10.4); MONOCYTE # 0.3 10^3/ul (0.3-0.9); MONOCYTES % 11.4 % (0.0-11.0); NEUTROPHIL # 1.8 10^3/ul (1.6-7.5); PLATELET COUNT 61 10^3/UL (140-415); POSITIVE DIFF @See below; RED BLOOD COUNT 2.69 10^6/ul (4.70-6.10); RED CELL DISTRIBUTION WIDTH 13.6 % (11.5-14.5); WHITE BLOOD COUNT 2.6 10^3/ul (4.8-10.8)
--- NOTE | 2017-02-03 09:24 | ERD ---
ER Documentation Chief Complaint Date/Time DATE: 02/03/17 TIME: 09:23 Chief Complaint PARACENTESIS HPI This is a 56-year-old man who has alcoholic cirrhosis who is here for paracentesis for his ascites. His last paracentesis was a week ago or so he states. He says is having some abdominal swelling but no pain. No shortness of breath dyspnea on exertion orthopnea. He is here just to have his abdominal cavity drain no GI symptoms such as vomiting or diarrhea ROS All systems reviewed and are negative except as per history of present illness. Medications Home Meds Active Scripts Cholecalciferol* (Vitamin D3*) 1,000 Unit Tablet, 1000 UNIT PO DAILY for 30 Days , TAB Prov:ELIO ARREGUIN FOUR CORNER FORMER MACHINE OPERATOR 11/25/16 Reported Medications Magnesium Oxide* (Magnesium Oxide*) 400 Mg Tablet, 400 MG PO DAILY, TAB 01/18/17 Spironolactone* (Aldactone*) 50 Mg Tablet, 50 MG PO DAILY, #30 TAB 01/18/17 Lactulose* (Lactulose*) 10 Gm/15 Ml Solution, 30 ML PO Q8, ML 12/09/16 Furosemide* (Furosemide*) 20 Mg Tablet, 20 MG PO BID, #30 TAB 12/03/16 Pantoprazole* (Pantoprazole*) 40 Mg Tablet.dr, 40 MG PO AC BREAKFAST, TAB 11/23/16 Allergies Allergies: Coded Allergies: No Known Allergy (Unverified , 01/18/17) PMhx/Soc Medical and Surgical Hx: pt denies Medical Hx History of Surgery: Yes (ABD SURG) Anesthesia Reaction: No Hx Neurological Disorder: No Hx Respiratory Disorders: No Hx Cardiac Disorders: No Hx Psychiatric Problems: No Hx Miscellaneous Medical Probl: No Hx Alcohol Use: Yes (LAST USE 2013) Hx Substance Use: No Hx Tobacco Use: No Smoking Status: Unknown if ever smoked FmHx Family History: No coronary disease Physical Exam Vitals Vital Signs Date Time Temp Pulse Resp B/P Pulse Ox O2 Delivery O2 Flow Rate FiO2 02/03/17 07:45 98.0 95 18 98/46 99 Physical Exam Const: Well-developed, well-nourished Head: Atraumatic, normocephalic Eyes: Normal Conjunctiva, PERRLA, EOMI, normal sclera, no nystagmus ENT: Normal External Ears, Nose and Mouth, moist mucus membranes. Neck: Full range of motion. No meningismus, no lymphadenopathy. Resp: Clear to auscultation bilaterally, no wheezing, rhonchi, rales Cardio: Regular rate and rhythm, no murmurs, S1 S2 present Abd: Soft, nontender 4, positive ascites, distended. Normal bowel sounds, no guarding or rebound, no pulsitile abdominal masses or bruits Skin: No petechiae or rashes, no ecchymosis , no maculopapular rash Back: No midline or flank tenderness Ext: No cyanosis, or edema, FROM x 4, normal inspection, neurovascularly intact x 4 Neur: Awake and alert, STR 5/5 x 4, sensation intact x 4, no focal findings, cerebellum intact Psych: Normal Mood and Affect Result Diagram: 02/03/17 0840 Results 24 hrs Laboratory Tests Test 02/03/17 08:40 White Blood Count 2.610^3/ul Red Blood Count 2.6910^6/ul Hemoglobin 9.6g/dl Hematocrit 27.7% Mean Corpuscular Volume 103.0fl Mean Corpuscular Hemoglobin 35.7pg Mean Corpuscular Hemoglobin Concent 34.7g/dl Red Cell Distribution Width 13.6% Platelet Count 6110^3/UL Mean Platelet Volume 10.3fl Neutrophils % 71.0% Lymphocytes % 13.3% Monocytes % 11.4% Eosinophils % 2.7% Basophils % 0.8% Nucleated Red Blood Cells % 0.0/100WBC Neutrophils # 1.810^3/ul Lymphocytes # 0.310^3/ul Monocytes # 0.310^3/ul Eosinophils # 0.110^3/ul Basophils # 0.010^3/ul Nucleated Red Blood Cells # 0.010^3/ul Procedures/MDM Patient was taken to radiology for interventional ultrasound-guided paracentesis. The patient tolerated the paracentesis well the patient be discharged home in stable condition Departure Diagnosis: Primary Impression: Ascites Ascites type: due to alcoholic hepatitis Qualified Code: K70.11 - Ascites due to alcoholic hepatitis Condition: Stable Patient Instructions: TA Bhakta DO Feb 03, 2017 09:24
[2017-02-03 09:34] LABS: INR 1.84; PARTIAL THROMBOPLASTIN TIME 43.4 Sec (25.0-35.0); PROTIME 21.4 Sec (12.2-14.2); PT RATIO 1.7
[2017-02-03 09:36] LABS: ALBUMIN 2.6 g/dl (3.3-4.9); ALBUMIN/GLOBULIN RATIO 0.72; BILIRUBIN,INDIRECT 1.9 mg/dl (0-1.1); BILIRUBIN,TOTAL 1.9 mg/dl (0.2-1.3); CALCIUM 7.7 mg/dl (8.4-10.2); CREATININE 0.82 mg/dl (0.61-1.24); POTASSIUM 4.9 mmol/L (3.5-5.1); TOTAL PROTEIN 6.2 g/dl (6.1-8.1)
[2017-02-03 09:46] LABS: ANISOCYTOSIS 1+ (0-0); BASOPHILS % (M) 2 % (0-2); EOSINOPHILS % (M) 2 % (0-7); GIANT THROMBO% (M) 4 % (0-0); MONOCYTES % (M) 5 % (0-11); PLATELET ESTIMATE DECREASED; POLYCHROMASIA 3+ (0-0)
[2017-02-03] MEDS ORDERED: LIDOCAINE 1% (MPF) 5 ML VIAL ONE (10:15)
--- NOTE | 2017-02-03 11:00 | RADRPT ---
PROCEDURE: Ultrasound guided paracentesis. CLINICAL INDICATION: Ascites and shortness of breath. COMPARISON: 01/24/2017. TECHNIQUE: The risks, benefits, and alternatives were explained to the patient and/or the patient's family, inc luding but not limited to bleeding, infection, pain, visceral or vascular damage, shock, and . The patient and/or the patient's family understood the risks and the alternatives and wished to pro ceed with the procedure. Informed written consent was obtained. A procedural time out was performed . The patient's name, date of , and procedure to be performed were verified. Utilizing ultrasound guidance, optimal location for entry to the peritoneal cavity was ascertained. The overlying skin was prepped and draped in the usual sterile fashion. Approximately 10 ml of 1% Xylocaine was injected locally for pain control. Using ultrasound guidance, an 8 Ethiopian catheter wa s introduced into the peritoneal cavity in the right lower quadrant without difficulty. FINDINGS: Initial images demonstrate ascites. Approximately 10.0 liters of serous fluid was aspirated and dis carded. The patient tolerated the procedure well without complication. IMPRESSION: 1. Successful ultrasound-guided paracentesis. RPTAT: QQ .Stuart Kim MD, Date Time Electronically viewed and signed by .Stuart Kim MD, on 02/03/2017 11:00 .R/
[2017-02-03 11:20] VITALS: BP 89/51; PULSE 85; RESP 18; TEMP 98
== END 2017-02-03 11:21 | disposition home or self-care (01) ==
LOC: E/R 07:41
DX: K70.11 Alcoholic hepatitis with ascites (principal)
CPT/HCPCS: 80053; 85025; 85610; 85730; Z7610; 36415

== ENCOUNTER 2017-02-10 07:40 | Emergency (ER) | payer SELFPAY ==
[~2017-02-10] VITALS: Ht 167.6 cm; Wt 97.0 kg
[2017-02-10 07:41] VITALS: Ht 167.6 cm; Wt 97.0 kg
[2017-02-10] MEDS ORDERED: LIDOCAINE 1% (MPF) 5 ML VIAL ONE (09:05)
--- NOTE | 2017-02-10 09:49 | RADRPT ---
PROCEDURE: Ultrasound guided paracentesis. CLINICAL INDICATION: Ascites and shortness of breath. COMPARISON: 02/03/2017. TECHNIQUE: The risks, benefits, and alternatives were explained to the patient and/or the patient's family, inc luding but not limited to bleeding, infection, pain, visceral or vascular damage, shock, and . The patient and/or the patient's family understood the risks and the alternatives and wished to pro ceed with the procedure. Informed written consent was obtained. A procedural time out was performed . The patient's name, date of , and procedure to be performed were verified. Utilizing ultrasound guidance, optimal location for entry to the peritoneal cavity was ascertained. The overlying skin was prepped and draped in the usual sterile fashion. Approximately 10 ml of 1% Xylocaine was injected locally for pain control. Using ultrasound guidance, an 8 Sudanese catheter wa s introduced into the peritoneal cavity in the right lower quadrant without difficulty. FINDINGS: Initial images demonstrate ascites. Approximately 11.0 liters of serous fluid was aspirated and dis carded. The patient tolerated the procedure well without complication. IMPRESSION: 1. Successful ultrasound-guided paracentesis. RPTAT: QQ .Stuart Kim MD, Date Time Electronically viewed and signed by .Stuart Kim MD, on 02/10/2017 09:49 .R/
[2017-02-10 10:24] VITALS: BP 97/55; PULSE 89; RESP 14; TEMP 98.2
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
== END 2017-02-10 10:38 | disposition home or self-care (01) ==
LOC: E/R 07:40
DX: R18.8 Other ascites (principal)

== ENCOUNTER 2017-02-12 07:56 | Emergency (ER) | payer OTHER ==
[~2017-02-12] VITALS: Wt 81.3 kg
[2017-02-12] MEDS ORDERED: ALBUMIN HUMAN 25% 50 ML IV ONE (08:30)
[2017-02-12] MEDS ORDERED: morphine 2 MG INJ IV STA (08:53)
[2017-02-12] MEDS ORDERED: ONDANSETRON 4 MG INJ IV STA (08:53)
[2017-02-12 09:12] VITALS: TEMP 99.2
[2017-02-12 09:14] LABS: ABNORMAL IP MESSAGE 1; BASOPHILS % 0.3 % (0.0-2.0); EOSINOPHILS % 0.2 % (0.0-7.0); HEMATOCRIT 33.9 % (42.0-52.0); LYMPHOCYTES # 0.2 10^3/ul (0.8-2.9); MEAN CORPUSCULAR HEMOGLOBIN 36.1 pg (29.0-33.0); MEAN CORPUSCULAR HGB CONC 35.4 g/dl (32.0-37.0); MEAN CORPUSCULAR VOLUME 102.1 fl (82.0-101.0); MEAN PLATELET VOLUME 10.2 fl (7.4-10.4); MONOCYTE # 0.2 10^3/ul (0.3-0.9); MONOCYTES % 3.6 % (0.0-11.0); NEUTROPHIL # 5.9 10^3/ul (1.6-7.5); NEUTROPHILS % 92.6 % (39.0-77.0); PLATELET COUNT 98 10^3/UL (140-415); POSITIVE DIFF @See below; RED BLOOD COUNT 3.32 10^6/ul (4.70-6.10); RED CELL DISTRIBUTION WIDTH 13.9 % (11.5-14.5); WHITE BLOOD COUNT 6.4 10^3/ul (4.8-10.8)
--- NOTE | 2017-02-12 09:20 | ERD ---
ER Documentation Chief Complaint Date/Time DATE: 02/12/17 TIME: 09:14 Chief Complaint abd pain and distention, paracenthesis 2 days ago. pt here for iv albumin HPI This is a 57-year-old female with known history of alcoholic liver cirrhosis currently on a liver transplant list. The patient has not consumed alcohol for over 3 years. Indicates that he receives therapeutic paracentesis is on a weekly basis. He stated that 2 days prior to arrival at [facility] he had roughly 10 L of fluid removed. He indicated that there was a significant amount of abdominal distention that still remained but given that they had taken off so much fluid the fuse to take off any more ascitic fluid. The patient also indicates he did not receive albumin. He represents to the emergency department today requesting for further paracentesis for removal of more ascitic fluid and IV albumin. He denies any lightheadedness. He complains of mild difficulty breathing from the abdominal distention which she states is similar nature to his previous episodes of tense ascites. He denies any hemoptysis hematemesis or melanotic stools. He has had no fevers or shaking or chills ROS All systems reviewed and are negative except as per history of present illness. Allergies Allergies: Coded Allergies: No Known Allergy (Unverified , 02/12/17) Physical Exam Vitals Vital Signs Date Time Temp Pulse Resp B/P Pulse Ox O2 Delivery O2 Flow Rate FiO2 02/12/17 09:12 99.2 111 19 107/62 99 Room Air 02/12/17 08:20 98.5 122 20 101/58 98 Physical Exam Constitutional:Well-developed. Well-nourished. HEENT:Normocephalic. Atraumatic.Pupils were equal round reactive to light. Moist mucous membranes.No tonsillar exudates. Neck: No nuchal rigidity. No lymphadenopathy. No posterior cervical spine tenderness or step-offs. Respiratory: Not using accessory muscles of respiration.Lungs were clear to auscultation bilaterally. No rhonchi. No rales. No wheezing. Cardiovascular: Regular rate regular rhythm.No murmurs. No rubs were appreciated.S1, S2 normal. Distal pulses are palpable 2+ bilaterally. GI: Abdomen was soft. Nontender. Tense abdominal ascites. No pulsatile abdominal masses or bruits. No rebound. No guarding. Bowel sounds were present and normal. Muscle skeletal: Full range of motion of both the upper and lower extremities bilaterally.Normal muscle tone.No assymetrical calf tenderness or swelling. Skin: No petechia, no purpura. No lesions on the palms or the soles of the feet. No maculopapular rash. NEURO: Patient was alert, awake, orientated x3.No facial droop. Gait observed and normal with no ataxia.Speech had regular rate and rhythm. No focal neurological deficits. Result Diagram: 02/12/1790202/12/17902 Results 24 hrs Laboratory Tests Test 02/12/17 09:03 White Blood Count 6.410^3/ul Red Blood Count 3.3210^6/ul Hemoglobin 12.0g/dl Hematocrit 33.9% Mean Corpuscular Volume 102.1fl Mean Corpuscular Hemoglobin 36.1pg Mean Corpuscular Hemoglobin Concent 35.4g/dl Red Cell Distribution Width 13.9% Platelet Count 9810^3/UL Mean Platelet Volume 10.2fl Neutrophils % 92.6% Lymphocytes % 3.0% Monocytes % 3.6% Eosinophils % 0.2% Basophils % 0.3% Nucleated Red Blood Cells % 0.0/100WBC Neutrophils # 5.910^3/ul Lymphocytes # 0.210^3/ul Monocytes # 0.210^3/ul Eosinophils # 0.010^3/ul Basophils # 0.010^3/ul Nucleated Red Blood Cells # 0.010^3/ul Prothrombin Time 21.1Sec Prothrombin Time Ratio 1.6 INR International Normalized Ratio 1.81 Activated Partial Thromboplast Time 39.7Sec Sodium Level 130mmol/L Potassium Level 4.0mmol/L Chloride Level 100mmol/L Carbon Dioxide Level 17mmol/L Anion Gap 17 Blood Urea Nitrogen 13mg/dl Creatinine 0.96mg/dl Glucose Level 196mg/dl Calcium Level 8.0mg/dl Total Bilirubin 3.5mg/dl Direct Bilirubin 0.10mg/dl Indirect Bilirubin 3.4mg/dl Aspartate Amino Transf (AST/SGOT) 72IU/L Alanine Aminotransferase (ALT/SGPT) 67IU/L Alkaline Phosphatase 150IU/L Total Protein 6.6g/dl Albumin 2.5g/dl Globulin 4.10g/dl Albumin/Globulin Ratio 0.60 Current Medications Medications (Trade) Dose Ordered Sig/Pacheco Route PRN Reason Start Time Stop Time Status Last Admin Dose Admin Albumin Human (Albumin Human 25%) 50 ml @ 100 mls/hr ONCE ONCE IV 02/12/17 08:30 02/12/17 08:59 DC 02/12/17 11:03 Morphine Sulfate (morphine) 2 mg ONCE STAT IV 02/12/17 08:53 02/12/17 08:54 DC 02/12/17 09:17 Ondansetron HCl (Zofran Inj) 4 mg ONCE STAT IV 02/12/17 08:53 02/12/17 08:55 DC 02/12/17 09:17 Lidocaine (Xylocaine 1% (Mpf)) 5 ml STK-MED ONCE .ROUTE 02/12/17 10:54 02/12/17 10:55 DC 02/12/17 10:56 Procedures/MDM This patient presented to the emergency department with tense abdominal ascites. There is no reproducible abdominal tenderness or physical exam findings to suggest SBP. IV access was established by nursing staff. Repeat paracentesis was performed after the patient's INR came back and was not coagulopathic. The patient received colloid replacement with IV albumin 25% after 9.4 L of fluid was removed. The patient did receive IV morphine and Zofran for analgesic control as he was complaining of diffuse myalgias. However again the patient denied any abdominal discomfort. The patient had hyponatremia with a serum sodium of 130 but had no physical exam findings to suggest severe hyponatremia. He received a 500 cc bolus of normal saline. The patient was discharged home in fair condition. They were instructed to return to the emergency department at any time if there was any worsening of their condition. The patient stated they would follow up with their PCP in the next 24-48 hours to initiate a suitable medication regimen under the care of their PCP as well as to allow their PCP to monitor any drug reactions. The patient was discharged home with prescriptions after they gave informed consent to the new medication. They were also fully informed by myself on the adverse effects and adverse drug interactions in order to provide adequate safeguards to prevent possible adverse reactions to medications. Departure Diagnosis: Primary Impression: Ascites of liver Additional Impression: Hyponatremia Condition: Fair EMILIA COX Feb 12, 2017 09:20
[2017-02-12 09:31] LABS: INR 1.81; PROTIME 21.1 Sec (12.2-14.2); PT RATIO 1.6
[2017-02-12 09:32] LABS: PARTIAL THROMBOPLASTIN TIME 39.7 Sec (25.0-35.0)
[2017-02-12 09:33] LABS: ALBUMIN 2.5 g/dl (3.3-4.9); ALBUMIN/GLOBULIN RATIO 0.6; BILIRUBIN,DIRECT 0.1 mg/dl (0.00-0.20); BILIRUBIN,INDIRECT 3.4 mg/dl (0-1.1); BILIRUBIN,TOTAL 3.5 mg/dl (0.2-1.3); CREATININE 0.96 mg/dl (0.61-1.24); TOTAL PROTEIN 6.6 g/dl (6.1-8.1)
[2017-02-12] MEDS ORDERED: LIDOCAINE 1% (MPF) 5 ML VIAL ONE (10:54)
[2017-02-12] MEDS ORDERED: SOD CHLORIDE 0.9% 500 ML IV STA (11:17)
[2017-02-12] MEDS ORDERED: MAGN400T27 PO (11:21)
[2017-02-12] MEDS ORDERED: LACT10SO5 PO (11:21)
[2017-02-12] MEDS ORDERED: FURO20TA3 PO (11:22)
[2017-02-12] MEDS ORDERED: ERGO500037 PO (11:23)
[2017-02-12] MEDS ORDERED: PANT40TA4 PO (11:23)
[2017-02-12 11:34] VITALS: BP 111/63; PULSE 98; RESP 18
--- NOTE | 2017-02-12 12:41 | RADRPT ---
PROCEDURE: Ultrasound guided paracentesis CLINICAL INDICATION: Ascites TECHNIQUE: Risks benefits and alternatives of the procedure were explained to the patient. Inform ed written consent was obtained. A time out was performed. Informed written consent was obtained p rior to beginning the procedure. Preliminary wardrobe stylist ultrasound of the abdomen was performed. Fluid was identified in the lower quadrant. The overlying skin of the right lower quadrant was prepped an d draped in the usual sterile fashion. 5 cc of lidocaine was injected locally for pain control. Und er ultrasound guidance, a skinny 5-Gibraltarian Yueh catheter was introduced into the peritoneal cavity. F luid was obtained without difficulty. The fluid was sent the laboratory for further analysis. The patient tolerated procedure well without complication. COMPARISON: None FINDINGS: Approximately 9400 cc of clear yellow fluid was obtained. The fluid was not sent to the laboratory for further evaluation. IMPRESSION: Successful ultrasound-guided paracentesis. RPTAT: QQ Physician Malissa Date Time Electronically viewed and signed by Physician Malissa on 02/12/2017 12:41 MICHELLE/
== END 2017-02-12 11:15 | disposition home or self-care (01) ==
LOC: E/R 07:56 → MERGE 07:56 → E/R 11:15
DX: R18.8 Other ascites (principal); E87.1 Hypo-osmolality and hyponatremia
CPT/HCPCS: 36415; 80053; 85025; 85610; 85730; 96374; 96375; J2270; J2405; J7040; P9047; Z7502; Z7610

== ENCOUNTER 2017-02-20 07:50 | Emergency (ER) | payer OTHER ==
[~2017-02-20] VITALS: Ht 167.6 cm; Wt 93.5 kg
[~2017-02-20 07:50] MED LIST changes: +ERGO500037 PO; +MAGN400T27 PO
[2017-02-20 07:54] VITALS: Ht 167.6 cm; Wt 93.5 kg
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
[2017-02-20 08:59] LABS: ABNORMAL IP MESSAGE 1; BASOPHILS % 0.5 % (0.0-2.0); EOSINOPHILS # 0.1 10^3/ul (0.0-0.5); EOSINOPHILS % 2.5 % (0.0-7.0); HEMATOCRIT 29.6 % (42.0-52.0); HEMOGLOBIN 10.3 g/dl (14.0-18.0); LYMPHOCYTES # 0.4 10^3/ul (0.8-2.9); LYMPHOCYTES % 11.5 % (15.0-51.0); MEAN CORPUSCULAR HGB CONC 34.8 g/dl (32.0-37.0); MEAN CORPUSCULAR VOLUME 100.7 fl (82.0-101.0); MEAN PLATELET VOLUME 10.2 fl (7.4-10.4); MONOCYTE # 0.5 10^3/ul (0.3-0.9); MONOCYTES % 12.9 % (0.0-11.0); NEUTROPHIL # 2.6 10^3/ul (1.6-7.5); NEUTROPHILS % 71.5 % (39.0-77.0); PLATELET COUNT 79 10^3/UL (140-415); POSITIVE DIFF @See below; RED BLOOD COUNT 2.94 10^6/ul (4.70-6.10); WHITE BLOOD COUNT 3.6 10^3/ul (4.8-10.8)
[2017-02-20 09:34] LABS: INR 1.98; PROTIME 22.7 Sec (12.2-14.2); PT RATIO 1.8
[2017-02-20 09:35] LABS: PARTIAL THROMBOPLASTIN TIME 42.8 Sec (25.0-35.0)
[2017-02-20 09:39] LABS: ALBUMIN 2.4 g/dl (3.3-4.9); ALBUMIN/GLOBULIN RATIO 0.61; BILIRUBIN,DIRECT 0.3 mg/dl (0.00-0.20); BILIRUBIN,INDIRECT 2.2 mg/dl (0-1.1); BILIRUBIN,TOTAL 2.5 mg/dl (0.2-1.3); CALCIUM 7.9 mg/dl (8.4-10.2); CREATININE 0.84 mg/dl (0.61-1.24); POTASSIUM 4.2 mmol/L (3.5-5.1); TOTAL PROTEIN 6.3 g/dl (6.1-8.1)
[2017-02-20] MEDS ORDERED: LIDOCAINE 1% (MPF) 5 ML VIAL ONE (11:05)
--- NOTE | 2017-02-20 11:38 | RADRPT ---
PROCEDURE: US guided paracentesis CLINICAL INDICATION: Ascites TECHNIQUE: Multiple sonographic images were obtained through the patient's abdomen. A site in the patient's RIGHT lower abdomen was selected and marked. The area was prepped and draped in the usual sterile fashion. 1% lidocaine was utilized. A 19-gauge Yueh needle was advanced into the peritonea l space and the introducer was connected to a vacuum drainage bottle. A total of 10,000 cc of clear yellow fluid were drained at the end of the procedure. The patient tolerated the procedure well. COMPARISON: None FINDINGS: Ascites. RPTAT: AA IMPRESSION: Successful ultrasound-guided paracentesis. Physician David Date Time Electronically viewed and signed by Physician David on 02/20/2017 11:38 /
[2017-02-20] MEDS: ALBUMIN HUMAN 25% 100 ML IV SCH ×3 (12:13→14:02)
[2017-02-20 15:31] VITALS: BP 99/66; PULSE 82; RESP 18; TEMP 98.1
== END 2017-02-20 15:37 | disposition home or self-care (01) ==
LOC: E/R 07:50
DX: K70.31 Alcoholic cirrhosis of liver with ascites (principal); E88.09 Other disorders of plasma-protein metabolism, not elsewhere classified
CPT/HCPCS: 36415; 80053; 85025; 85610; 85730; 96374; 96376; P9047; Z7502; Z7610

== ENCOUNTER 2017-02-24 07:45 | Emergency (ER) | payer OTHER ==
[~2017-02-24] VITALS: Wt 93.0 kg
[2017-02-24] MEDS ORDERED: LIDOCAINE 1% (MPF) 5 ML VIAL ONE (09:30)
--- NOTE | 2017-02-24 09:46 | RADRPT ---
PROCEDURE: Ultrasound guided paracentesis CLINICAL INDICATION: Ascites TECHNIQUE: The risks benefits and alternatives of the procedure were explained to the patient. In formed written consent was obtained. A time out was performed. The patient understood the risks be nefits and alternatives and wished to proceed with the procedure. COMPARISON: Paracentesis, 02/20/2017 FINDINGS: A time out was performed. The overlying skin of the right lower quadrant of the abdomen was prepped and draped in the usual sterile fashion. Approximately 10 cc of lidocaine was injected locally for pain control. Utilizing ultrasound guidance, a 6-Trinidadian paracentesis catheter was placed into the peritoneal cavity without difficulty. The patient tolerated the procedure well without complication . Approximately 10,000 cc of clear yellow fluid was obtained. The fluid was not sent to the lab fo r further analysis. IMPRESSION: 1. Successful ultrasound-guided paracentesis. RPTAT: QQ .Mark Verde MD, MD Date Time Electronically viewed and signed by .Mark Verde MD, on 02/24/2017 09:46 .R/
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
== END 2017-02-24 11:36 | disposition home or self-care (01) ==
LOC: E/R 07:45
DX: R18.8 Other ascites (principal)
CPT/HCPCS: Z7502; Z7610

== ENCOUNTER 2017-02-26 08:21 | Emergency (ER) | payer OTHER ==
[~2017-02-26] VITALS: Ht 172.7 cm; Wt 92.0 kg
[2017-02-26 08:24] VITALS: Ht 172.7 cm; Wt 92.0 kg
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
[2017-02-26 10:22] LABS: ABNORMAL IP MESSAGE 1; BASOPHILS % 0.5 % (0.0-2.0); EOSINOPHILS # 0.1 10^3/ul (0.0-0.5); EOSINOPHILS % 1.8 % (0.0-7.0); HEMOGLOBIN 11.2 g/dl (14.0-18.0); LYMPHOCYTES # 0.5 10^3/ul (0.8-2.9); LYMPHOCYTES % 8.7 % (15.0-51.0); MEAN CORPUSCULAR HEMOGLOBIN 34.9 pg (29.0-33.0); MEAN CORPUSCULAR VOLUME 99.7 fl (82.0-101.0); MEAN PLATELET VOLUME 10.4 fl (7.4-10.4); MONOCYTE # 0.5 10^3/ul (0.3-0.9); MONOCYTES % 9.2 % (0.0-11.0); NEUTROPHILS % 79.4 % (39.0-77.0); POSITIVE DIFF @See below; RED BLOOD COUNT 3.21 10^6/ul (4.70-6.10); RED CELL DISTRIBUTION WIDTH 14.1 % (11.5-14.5); WHITE BLOOD COUNT 5.6 10^3/ul (4.8-10.8)
[2017-02-26 10:27] LABS: PLATELET COUNT 89 10^3/UL (140-415)
[2017-02-26 10:39] LABS: ALBUMIN/GLOBULIN RATIO 0.78; BILIRUBIN,DIRECT 0.6 mg/dl (0.00-0.20); BILIRUBIN,INDIRECT 2.9 mg/dl (0-1.1); BILIRUBIN,TOTAL 3.5 mg/dl (0.2-1.3); CALCIUM 8.2 mg/dl (8.4-10.2); CREATININE 0.79 mg/dl (0.61-1.24); POTASSIUM 4.5 mmol/L (3.5-5.1); TOTAL PROTEIN 6.8 g/dl (6.1-8.1)
[2017-02-26 10:53] LABS: INR 2.06; PARTIAL THROMBOPLASTIN TIME 42.9 Sec (25.0-35.0); PROTIME 23.4 Sec (12.2-14.2); PT RATIO 1.8
[2017-02-26] MEDS ORDERED: RIFA550T4 PO (11:46)
[2017-02-26] MEDS ORDERED: LIDOCAINE 1% (MPF) 5 ML VIAL ONE (12:54)
[2017-02-26] MEDS: ALBUMIN HUMAN 25% 100 ML IV SCH ×3 (14:04→15:55)
--- NOTE | 2017-02-26 14:49 | RADRPT ---
PROCEDURE: Ultrasound guided paracentesis CLINICAL INDICATION: Ascites TECHNIQUE: Risks benefits and alternatives of the procedure were explained to the patient. Inform ed written consent was obtained. A time out was performed. Informed written consent was obtained p rior to beginning the procedure. Preliminary international relations professor ultrasound of the abdomen was performed. Fluid was identified in the lower quadrant. The overlying skin of the right lower quadrant was prepped an d draped in the usual sterile fashion. 5 cc of lidocaine was injected locally for pain control. Und er ultrasound guidance, a skinny 5-Palestinian Yueh catheter was introduced into the peritoneal cavity. F luid was obtained without difficulty. The fluid was sent the laboratory for further analysis. The patient tolerated procedure well without complication. COMPARISON: None FINDINGS: Approximately 10,000 cc of clear yellow fluid was obtained. The fluid was not sent to the laborator y for further evaluation. IMPRESSION: Successful ultrasound-guided therapeutic paracentesis. RPTAT: QQ Physician Malissa Date Time Electronically viewed and signed by Physician Malissa on 02/26/2017 14:49 MICHELLE/
[2017-02-26 16:58] VITALS: BP 94/59; PULSE 95; RESP 20; TEMP 98.9
== END 2017-02-26 16:59 | disposition home or self-care (01) ==
LOC: E/R 08:21
DX: K70.31 Alcoholic cirrhosis of liver with ascites (principal); R40.2252 Coma scale, best verbal response, oriented, at arrival to emergency department; R40.2142 Coma scale, eyes open, spontaneous, at arrival to emergency department; R40.2362 Coma scale, best motor response, obeys commands, at arrival to emergency department; Z87.891 Personal history of nicotine dependence
CPT/HCPCS: 36415; 80053; 85025; 85610; 85730; 96374; 96376; P9047; Z7502; Z7610

== ENCOUNTER 2017-03-11 11:41 | Emergency (ER) | payer OTHER ==
[~2017-03-11] VITALS: Ht 167.6 cm; Wt 86.0 kg
[~2017-03-11 11:41] MED LIST changes: -CHOL100062 PO; -LACT10SO5 PO; -MAGN400T28 PO; +RIFA550T4 PO
[2017-03-11 12:12] VITALS: Ht 167.6 cm; Wt 86.0 kg
[2017-03-11 13:13] LABS: ABNORMAL IP MESSAGE 1; HEMATOCRIT 23.1 % (42.0-52.0); HEMOGLOBIN 7.8 g/dl (14.0-18.0); MEAN CORPUSCULAR HEMOGLOBIN 35.3 pg (29.0-33.0); MEAN CORPUSCULAR HGB CONC 33.8 g/dl (32.0-37.0); MEAN CORPUSCULAR VOLUME 104.5 fl (82.0-101.0); MEAN PLATELET VOLUME 10.7 fl (7.4-10.4); PLATELET COUNT 50 10^3/UL (140-415); POSITIVE DIFF @See below; RED BLOOD COUNT 2.21 10^6/ul (4.70-6.10); WHITE BLOOD COUNT 3.4 10^3/ul (4.8-10.8)
[2017-03-11 13:27] LABS: INR 2.99; PROTIME 31.5 Sec (12.2-14.2); PT RATIO 2.5
[2017-03-11 13:35] LABS: ALANINE AMINOTRANSFERASE 26 IU/L (13-69); ALBUMIN 3.6 g/dl (3.3-4.9); ALBUMIN/GLOBULIN RATIO 1.24; ALKALINE PHOSPHATASE 82 IU/L (42-121); ANION GAP 15 (8-16); ASPARTATE AMINO TRANSFERASE 37 IU/L (15-46); BILIRUBIN,INDIRECT 2.7 mg/dl (0-1.1); BILIRUBIN,TOTAL 2.7 mg/dl (0.2-1.3); BLOOD UREA NITROGEN 22 mg/dl (7-20); CALCIUM 8.6 mg/dl (8.4-10.2); CARBON DIOXIDE 21 mmol/L (21-31); CHLORIDE 107 mmol/L (97-110); CREATININE 1.87 mg/dl (0.61-1.24); GLUCOSE 75 mg/dl (70-220); POTASSIUM 4.5 mmol/L (3.5-5.1); SODIUM 138 mmol/L (135-144); TOTAL PROTEIN 6.5 g/dl (6.1-8.1)
[2017-03-11] MEDS ORDERED: SOD CHLORIDE 0.9% 500 ML IV STA (13:54)
[2017-03-11 13:59] LABS: TROPONIN-I < 0.012 ng/ml (0.00-0.12)
[2017-03-11 14:26] LABS: ANISOCYTOSIS 1+ (0-0); BASOPHILS % (M) 2 % (0-2); EOSINOPHILS % (M) 5 % (0-7); GIANT THROMBO% (M) 3 % (0-0); MONOCYTES % (M) 8 % (0-11); MYELOCYTES % (M) 3 % (0-0); PLATELET ESTIMATE DECREASED; POLYCHROMASIA 2+ (0-0); REACTIVE LYMPHOCYTES% (M) 1 % (0-0)
[2017-03-11] MEDS ORDERED: SOD CHLORIDE 0.9% 250 ML IV ONE (14:27)
[2017-03-11] MEDS ORDERED: LIDOCAINE 1% (MPF) 5 ML VIAL ONE (16:59)
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
--- NOTE | 2017-03-11 17:31 | RADRPT ---
PROCEDURE: Ultrasound guided paracentesis CLINICAL INDICATION: Ascites TECHNIQUE: Risks benefits and alternatives of the procedure were explained to the patient. Inform ed written consent was obtained. Preliminary outside plant supervisor ultrasound of the abdomen was performed. Fluid was identified in the left lower quadrant. The overlying skin of the right lower quadrant was prepp ed and draped in the usual sterile fashion. Under ultrasound guidance, a skin a 5-Serbian Yueh shelia ter was introduced into the right lower quadrant peritoneal cavity. 4800 cc of clear yellow fluid wa s obtained without difficulty. The fluid was not sent the laboratory for further analysis. The pat ient tolerated procedure well without complication. COMPARISON: 02/26/2017 FINDINGS: Approximately 4800 cc of clear yellow fluid was obtained. The fluid was not sent to the laboratory for further evaluation. IMPRESSION: 1. Successful ultrasound-guided paracentesis. RPTAT: QQ .Marty Robb MD, Date Time Electronically viewed and signed by .Marty Robb MD, MD on 03/11/2017 17:31 .d/
[2017-03-11 17:54] VITALS: BP 92/58; PULSE 67; RESP 19; TEMP 98.7
== END 2017-03-11 17:56 | disposition home or self-care (01) ==
LOC: E/R 11:41
DX: K70.31 Alcoholic cirrhosis of liver with ascites (principal); D53.9 Nutritional anemia, unspecified
CPT/HCPCS: 36430; 80053; 83690; 84484; 85025; 85610; 85730; 86850; 86900; 86901; J7040; P9059; Z7502; Z7610

== ENCOUNTER 2017-03-17 08:02 | Emergency (ER) | payer OTHER ==
[~2017-03-17] VITALS: Ht 175.3 cm; Wt 84.0 kg
[2017-03-17 08:06] VITALS: Ht 175.3 cm; Wt 84.0 kg
[2017-03-17 11:36] LABS: ABNORMAL IP MESSAGE 1; BASOPHILS % 0.5 % (0.0-2.0); EOSINOPHILS # 0.1 10^3/ul (0.0-0.5); EOSINOPHILS % 5.2 % (0.0-7.0); HEMATOCRIT 26.1 % (42.0-52.0); HEMOGLOBIN 8.5 g/dl (14.0-18.0); LYMPHOCYTES # 0.3 10^3/ul (0.8-2.9); LYMPHOCYTES % 15.5 % (15.0-51.0); MEAN CORPUSCULAR HEMOGLOBIN 33.5 pg (29.0-33.0); MEAN CORPUSCULAR HGB CONC 32.6 g/dl (32.0-37.0); MEAN CORPUSCULAR VOLUME 102.8 fl (82.0-101.0); MEAN PLATELET VOLUME 11.7 fl (7.4-10.4); MONOCYTE # 0.3 10^3/ul (0.3-0.9); MONOCYTES % 13.1 % (0.0-11.0); NEUTROPHILS % 65.2 % (39.0-77.0); POSITIVE DIFF @See below; RED BLOOD COUNT 2.54 10^6/ul (4.70-6.10); WHITE BLOOD COUNT 2.1 10^3/ul (4.8-10.8)
[2017-03-17 11:40] LABS: PLATELET COUNT 50 10^3/UL (140-415)
[2017-03-17 11:54] LABS: INR 2.06; PARTIAL THROMBOPLASTIN TIME 43.9 Sec (25.0-35.0); PROTIME 23.4 Sec (12.2-14.2); PT RATIO 1.8
[2017-03-17 11:56] LABS: ALBUMIN 3.4 g/dl (3.3-4.9); ALBUMIN/GLOBULIN RATIO 1.03; BILIRUBIN,INDIRECT 2.1 mg/dl (0-1.1); BILIRUBIN,TOTAL 2.1 mg/dl (0.2-1.3); CALCIUM 8.7 mg/dl (8.4-10.2); CREATININE 1.2 mg/dl (0.61-1.24); POTASSIUM 4.6 mmol/L (3.5-5.1); TOTAL PROTEIN 6.7 g/dl (6.1-8.1)
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
[2017-03-17] MEDS ORDERED: ONDANSETRON 4 MG INJ IV PRN (15:30)
[2017-03-17] MEDS ORDERED: ACETAMINOPHEN 325 MG TAB PO PRN (15:30)
[2017-03-17 23:47] VITALS: BP 97/55; PULSE 73; RESP 18
--- NOTE | 2017-03-18 00:09 | EN ---
Date/Time of Note Date/Time of Note DATE: 03/18/17 TIME: 00:06 ER Progress Note I was asked by Dr. Reeder to perform a paracentesis on this patient as that was the only reason that he had come to the emergency room. He stated that he would be able to handle the discharge if I performed a paracentesis. Perform abdominal ultrasound the patient did have significant ascites. Apparently interventional radiology had for refused to perform it because of the patient's coagulation studies. This is irrelevant as shown that coagulations is elevated from liver failure did not respond to FFP anyway and so there is no reason to delay the procedure. Paracentesis note: Ultrasound guidance was used to locate a pocket of fluid in the right lower abdomen. Sterile technique was used with chlorhexidine wipe down mask Gloves draped. Patient was anesthetized with 4 cc of lidocaine without epinephrine. Thoracentesis kit was used to introduce a flexible catheter over a wire through and 6 1 L vacuum bottles of peritoneal fluid were obtained. Patient was feeling much better tolerated the procedure with no complications and his abdominal pain has been resolved. Placed a pressure dressing. EARL MENDOZA DO Mar 18, 2017 00:09
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
[2017-03-18] MEDS ORDERED: NACL 0.9% 3 ML SYG IV SCH (00:30)
[2017-03-18] MEDS ORDERED: FAMOTIDINE 20 MG TAB PO SCH (00:30)
--- NOTE | 2017-03-18 00:30 | DS ---
Date/Time of Note Date/Time of Note DATE: 03/18/17 TIME: 00:30 Discharge Summary Admission/Discharge Info Admit Date/Time 03/17/1017 Discharge Date/Time Discharge Diagnosis 1. Abdominal ascites 2. alcohol liver cirrhosis Patient Condition: Stable Procedures ED physician paracentesis note: Ultrasound guidance was used to locate a pocket of fluid in the right lower abdomen. Sterile technique was used with chlorhexidine wipe down mask Gloves draped. Patient was anesthetized with 4 cc of lidocaine without epinephrine. Thoracentesis kit was used to introduce a flexible catheter over a wire through and 6 1 L vacuum bottles of peritoneal fluid were obtained. Patient was feeling much better tolerated the procedure with no complications and his abdominal pain has been resolved. Placed a pressure dressing. Hx of Present Illness CC: abdominal fluid This is a 57-year-old male with a past medical history of alcohol cirrhosis, chronic ascites requiring frequent taps, previous episodes of hepatic encephalopathy on lactulose who is presenting with a desire for paracentesis. He reports having paracenteses approximately once a week. He is currently being worked up for a liver transplant at [facility]. He felt that the fluid was becoming too much for him, so he came to the emergency department for removal. The patient denies fever or chills. He denies any nausea or vomiting. He denies any chest pain. He does endorse mild shortness of breath when his abdomen becomes distended with fluid. He does not endorse any abdominal pain or tenderness to palpation, but he is very uncomfortable secondary to the increasing fluid. The patient is started to develop problems with his kidneys, so he was taken off Lasix. Since this happened, he feels that he is required more frequent paracenteses. allergies: nkda meds: see mar Hospital Course This is a patient with history of alcohol liver cirrhosis and recurrent ascites , who was admitted for recurrent ascities. Initially patient was to have paracentesis performed by interventional radiology however apparently radiology refused perform it because of the patient's coagulation studies. However those coagulation studies have been chronic for the patient and he did not respond FFP as per the ED physician. The ER physician was then requested by medicine to have a paracentesis performed. The ED physician performed the paracentesis successfully please see paracentesis note in the procedure section. Patient tolerated the paracentesis well and after observation he was deemed stable for discharge. Patient was advised to return to the ED if he had any fevers, abdominal pain, bleeding, or any other concerning symptoms. Home Meds Reported Medications Rifaximin* (Xifaxan*) 550 Mg Tablet, 550 MG PO BID, TAB 02/26/17 Ergocalciferol (Vitamin D2) (VITAMIN D2) 50,000 Unit Capsule, 39566 UNIT PO Q7D , CAP 02/12/17 Pantoprazole* (Pantoprazole*) 40 Mg Tablet.dr, 40 MG PO AC BREAKFAST, TAB 02/12/17 Furosemide* (Furosemide*) 20 Mg Tablet, 40 MG PO BID, #60 TAB 02/12/17 Magnesium Oxide* (Mag-Oxide*) 400 Mg Tablet, 400 MG PO DAILY, TAB 02/12/17 Spironolactone* (Aldactone*) 50 Mg Tablet, 50 MG PO DAILY, #30 TAB 01/18/17 Follow-up Plan Follow-up with primary care doctor within 1 week Primary Care Provider Care Physician No Primary Time spent on discharge: > 30 minutes Pending Labs Laboratory Tests Test 03/17/17 11:01 White Blood Count 2.110^3/ul (4.8-10.8) Red Blood Count 2.5410^6/ul (4.70-6.10) Hemoglobin 8.5g/dl (14.0-18.0) Hematocrit 26.1% (42.0-52.0) Mean Corpuscular Volume 102.8fl (82.0-101.0) Mean Corpuscular Hemoglobin 33.5pg (29.0-33.0) Mean Corpuscular Hemoglobin Concent 32.6g/dl (32.0-37.0) Red Cell Distribution Width 16.0% (11.5-14.5) Platelet Count 5010^3/UL (140-415) Mean Platelet Volume 11.7fl (7.4-10.4) Neutrophils % 65.2% (39.0-77.0) Lymphocytes % 15.5% (15.0-51.0) Monocytes % 13.1% (0.0-11.0) Eosinophils % 5.2% (0.0-7.0) Basophils % 0.5% (0.0-2.0) Nucleated Red Blood Cells % 0.0/100WBC (0.0-0.0) Neutrophils # (Manual) 1.410^3/ul (1.7-7.5) Lymphocytes # 0.310^3/ul (0.8-2.9) Monocytes # 0.310^3/ul (0.3-0.9) Eosinophils # 0.110^3/ul (0.0-0.5) Basophils # 0.010^3/ul (0.0-0.1) Nucleated Red Blood Cells # 0.010^3/ul (0.0-0.0) Prothrombin Time 23.4Sec (12.2-14.2) Prothrombin Time Ratio 1.8 INR International Normalized Ratio 2.06 Activated Partial Thromboplast Time 43.9Sec (25.0-35.0) Sodium Level 136mmol/L (135-144) Potassium Level 4.6mmol/L (3.5-5.1) Chloride Level 105mmol/L (97-110) Carbon Dioxide Level 23mmol/L (21-31) Anion Gap 13 (8-16) Blood Urea Nitrogen 22mg/dl (7-20) Creatinine 1.20mg/dl (0.61-1.24) Glucose Level 134mg/dl (70-220) Calcium Level 8.7mg/dl (8.4-10.2) Total Bilirubin 2.1mg/dl (0.2-1.3) Direct Bilirubin 0.00mg/dl (0.00-0.20) Indirect Bilirubin 2.1mg/dl (0-1.1) Aspartate Amino Transf (AST/SGOT) 49IU/L (15-46) Alanine Aminotransferase (ALT/SGPT) 33IU/L (13-69) Alkaline Phosphatase 132IU/L (42-121) Total Protein 6.7g/dl (6.1-8.1) Albumin 3.4g/dl (3.3-4.9) Globulin 3.30g/dl (1.3-3.2) Albumin/Globulin Ratio 1.03 Lipase 365U/L (23-300) STEPHANE FARRELL Mar 18, 2017 00:30 (6.1-8.1) Albumin 3.4g/dl (3.3-4.9) Globulin 3.30g/dl (1.3-3.2) Albumin/Globulin Ratio 1.03 Lipase 365U/L (23-300) STEPHANE FARRELL Mar 18, 2017 00:30
--- NOTE | 2017-03-18 01:26 | PDOCDIS ---
Discharge Instructions DIAGNOSIS Discharge Diagnosis Recurrent ascites. Alcoholic liver cirrhosis. CONDITION Patient Condition: Stable HOME CARE INSTRUCTIONS: Diet Instructions: 2gm Na ACTIVITY: Activity Restrictions: Slowly Increase Activity Bathing Restrictions: Shower FOLLOW UP/APPOINTMENTS Follow-up Plan Follow up with PCP within 1 week. SCHOOL/WORK RELEASE May return to School/Work with: No Restrictions STEPHANE FARRELL Mar 18, 2017 01:26
== END 2017-03-18 01:37 | disposition home or self-care (01) ==
LOC: E/R 08:02
DX: K70.31 Alcoholic cirrhosis of liver with ascites (principal); D69.6 Thrombocytopenia, unspecified; R79.1 Abnormal coagulation profile; Z87.891 Personal history of nicotine dependence
CPT/HCPCS: 36415; 80053; 83690; 85025; 85610; 85730; Z7502; 99283

== ENCOUNTER 2017-03-22 08:00 | Emergency (ER) | payer OTHER ==
[~2017-03-22] VITALS: Ht 182.9 cm; Wt 83.5 kg
[2017-03-22 08:02] VITALS: Ht 182.9 cm; Wt 83.5 kg
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
== END 2017-03-22 10:14 | disposition home or self-care (01) ==
LOC: E/R 08:00
DX: K74.60 Unspecified cirrhosis of liver (principal)
CPT/HCPCS: 99282

== ENCOUNTER 2017-04-07 13:00 | Emergency (ER) | payer OTHER ==
[~2017-04-07] VITALS: Ht 177.8 cm; Wt 92.5 kg
[2017-04-07 13:05] VITALS: Ht 177.8 cm; Wt 92.5 kg
[2017-04-07 15:24] LABS: ABNORMAL IP MESSAGE 1; HEMATOCRIT 28.2 % (42.0-52.0); HEMOGLOBIN 9.6 g/dl (14.0-18.0); MEAN CORPUSCULAR HEMOGLOBIN 35.2 pg (29.0-33.0); MEAN CORPUSCULAR VOLUME 103.3 fl (82.0-101.0); MEAN PLATELET VOLUME 12.5 fl (7.4-10.4); PLATELET COUNT 59 10^3/UL (140-415); POSITIVE DIFF @See below; RED BLOOD COUNT 2.73 10^6/ul (4.70-6.10); RED CELL DISTRIBUTION WIDTH 15.9 % (11.5-14.5); WHITE BLOOD COUNT 2.9 10^3/ul (4.8-10.8)
[2017-04-07 15:38] LABS: INR 1.98; PROTIME 22.7 Sec (12.2-14.2); PT RATIO 1.8
[2017-04-07 15:42] LABS: ALANINE AMINOTRANSFERASE 49 IU/L (13-69); ALBUMIN 2.8 g/dl (3.3-4.9); ALBUMIN/GLOBULIN RATIO 0.73; ALKALINE PHOSPHATASE 186 IU/L (42-121); ANION GAP 10 (8-16); ASPARTATE AMINO TRANSFERASE 67 IU/L (15-46); BILIRUBIN,INDIRECT 2.3 mg/dl (0-1.1); BILIRUBIN,TOTAL 2.3 mg/dl (0.2-1.3); BLOOD UREA NITROGEN 13 mg/dl (7-20); CALCIUM 8.2 mg/dl (8.4-10.2); CARBON DIOXIDE 23 mmol/L (21-31); CHLORIDE 108 mmol/L (97-110); CREATININE 0.76 mg/dl (0.61-1.24); GLUCOSE 117 mg/dl (70-220); SODIUM 137 mmol/L (135-144); TOTAL PROTEIN 6.6 g/dl (6.1-8.1)
[2017-04-07 16:01] LABS: ETHANOL < 10.0 mg/dl; TROPONIN-I < 0.012 ng/ml (0.00-0.12)
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
[2017-04-07 16:30] LABS: EOSINOPHILS % (M) 4 % (0-7); MONOCYTES % (M) 10 % (0-11); PLATELET ESTIMATE DECREASED
[2017-04-07] MEDS ORDERED: LACTULOSE 30ML CUP PO ONE (16:30)
[2017-04-07] MEDS ORDERED: LIDOCAINE 1% (MPF) 5 ML VIAL ONE (16:57)
[2017-04-07] MEDS ORDERED: LACT20SO2 PO (17:26)
[2017-04-07 17:51] VITALS: BP 107/62; PULSE 83; RESP 18; TEMP 98.1
--- NOTE | 2017-04-07 18:24 | RADRPT ---
PROCEDURE: Ultrasound guided paracentesis CLINICAL INDICATION: Ascites. Sclerosis. COMPARISON: Paracentesis 03/11/2017 PRE-PROCEDURE CONSIDERATIONS: Pre-procedure labs including coagulation parameters were within accept able limits. Pre-procedure imaging was available and reviewed. CONSENT: Informed consent was obtained from the patient by Dr. Magdaleno Tobar. The indications for the procedure, alternative options, attendant risks, and potential complications were [facility] and all questions were answered. A universal time-out was performed to verify the correct patient , procedure, and position. Allergies and other precautions were reviewed. OPERATING PHYSICIAN: Dr. Magdaleno Tobar who was present for the entirety of the procedure. DEVICES: 19-gauge needle MEDICATIONS ADMINSTERED: 1% Lidocaine 8 mL, subcutaneous TECHNIQUE: The abdomen was scanned and a site of entry was selected and marked. Hand hygiene was pe rformed. Sterile gloves and mask were donned. Cutaneous anti-sepsis was obtained with 1% Chlorhexidi ne. The right lower quadrant was prepped and draped in the usual sterile fashion. Local anesthetic w as provided. A needle was introduced into the peritoneal space and was connected to a vacuum drainag e bottle via sterile tubing. A total of 9300 mL clear yellow fluid was drained. The needle was remov ed, hemostasis was achieved, and a sterile dressing was placed. COMPLICATIONS: No immediate complications at the conclusion of the procedure. FINDINGS: Moderate amount of abdominal ascites. IMPRESSION: 1. Technically successful ultrasound guided paracentesis. 2. 9300 mL clear yellow fluid was drained. 3. A sample was not sent to the lab for analysis. RPTAT: [facility] Physician Terri Date Time Electronically viewed and signed by Physician Terri on 04/07/2017 18:23 LG/
== END 2017-04-07 17:53 | disposition home or self-care (01) ==
LOC: E/R 13:00
DX: K70.31 Alcoholic cirrhosis of liver with ascites (principal); E72.29 Other disorders of urea cycle metabolism; D61.818 Other pancytopenia; I50.9 Heart failure, unspecified; R06.02 Shortness of breath
CPT/HCPCS: 36415; 80053; 80306; 82140; 83690; 84484; 85025; 85610; 93005; Z7502; Z7610

== ENCOUNTER 2017-04-17 08:44 | Emergency (ER) | payer OTHER ==
[~2017-04-17] VITALS: Ht 167.6 cm; Wt 89.0 kg
[~2017-04-17 08:44] MED LIST changes: +LACT20SO2 PO
[2017-04-17 08:48] VITALS: Ht 167.6 cm; Wt 89.0 kg
[2017-04-17 10:00] VITALS: TEMP 98.1
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
[2017-04-17 12:16] VITALS: BP 101/81; PULSE 89; RESP 18
== END 2017-04-17 12:24 | disposition home or self-care (01) ==
LOC: E/R 08:44
DX: K70.31 Alcoholic cirrhosis of liver with ascites (principal)
CPT/HCPCS: 49083; Z7502

== ENCOUNTER 2017-04-26 08:31 | Emergency (ER) | payer OTHER ==
[~2017-04-26] VITALS: Wt 89.0 kg
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
[2017-04-26 11:19] LABS: CALCIUM 8.4 mg/dl (8.4-10.2); CREATININE 0.84 mg/dl (0.61-1.24); POTASSIUM 4.4 mmol/L (3.5-5.1)
[2017-04-26 13:50] VITALS: BP 111/67; PULSE 90; RESP 16; TEMP 98.2
== END 2017-04-26 14:04 | disposition home or self-care (01) ==
LOC: E/R 08:31
DX: K70.31 Alcoholic cirrhosis of liver with ascites (principal)
CPT/HCPCS: 49083; 80048; Z7502

== ENCOUNTER 2017-04-27 10:19 | Emergency (ER) | payer OTHER ==
[~2017-04-27] VITALS: Ht 167.6 cm; Wt 84.0 kg
[2017-04-27 10:39] VITALS: Ht 167.6 cm; Wt 84.0 kg
[2017-04-27 12:57] VITALS: BP 101/66; PULSE 87; RESP 18
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
== END 2017-04-27 12:58 | disposition home or self-care (01) ==
LOC: FTE 10:19
DX: K70.31 Alcoholic cirrhosis of liver with ascites (principal)
CPT/HCPCS: 99282

== ENCOUNTER 2017-04-28 18:36 | Emergency (ER) | payer OTHER ==
[~2017-04-28] VITALS: Ht 172.7 cm; Wt 84.5 kg
[2017-04-28 18:44] VITALS: Ht 172.7 cm; Wt 84.5 kg
[2017-04-28] MEDS ORDERED: LIDOCAINE 1% (MDV) 20 ML INJ SC ONE (20:00)
--- NOTE | 2017-04-30 10:44 | ERD ---
ER Documentation Chief Complaint Chief Complaint paracentesis site is leaking needs to change dressing and a new bag, HPI Patient is a 57-year-old male presenting to the emergency department planing that his paracentesis site is leaking. He did have paracentesis approximately 2 days ago and has had leaking from the site ever since then. He was seen here yesterday with the same complaint and a pressure dressing was applied, but has continued to have leakage. He denies fevers, chills, redness, bleeding from the site, or other symptoms at this time. ROS All systems reviewed and are negative except as per history of present illness. Medications Home Meds Active Scripts Lactulose* (Lactulose*) 20 Gm/30 Ml Solution, 20 GM PO BID, #200 ML Prov:BROOKLYN PANTOJA MD 04/07/17 Reported Medications Rifaximin* (Xifaxan*) 550 Mg Tablet, 550 MG PO BID, TAB 02/26/17 Ergocalciferol (Vitamin D2) (VITAMIN D2) 50,000 Unit Capsule, 32950 UNIT PO Q7D , CAP 02/12/17 Pantoprazole* (Pantoprazole*) 40 Mg Tablet.dr, 40 MG PO AC BREAKFAST, TAB 02/12/17 Furosemide* (Furosemide*) 20 Mg Tablet, 40 MG PO BID, #60 TAB 02/12/17 Magnesium Oxide* (Mag-Oxide*) 400 Mg Tablet, 400 MG PO DAILY, TAB 02/12/17 Spironolactone* (Aldactone*) 50 Mg Tablet, 50 MG PO DAILY, #30 TAB 01/18/17 Allergies Allergies: Coded Allergies: No Known Allergy (Unverified , 04/26/17) PMhx/Soc Anesthesia Reaction: No Hx Neurological Disorder: No Hx Respiratory Disorders: No Hx Cardiac Disorders: No Hx Psychiatric Problems: No Hx Miscellaneous Medical Probl: Yes (cirrhosis) Hx Alcohol Use: Yes Hx Substance Use: No Hx Tobacco Use: No Smoking Status: Never smoker Physical Exam Vitals Vital Signs Date Time Temp Pulse Resp B/P Pulse Ox O2 Delivery O2 Flow Rate FiO2 04/28/17 18:44 98.8 110 20 122/71 98 Physical Exam Const: Nontoxic, well-appearing male in no acute distress. Head: Atraumatic Eyes: Normal Conjunctiva ENT: Normal External Ears, Nose and Mouth. Abd: Soft, non tender, distended, leakage from the pressure dressing noted over the right mid abdomen, no bleeding noted. Normal bowel sounds Skin: No petechiae or rashes Ext: No cyanosis, or edema Neur: Awake and alert Psych: Normal Mood and Affect Results 24 hrs Current Medications Medications (Trade) Dose Ordered Sig/Pacheco Route PRN Reason Start Time Stop Time Status Last Admin Dose Admin Lidocaine (Xylocaine 1% (Mdv) 20 ml) 20 ml ONCE ONCE SC 04/28/17 20:00 04/28/17 20:01 DC Procedures/MDM 57-year-old male presents to the emergency department with complaints of leakage from his paracentesis site. I spoke with attending physician, Dr. Luis Enrique Fowler who also evaluated the patient and recommended a suture to close the paracentesis site and prevent further leakage. Procedure note: Paracentesis site closure Anesthesia: 1% lidocaine locally Location: Right midabdomen Technique: 1 Simple Interrupted Suture Complexity: Simple Post Closure Length: 0.5 cm Patient's leaking was easily controlled in the department. Patient is appropriate for outpatient follow up. She tolerated the procedure well. The patient is follow-up with his primary care physician to determine the sutures should be removed. If no follow-up is obtained, he should return here in 7 days for recheck to have the suture removed. If he has any redness, discharge, fevers, chills, or other new or worsening symptoms he should return immediately. Departure Diagnosis: Primary Impression: Wound drainage Condition: Fair Patient Instructions: Paracentesis Referrals: [facility] YOU HAVE RECEIVED A MEDICAL SCREENING EXAM AND THE RESULTS INDICATE THAT YOU DO NOT HAVE A CONDITION THAT REQUIRES URGENT TREATMENT IN THE EMERGENCY DEPARTMENT. FURTHER EVALUATION AND TREATMENT OF YOUR CONDITION CAN WAIT UNTIL YOU ARE SEEN IN YOUR DOCTORS OFFICE WITHIN THE NEXT 1-2 DAYS. IT IS YOUR RESPONSIBILITY TO MAKE AN APPOINTMENT FOR FOLOW-UP CARE. IF YOU HAVE A PRIMARY DOCTOR --you should call your primary doctor and schedule an appointment IF YOU DO NOT HAVE A PRIMARY DOCTOR YOU CAN CALL OUR PHYSICIAN REFERRAL HOTLINE AT IF YOU CAN NOT AFFORD TO SEE A PHYSICIAN YOU CAN CHOSE FROM THE FOLLOWING [facility] CLINICS [facility] [address] [facility]. [facility] [address] [facility]. [facility] [address] [facility]. [facility] [address] [facility]. [facility] [address] [facility]. [facility]. [address] Additional Instructions: Follow up with your PCP within the next 1-3 days for a repeat evaluation. If you require a referral to a specialist, your Primary Care Provider may be able to provide this for you. In most patient cases, a referral is not required. If you have further questions regarding this matter, please ask your Primary Care Provider. Return the the emergency department immediately if symptoms worsen or change. If you have any questions regarding medications, ask your pharmacist or us before you leave. If any adverse reactions, occur while taking your medications, discontinue the treatment and return to the emergency department immediately. If any new or worsening symptoms, uncontrolled fevers, or other unexplained symptoms occur, return to the emergency department immediately. Take your medications as directed, and complete the entire course of treatment. MINOO PRAJAPATI PA-C Apr 30, 2017 10:44
== END 2017-04-28 21:35 | disposition left against medical advice (07) ==
LOC: FTE 18:36
DX: T81.89XA Other complications of procedures, not elsewhere classified, initial encounter (principal); Y65.8 Other specified misadventures during surgical and medical care
CPT/HCPCS: 12001; Z7502; Z7610

== ENCOUNTER 2017-05-03 08:03 | Emergency (ER) | payer OTHER ==
[~2017-05-03] VITALS: Ht 167.6 cm; Wt 90.5 kg
[2017-05-03 08:07] VITALS: Ht 167.6 cm; Wt 90.5 kg
[2017-05-03 10:02] LABS: ABNORMAL IP MESSAGE 1; BASOPHILS % 0.8 % (0.0-2.0); EOSINOPHILS # 0.1 10^3/ul (0.0-0.5); HEMATOCRIT 30.3 % (42.0-52.0); HEMOGLOBIN 10.3 g/dl (14.0-18.0); LYMPHOCYTES # 0.4 10^3/ul (0.8-2.9); LYMPHOCYTES % 16.4 % (15.0-51.0); MEAN CORPUSCULAR HEMOGLOBIN 34.4 pg (29.0-33.0); MEAN CORPUSCULAR VOLUME 101.3 fl (82.0-101.0); MONOCYTE # 0.3 10^3/ul (0.3-0.9); MONOCYTES % 12.6 % (0.0-11.0); NEUTROPHIL # 1.7 10^3/ul (1.6-7.5); NEUTROPHILS % 65.2 % (39.0-77.0); PLATELET COUNT 53 10^3/UL (140-415); POSITIVE DIFF @See below; RED BLOOD COUNT 2.99 10^6/ul (4.70-6.10); RED CELL DISTRIBUTION WIDTH 14.2 % (11.5-14.5); WHITE BLOOD COUNT 2.6 10^3/ul (4.8-10.8)
[2017-05-03 10:18] LABS: INR 1.67; PROTIME 19.8 Sec (12.2-14.2); PT RATIO 1.5
[2017-05-03 10:19] LABS: PARTIAL THROMBOPLASTIN TIME 39.8 Sec (25.0-35.0)
[2017-05-03] MEDS ORDERED: LIDOCAINE 1% (MPF) 5 ML VIAL ONE (11:12)
[2017-05-03 12:13] VITALS: TEMP 98.3
--- NOTE | 2017-05-03 12:26 | ERD ---
ER Documentation Chief Complaint Chief Complaint WOUND CHECK FOR SUTURES AND REQUESTING ASCITES DRAINAGE HPI This is [id number] male with a history of cirrhosis and ascites who presents to the emergency room for evaluation of abdominal distention. The patient states that he gets frequent paracentesis and states that he feels like he needs on today. He was also requesting a suture removal from his abdomen from a previous paracentesis drainage site. The patient states that he had the suture placed a 7 days ago. He is denying any fever, chills, drainage from the suture. ROS All systems reviewed and are negative except as per history of present illness. Medications Home Meds Active Scripts Lactulose* (Lactulose*) 20 Gm/30 Ml Solution, 20 GM PO BID, #200 ML Prov:BROOKLYN PANTOJA MD 04/07/17 Reported Medications Rifaximin* (Xifaxan*) 550 Mg Tablet, 550 MG PO BID, TAB 02/26/17 Ergocalciferol (Vitamin D2) (VITAMIN D2) 50,000 Unit Capsule, 46009 UNIT PO Q7D , CAP 02/12/17 Pantoprazole* (Pantoprazole*) 40 Mg Tablet.dr, 40 MG PO AC BREAKFAST, TAB 02/12/17 Furosemide* (Furosemide*) 20 Mg Tablet, 40 MG PO BID, #60 TAB 02/12/17 Magnesium Oxide* (Mag-Oxide*) 400 Mg Tablet, 400 MG PO DAILY, TAB 02/12/17 Spironolactone* (Aldactone*) 50 Mg Tablet, 50 MG PO DAILY, #30 TAB 01/18/17 Allergies Allergies: Coded Allergies: No Known Allergy (Unverified , 04/26/17) PMhx/Soc Anesthesia Reaction: No Hx Neurological Disorder: No Hx Respiratory Disorders: No Hx Cardiac Disorders: No Hx Psychiatric Problems: No Hx Miscellaneous Medical Probl: Yes (cirrhosis) Hx Alcohol Use: No Hx Substance Use: No Hx Tobacco Use: No Smoking Status: Never smoker Physical Exam Vitals Vital Signs Date Time Temp Pulse Resp B/P Pulse Ox O2 Delivery O2 Flow Rate FiO2 05/03/17 12:13 98.3 84 18 95/52 100 Room Air 05/03/17 08:07 98.1 101 18 112/66 98 Physical Exam Const: No acute distress Head: Atraumatic Eyes: Normal Conjunctiva ENT: Normal External Ears, Nose and Mouth. Neck: Full range of motion..~ No meningismus. Resp: Clear to auscultation bilaterally Cardio: Regular rate and rhythm, no murmurs Abd: Mild abdominal distention, suture in place, bowel sounds 4 Skin: No petechiae or rashes Back: No midline or flank tenderness Ext: No cyanosis, or edema Neur: Awake and alert Psych: Normal Mood and Affect Result Diagram: 05/03/17 0940 Results 24 hrs Laboratory Tests Test 05/03/17 09:39 05/03/17 09:40 Prothrombin Time 19.8Sec Prothrombin Time Ratio 1.5 INR International Normalized Ratio 1.67 Activated Partial Thromboplast Time 39.8Sec White Blood Count 2.610^3/ul Red Blood Count 2.9910^6/ul Hemoglobin 10.3g/dl Hematocrit 30.3% Mean Corpuscular Volume 101.3fl Mean Corpuscular Hemoglobin 34.4pg Mean Corpuscular Hemoglobin Concent 34.0g/dl Red Cell Distribution Width 14.2% Platelet Count 5310^3/UL Mean Platelet Volume 10.0fl Neutrophils % 65.2% Lymphocytes % 16.4% Monocytes % 12.6% Eosinophils % 5.0% Basophils % 0.8% Nucleated Red Blood Cells % 0.0/100WBC Neutrophils # 1.710^3/ul Lymphocytes # 0.410^3/ul Monocytes # 0.310^3/ul Eosinophils # 0.110^3/ul Basophils # 0.010^3/ul Nucleated Red Blood Cells # 0.010^3/ul Current Medications Medications (Trade) Dose Ordered Sig/Pacheco Route PRN Reason Start Time Stop Time Status Last Admin Dose Admin Lidocaine (Xylocaine 1% (Mpf)) 5 ml STK-MED ONCE .ROUTE 05/03/17 11:12 05/03/17 11:13 DC Procedures/MDM This 57-year-old male presents to the ER for evaluation of abdominal distention and suture removal. This patient does have history of cirrhosis and ascites. This patient underwent paracentesis with removal of over 9 L of fluid. He is hemodynamically stable at this time, states is feeling normal and has no complaints of generalized weakness of dizziness. The patient did have suture removed by myself. Please see suture removal now. Patient will be discharged home at this time. Suture Removal by me: Sutures removed with tweezers and scissors without incident. Wound shows no evidence of infection, foreign body, neurologic injury, vascular injury, open joint or tendon laceration. Patient to follow up PRN. Departure Diagnosis: Primary Impression: Abdominal pain Additional Impressions: Ascites due to alcoholic cirrhosis Encounter for wound re-check Visit for suture removal Condition: Stable SHARLENE CHAMBERS DO May 03, 2017 12:26
[2017-05-03 12:38] VITALS: BP 118/78; PULSE 80; RESP 17
--- NOTE | 2017-05-03 16:45 | RADRPT ---
PROCEDURE: Ultrasound guided paracentesis. CLINICAL INDICATION: Ascites and shortness of breath. COMPARISON: 04/07/2017. TECHNIQUE: The risks, benefits, and alternatives were explained to the patient and/or the patient's family, inc luding but not limited to bleeding, infection, pain, visceral or vascular damage, shock, and . The patient and/or the patient's family understood the risks and the alternatives and wished to pro ceed with the procedure. Informed written consent was obtained. A procedural time out was performed . The patient's name, date of , and procedure to be performed were verified. Utilizing ultrasound guidance, optimal location for entry to the peritoneal cavity was ascertained. The overlying skin was prepped and draped in the usual sterile fashion. Approximately 10 ml of 1% Xylocaine was injected locally for pain control. Using ultrasound guidance, an 8 Norwegian catheter wa s introduced into the peritoneal cavity in the right lower quadrant without difficulty. FINDINGS: Initial images demonstrate ascites. Approximately 10.0 liters of serous fluid was aspirated and dis carded. The patient tolerated the procedure well without complication. IMPRESSION: 1. Successful ultrasound-guided paracentesis. RPTAT: QQ .Stuart Kim MD, Date Time Electronically viewed and signed by .Stuart Kim MD, on 05/03/2017 16:45 .R/
== END 2017-05-03 12:39 | disposition home or self-care (01) ==
LOC: E/R 08:03
DX: R10.9 Unspecified abdominal pain (principal); K70.31 Alcoholic cirrhosis of liver with ascites; Z48.02 Encounter for removal of sutures
CPT/HCPCS: 85025; 85610; 85730; Z7502; Z7610

== ENCOUNTER 2017-05-09 10:09 | Emergency (ER) | payer OTHER ==
[~2017-05-09] VITALS: Wt 92.5 kg
[2017-05-09 12:10] LABS: ABNORMAL IP MESSAGE 1; BASOPHILS % 0.7 % (0.0-2.0); EOSINOPHILS # 0.1 10^3/ul (0.0-0.5); EOSINOPHILS % 2.2 % (0.0-7.0); HEMATOCRIT 31.9 % (42.0-52.0); LYMPHOCYTES # 0.3 10^3/ul (0.8-2.9); LYMPHOCYTES % 10.4 % (15.0-51.0); MEAN CORPUSCULAR HGB CONC 34.5 g/dl (32.0-37.0); MEAN CORPUSCULAR VOLUME 101.6 fl (82.0-101.0); MEAN PLATELET VOLUME 10.3 fl (7.4-10.4); MONOCYTE # 0.4 10^3/ul (0.3-0.9); MONOCYTES % 14.4 % (0.0-11.0); NEUTROPHIL # 1.9 10^3/ul (1.6-7.5); NEUTROPHILS % 71.9 % (39.0-77.0); POSITIVE DIFF @See below; RED BLOOD COUNT 3.14 10^6/ul (4.70-6.10); RED CELL DISTRIBUTION WIDTH 13.8 % (11.5-14.5); WHITE BLOOD COUNT 2.7 10^3/ul (4.8-10.8)
[2017-05-09 12:14] LABS: PLATELET COUNT 67 10^3/UL (140-415)
[2017-05-09 12:32] LABS: INR 1.59; PROTIME 19.1 Sec (12.2-14.2); PT RATIO 1.5
[2017-05-09 12:33] LABS: PARTIAL THROMBOPLASTIN TIME 39.9 Sec (25.0-35.0)
[2017-05-09] MEDS ORDERED: LIDOCAINE 1% (MPF) 5 ML VIAL ONE (14:11)
--- NOTE | 2017-05-09 14:11 | ERD ---
ER Documentation Chief Complaint Chief Complaint PT HERE FOR PARACENTESIS HPI This 57-year-old male presents for generalized abdominal pain and distention secondary to accumulation of fluid. 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 He was here 1 week ago when he had 10 L removed. He is getting end-stage liver disease and has a reticulation of fluid that is tense. He has no pain separate from this. He denies any fevers chills. He says this is the same pain he gets when the fluid accumulates too much. No shortness of breath. ROS All systems reviewed and are negative except as per history of present illness. Medications Home Meds Active Scripts Lactulose* (Lactulose*) 20 Gm/30 Ml Solution, 20 GM PO BID, #200 ML Prov:BROOKLYN PANTOJA MD 04/07/17 Reported Medications Rifaximin* (Xifaxan*) 550 Mg Tablet, 550 MG PO BID, TAB 02/26/17 Ergocalciferol (Vitamin D2) (VITAMIN D2) 50,000 Unit Capsule, 68202 UNIT PO Q7D , CAP 02/12/17 Pantoprazole* (Pantoprazole*) 40 Mg Tablet.dr, 40 MG PO AC BREAKFAST, TAB 02/12/17 Furosemide* (Furosemide*) 20 Mg Tablet, 40 MG PO BID, #60 TAB 02/12/17 Magnesium Oxide* (Mag-Oxide*) 400 Mg Tablet, 400 MG PO DAILY, TAB 02/12/17 Spironolactone* (Aldactone*) 50 Mg Tablet, 50 MG PO DAILY, #30 TAB 01/18/17 Allergies Allergies: Coded Allergies: No Known Allergy (Unverified , 04/26/17) PMhx/Soc Anesthesia Reaction: No Hx Neurological Disorder: No Hx Respiratory Disorders: No Hx Cardiac Disorders: No Hx Psychiatric Problems: No Hx Miscellaneous Medical Probl: Yes (cirrhosis, frequent paracentesis) Hx Alcohol Use: No Hx Substance Use: No Hx Tobacco Use: No Smoking Status: Never smoker Physical Exam Vitals Vital Signs Date Time Temp Pulse Resp B/P Pulse Ox O2 Delivery O2 Flow Rate FiO2 05/09/17 10:12 98.4 106 19 121/55 95 Physical Exam Const: [] Mild distress Head: Atraumatic Eyes: Normal Conjunctiva ENT: Normal External Ears, Nose and Mouth. Resp: Clear to auscultation bilaterally Cardio: Regular rate and rhythm, no murmurs Abd: Soft, safe area of tenderness, positive fluid wave, severe distention that is compressible but somewhat firm. Skin: No petechiae or rashes Ext: No cyanosis, or edema Neur: Awake and alert 3, no focal deficits Result Diagram: 05/09/17 1144 Results 24 hrs Laboratory Tests Test 05/09/17 11:44 White Blood Count 2.710^3/ul Red Blood Count 3.1410^6/ul Hemoglobin 11.0g/dl Hematocrit 31.9% Mean Corpuscular Volume 101.6fl Mean Corpuscular Hemoglobin 35.0pg Mean Corpuscular Hemoglobin Concent 34.5g/dl Red Cell Distribution Width 13.8% Platelet Count 6710^3/UL Mean Platelet Volume 10.3fl Neutrophils % 71.9% Lymphocytes % 10.4% Monocytes % 14.4% Eosinophils % 2.2% Basophils % 0.7% Nucleated Red Blood Cells % 0.0/100WBC Neutrophils # 1.910^3/ul Lymphocytes # 0.310^3/ul Monocytes # 0.410^3/ul Eosinophils # 0.110^3/ul Basophils # 0.010^3/ul Nucleated Red Blood Cells # 0.010^3/ul Prothrombin Time 19.1Sec Prothrombin Time Ratio 1.5 INR International Normalized Ratio 1.59 Activated Partial Thromboplast Time 39.9Sec Procedures/MDM Ascites secondary to known liver failure. I have low suspicion for spontaneous bacterial peritonitis the patient has no fevers or acute symptoms. He had relief after ultrasound-guided paracentesis performed in radiology. Discharging with primary care follow-up as well as hepatology follow-up and return precautions for any fevers. Departure Diagnosis: Primary Impression: Ascites of liver Additional Impressions: Pancytopenia Abdominal pain Condition: Stable Patient Instructions: Ascites Additional Instructions: Llame al doctor MASCHUYLER y abisai danika NEREIDA PARA DENTRO DE 2-3 DICKERSON.Dgale a la secretaria que nosotros le instruimos hacer esta nereida.Avise o llame si mobley condicin se empeora antes de la nereida. Regresa aqui si peor o no mejor. EARL MENDOZA DO May 09, 2017 14:11
[2017-05-09 14:59] VITALS: BP 112/62; PULSE 90; RESP 17; TEMP 98.1
--- NOTE | 2017-05-09 16:08 | RADRPT ---
PROCEDURE: Ultrasound guided paracentesis. CLINICAL INDICATION: Ascites and shortness of breath. COMPARISON: 05/03/2017. TECHNIQUE: The risks, benefits, and alternatives were explained to the patient and/or the patient's family, inc luding but not limited to bleeding, infection, pain, visceral or vascular damage, shock, and . The patient and/or the patient's family understood the risks and the alternatives and wished to pro ceed with the procedure. Informed written consent was obtained. A procedural time out was performed . The patient's name, date of , and procedure to be performed were verified. Utilizing ultrasound guidance, optimal location for entry to the peritoneal cavity was ascertained. The overlying skin was prepped and draped in the usual sterile fashion. Approximately 10 ml of 1% Xylocaine was injected locally for pain control. Using ultrasound guidance, an 8 [place] catheter wa s introduced into the peritoneal cavity in the left lower quadrant without difficulty. FINDINGS: Initial images demonstrate ascites. Approximately 10.0 liters of serous fluid was aspirated and dis carded. The patient tolerated the procedure well without complication. IMPRESSION: 1. Successful ultrasound-guided paracentesis. RPTAT: QQ .Stuart Kim MD, Date Time Electronically viewed and signed by .Staurt Kim MD, on 05/09/2017 16:08 .R/
== END 2017-05-09 15:05 | disposition home or self-care (01) ==
LOC: E/R 10:09
DX: R18.8 Other ascites (principal); D61.818 Other pancytopenia; R10.9 Unspecified abdominal pain
CPT/HCPCS: 85025; 85610; 85730; Z7502; Z7610

== ENCOUNTER 2017-05-13 07:07 | Emergency (ER) | payer OTHER ==
[~2017-05-13] VITALS: Ht 167.6 cm; Wt 91.0 kg
[2017-05-13 07:10] VITALS: Ht 167.6 cm; Wt 91.0 kg
[2017-05-13] MEDS ORDERED: ALBUMIN HUMAN 5% 250 ML IV ONE (08:00)
--- NOTE | 2017-05-13 08:19 | ERD ---
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 The patient presents to the emergency department today requesting a paracentesis as he has had worsening of his ascites. His last paracentesis was May 09, 5 days prior to arrival for 10 L of transparent fluid was removed. The patient states he had no fever no shaking or chills. He denies any abdominal pain. He complains of mild dyspnea due to his worsening abdominal distention which he states is a symptom he appreciates when his ascites worsens. He denies any shortness of breath at rest or exertion. He denies any hemoptysis hematemesis or melanotic stools. ROS All systems reviewed and are negative except as per history of present illness. Medications Home Meds Active Scripts Lactulose* (Lactulose*) 20 Gm/30 Ml Solution, 20 GM PO BID, #200 ML Prov:BROOKLYN PANTOJA MD 04/07/17 Reported Medications Rifaximin* (Xifaxan*) 550 Mg Tablet, 550 MG PO BID, TAB 02/26/17 Ergocalciferol (Vitamin D2) (VITAMIN D2) 50,000 Unit Capsule, 47798 UNIT PO Q7D , CAP 02/12/17 Pantoprazole* (Pantoprazole*) 40 Mg Tablet.dr, 40 MG PO AC BREAKFAST, TAB 02/12/17 Furosemide* (Furosemide*) 20 Mg Tablet, 40 MG PO BID, #60 TAB 02/12/17 Magnesium Oxide* (Mag-Oxide*) 400 Mg Tablet, 400 MG PO DAILY, TAB 02/12/17 Spironolactone* (Aldactone*) 50 Mg Tablet, 50 MG PO DAILY, #30 TAB 01/18/17 Allergies Allergies: Coded Allergies: No Known Allergy (Unverified , 04/26/17) PMhx/Soc Anesthesia Reaction: No Hx Neurological Disorder: No Hx Respiratory Disorders: No Hx Cardiac Disorders: No Hx Psychiatric Problems: No Hx Miscellaneous Medical Probl: Yes (cirrhosis, frequent paracentesis) Hx Alcohol Use: No Hx Substance Use: No Hx Tobacco Use: No Smoking Status: Never smoker Physical Exam Vitals Vital Signs Date Time Temp Pulse Resp B/P Pulse Ox O2 Delivery O2 Flow Rate FiO2 05/13/17 07:10 97.3 115 20 107/65 99 Physical Exam Constitutional:Well-developed. Well-nourished. HEENT:Normocephalic. Atraumatic.Pupils were equal round reactive to light. Moist mucous membranes.No tonsillar exudates. Neck: No nuchal rigidity. No lymphadenopathy. No posterior cervical spine tenderness or step-offs. Respiratory: Not using accessory muscles of respiration.Lungs were clear to auscultation bilaterally. No rhonchi. No rales. No wheezing. Cardiovascular: Regular rate regular rhythm.No murmurs. No rubs were appreciated.S1, S2 normal. Distal pulses are palpable 2+ bilaterally. GI: Abdomen was distended with tense ascites and positive fluid thrill. No abdominal tenderness. No pulsatile abdominal masses or bruits. No rebound. No guarding. Bowel sounds were present and normal. Muscle skeletal: Full range of motion of both the upper and lower extremities bilaterally.Normal muscle tone.No assymetrical calf tenderness or swelling. Skin: No petechia, no purpura. No lesions on the palms or the soles of the feet. No maculopapular rash. NEURO: Patient was alert, awake, orientated x3.No facial droop. Gait observed and normal with no ataxia.Speech had regular rate and rhythm. No focal neurological deficits. Results 24 hrs Current Medications Medications (Trade) Dose Ordered Sig/Pacheco Route PRN Reason Start Time Stop Time Status Last Admin Dose Admin Albumin Human 250 ml @ 250 mls/hr ONCE ONCE IV 05/13/17 08:00 05/13/17 08:59 Procedures/MDM This patient presented to the emergency department with a known history of ascites and multiple recurrent paracentesis disease. The patient had no physical exam findings to suggest spontaneous bacterial peritonitis. The patient underwent an ultrasound-guided paracentesis performed by the radiologist. Due to the large amount of ascitic transparent fluid removed the patient was given colloid replacement with IV albumin 5%. The patient was discharged home in fair condition. They were instructed to return to the emergency department at any time if there was any worsening of their condition. The patient stated they would follow up with their PCP in the next 24-48 hours to initiate a suitable medication regimen under the care of their PCP as well as to allow their PCP to monitor any drug reactions. The patient was discharged home with prescriptions after they gave informed consent to the new medication. They were also fully informed by myself on the adverse effects and adverse drug interactions in order to provide adequate safeguards to prevent possible adverse reactions to medications. Departure Diagnosis: Primary Impression: Ascites due to alcoholic cirrhosis Condition: EMILIA Urias May 13, 2017 08:19
[2017-05-13] MEDS ORDERED: LIDOCAINE 1% (MPF) 5 ML VIAL ONE (11:06)
--- NOTE | 2017-05-13 12:24 | RADRPT ---
PROCEDURE: Ultrasound guided paracentesis CLINICAL INDICATION: Ascites TECHNIQUE: The risks benefits and alternatives of the procedure were explained to the patient. In formed written consent was obtained. A time out was performed. The patient understood the risks be nefits and alternatives and wished to proceed with the procedure. The overlying skin of the right l ower quadrant of the abdomen was prepped and draped in the usual sterile fashion. Approximately 10 c c of Xylocaine was injected locally for pain control. Utilizing ultrasound guidance, a skinny 5-Wily [facility] Yueh catheter was placed into the peritoneal cavity without difficulty. The patient tolerated the procedure well without complication. Approximately 24605 cc of thin janett fluid was obtained. The fluid was not sent to the lab for further analysis. COMPARISON: 05/03/2017 FINDINGS: Initial ultrasound demonstrated a large amount of simple appearing ascites. Successful [place] [address] [place] yellow fluid aspirated. IMPRESSION: Successful ultrasound-guided paracentesis. RPTAT: QQ .Johnathan Murray MD, MD Date Time Electronically viewed and signed by .Johnathan Murray MD, on 05/13/2017 12:24 .A/
--- NOTE | 2017-05-13 12:24 | RADRPT ---
PROCEDURE: Ultrasound guided paracentesis CLINICAL INDICATION: Ascites TECHNIQUE: The risks benefits and alternatives of the procedure were explained to the patient. In formed written consent was obtained. A time out was performed. The patient understood the risks be nefits and alternatives and wished to proceed with the procedure. The overlying skin of the right l ower quadrant of the abdomen was prepped and draped in the usual sterile fashion. Approximately 10 c c of Xylocaine was injected locally for pain control. Utilizing ultrasound guidance, a skinny 5-Wily [facility] Yueh catheter was placed into the peritoneal cavity without difficulty. The patient tolerated the procedure well without complication. Approximately 30567 cc of thin janett fluid was obtained. The fluid was not sent to the lab for further analysis. COMPARISON: 05/03/2017 FINDINGS: Initial ultrasound demonstrated a large amount of simple appearing ascites. Successful [place]g [place] [address] [place] of [place] yellow fluid aspirated. IMPRESSION: Successful ultrasound-guided paracentesis. RPTAT: QQ .Johnathan Murray MD, MD Date Time Electronically viewed and signed by .Johnathan Murray MD, on 05/13/2017 12:24 .A/
--- NOTE | 2017-05-13 12:24 | RADRPT ---
PROCEDURE: Ultrasound guided paracentesis CLINICAL INDICATION: Ascites TECHNIQUE: The risks benefits and alternatives of the procedure were explained to the patient. In formed written consent was obtained. A time out was performed. The patient understood the risks be nefits and alternatives and wished to proceed with the procedure. The overlying skin of the right l ower quadrant of the abdomen was prepped and draped in the usual sterile fashion. Approximately 10 c c of Xylocaine was injected locally for pain control. Utilizing ultrasound guidance, a skinny 5-Wily [facility] Yueh catheter was placed into the peritoneal cavity without difficulty. The patient tolerated the procedure well without complication. Approximately 23554 cc of thin janett fluid was obtained. The fluid was not sent to the lab for further analysis. COMPARISON: 05/03/2017 FINDINGS: Initial ultrasound demonstrated a large amount of simple appearing ascites. Successful ultrasound[place] [address] [place] of thin yellow fluid aspirated. IMPRESSION: Successful ultrasound-guided paracentesis. RPTAT: QQ .Johnathan Murray MD, MD Date Time Electronically viewed and signed by .Johnathan Murray MD, on 05/13/2017 12:24 .A/
[2017-05-13 14:19] VITALS: BP 105/62; PULSE 75; RESP 18; TEMP 98.3
== END 2017-05-13 14:22 | disposition home or self-care (01) ==
LOC: E/R 07:07
DX: K70.31 Alcoholic cirrhosis of liver with ascites (principal); R40.2142 Coma scale, eyes open, spontaneous, at arrival to emergency department; R40.2252 Coma scale, best verbal response, oriented, at arrival to emergency department; R40.2362 Coma scale, best motor response, obeys commands, at arrival to emergency department
CPT/HCPCS: 80053; 85025; 85610; 85730; P9045; Z7502; Z7610

== ENCOUNTER 2017-05-18 01:28 | Emergency (ER) | payer OTHER ==
[~2017-05-18] VITALS: Ht 172.7 cm; Wt 93.8 kg
[2017-05-18 01:32] VITALS: Ht 172.7 cm; Wt 93.8 kg
--- NOTE | 2017-05-18 01:42 | ERD ---
ER Documentation Chief Complaint Chief Complaint Abdominal distention HPI The patient is a 57-year-old male, presenting to the ER because of recurrent abdominal distention. He has similar symptoms previously, 5 days ago and had abdominal paracentesis to a level about 12.2 L of fluid. he denies fever, chills, neck pain, chest pain, complains of dyspnea due to abdominal distention , denies nausea, vomiting, dysuria, diarrhea. He does not smoke nor drink Past medical history: Cirrhosis Past surgical history: Multiple abdominal paracentesis ROS All systems reviewed and are negative except as per history of present illness. Medications Home Meds Active Scripts Lactulose* (Lactulose*) 20 Gm/30 Ml Solution, 20 GM PO BID, #200 ML Prov:BROOKLYN PANTOJA MD 04/07/17 Reported Medications Rifaximin* (Xifaxan*) 550 Mg Tablet, 550 MG PO BID, TAB 02/26/17 Ergocalciferol (Vitamin D2) (VITAMIN D2) 50,000 Unit Capsule, 44032 UNIT PO Q7D , CAP 02/12/17 Pantoprazole* (Pantoprazole*) 40 Mg Tablet.dr, 40 MG PO AC BREAKFAST, TAB 02/12/17 Furosemide* (Furosemide*) 20 Mg Tablet, 40 MG PO BID, #60 TAB 02/12/17 Magnesium Oxide* (Mag-Oxide*) 400 Mg Tablet, 400 MG PO DAILY, TAB 02/12/17 Spironolactone* (Aldactone*) 50 Mg Tablet, 50 MG PO DAILY, #30 TAB 01/18/17 Allergies Allergies: Coded Allergies: No Known Allergy (Unverified , 05/18/17) PMhx/Soc Anesthesia Reaction: No Hx Neurological Disorder: No Hx Respiratory Disorders: No Hx Cardiac Disorders: No Hx Psychiatric Problems: No Hx Miscellaneous Medical Probl: Yes (cirrhosis, frequent paracentesis) Hx Alcohol Use: No Hx Substance Use: No Hx Tobacco Use: No Physical Exam Vitals Vital Signs Date Time Temp Pulse Resp B/P Pulse Ox O2 Delivery O2 Flow Rate FiO2 05/18/17 01:32 98.1 97 20 104/61 97 Physical Exam Const: No acute distress. Head: Atraumatic. Eyes: Normal Conjunctiva. ENT: Normal External Ears, Nose and Mouth. Neck: Full range of motion. No meningismus. Resp: Clear to auscultation bilaterally. Cardio: Regular rate and rhythm. Abd: Soft, ascites, normal bowel sounds, non tender. Skin: No petechiae or rashes. Back: No midline or flank tenderness. Ext: No cyanosis, or edema. Neur: Awake and alert. No focal deficit Psych: Normal Mood and Affect. Result Diagram: 05/18/17 0150 05/18/17 0225 Results 24 hrs Laboratory Tests Test 05/18/17 01:50 05/18/17 02:25 White Blood Count 5.110^3/ul Red Blood Count 3.6010^6/ul Hemoglobin 12.5g/dl Hematocrit 36.0% Mean Corpuscular Volume 100.0fl Mean Corpuscular Hemoglobin 34.7pg Mean Corpuscular Hemoglobin Concent 34.7g/dl Red Cell Distribution Width 13.3% Platelet Count 9210^3/UL Mean Platelet Volume 10.7fl Neutrophils % 74.6% Lymphocytes % 11.1% Monocytes % 12.5% Eosinophils % 1.2% Basophils % 0.4% Nucleated Red Blood Cells % 0.0/100WBC Neutrophils # 3.810^3/ul Lymphocytes # 0.610^3/ul Monocytes # 0.610^3/ul Eosinophils # 0.110^3/ul Basophils # 0.010^3/ul Nucleated Red Blood Cells # 0.010^3/ul Prothrombin Time 18.5Sec Prothrombin Time Ratio 1.4 INR International Normalized Ratio 1.52 Activated Partial Thromboplast Time 36.1Sec Sodium Level 134mmol/L Potassium Level 4.1mmol/L Chloride Level 99mmol/L Carbon Dioxide Level 25mmol/L Anion Gap 14 Blood Urea Nitrogen 18mg/dl Creatinine 0.91mg/dl Glucose Level 89mg/dl Calcium Level 8.3mg/dl [facility] MEDICAL MAKING DECISION: The patient is a 57-year-old male, presenting with acute recurrent ascites. He is stable for discharge and return in the morning for paracentesis by radiologist The differential diagnoses considered include but are not limited to SBP, cholelithiasis, cholecystitis, cystitis, pancreatitis, hepatitis, gastritis, peptic ulcer disease, gastric ulcer, appendicitis, diverticulitis, cholangitis, choledocholithiasis, partial small bowel obstruction. Departure Diagnosis: Primary Impression: Ascites Additional Impressions: Anemia Thrombocytopenia Condition: Good Comments I discussed the findings with the patient. I advised the patient to return in the morning for abdominal paracentesis by radiologist Disclaimer: Inadvertent spelling and grammatical errors are likely due to EHR/ dictation software use and do not reflect on the overall quality of patient care. Also, please note that the electronic time recorded on this note does not necessarily reflect the actual time of the patient encounter. MANJU VAN MD May 18, 2017 01:42
[2017-05-18 03:43] VITALS: BP 120/71; PULSE 70; RESP 20; TEMP 98.1
== END 2017-05-18 03:43 | disposition home or self-care (01) ==
LOC: E/R 01:28
DX: D64.9 Anemia, unspecified (principal); R18.8 Other ascites; D69.6 Thrombocytopenia, unspecified
CPT/HCPCS: 80048; 85025; 85610; 85730; Z7502; 99283

== ENCOUNTER 2017-05-18 08:17 | Emergency (ER) | payer OTHER ==
[~2017-05-18] VITALS: Wt 93.6 kg
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
[2017-05-18 11:32] VITALS: BP 110/78; PULSE 75; RESP 17
== END 2017-05-18 11:32 | disposition home or self-care (01) ==
LOC: E/R 08:17
DX: K70.31 Alcoholic cirrhosis of liver with ascites (principal)
CPT/HCPCS: 49083; Z7502

== ENCOUNTER 2017-05-23 08:08 | Emergency (ER) | payer MEDICAID, OTHER ==
[~2017-05-23] VITALS: Ht 172.7 cm; Wt 95.6 kg
[2017-05-23 08:11] VITALS: Ht 172.7 cm; Wt 95.6 kg
[2017-05-23] MEDS ORDERED: LIDOCAINE 1% (MPF) 5 ML VIAL ONE (10:44)
[2017-05-23 11:48] VITALS: BP 111/59; PULSE 105; RESP 18
--- NOTE | 2017-05-23 12:11 | ERD ---
ER Documentation Chief Complaint Chief Complaint needs paracentesis HPI This is a 57-year-old male with a known history of cirrhosis who is well-known to the emergency room who presents to the emergency room today for evaluation of abdominal distention. The patient states that he needs fluid drained from his abdomen. The patient states that his last paracentesis was done approximately 1 week ago. Patient denies any fevers or chills and denies any aggravating or relieving factors. ROS All systems reviewed and are negative except as per history of present illness. Medications Home Meds Active Scripts Lactulose* (Lactulose*) 20 Gm/30 Ml Solution, 20 GM PO BID, #200 ML Prov:BROOKLYN PANTOJA MD 04/07/17 Reported Medications Rifaximin* (Xifaxan*) 550 Mg Tablet, 550 MG PO BID, TAB 02/26/17 Ergocalciferol (Vitamin D2) (VITAMIN D2) 50,000 Unit Capsule, 63999 UNIT PO Q7D , CAP 02/12/17 Pantoprazole* (Pantoprazole*) 40 Mg Tablet.dr, 40 MG PO AC BREAKFAST, TAB 02/12/17 Furosemide* (Furosemide*) 20 Mg Tablet, 40 MG PO BID, #60 TAB 02/12/17 Magnesium Oxide* (Mag-Oxide*) 400 Mg Tablet, 400 MG PO DAILY, TAB 02/12/17 Spironolactone* (Aldactone*) 50 Mg Tablet, 50 MG PO DAILY, #30 TAB 01/18/17 Allergies Allergies: Coded Allergies: No Known Allergy (Unverified , 05/18/17) PMhx/Soc Anesthesia Reaction: No Hx Neurological Disorder: No Hx Respiratory Disorders: No Hx Cardiac Disorders: No Hx Psychiatric Problems: No Hx Miscellaneous Medical Probl: Yes (cirrhosis, frequent paracentesis) Hx Alcohol Use: No Hx Substance Use: No Hx Tobacco Use: No Smoking Status: Never smoker Physical Exam Vitals Vital Signs Date Time Temp Pulse Resp B/P Pulse Ox O2 Delivery O2 Flow Rate FiO2 05/23/17 11:48 105 18 111/59 99 Room Air 05/23/17 08:11 98.1 118 20 96/58 97 Physical Exam INITIAL VITAL SIGNS: Reviewed by me GENERAL: The patient is well developed and appropriate for usual state of health in no apparent distress HEENT: Pupils equal, round, and reactive to light. EOMI. There is no scleral icterus. NECK: C-spine is soft and supple, there is no meningismus. There is no cervical lymphadenopathy. LUNGS: Clear to auscultation bilaterally. There are no rales, wheezes or rhonchi. HEART: Regular rate and rhythm, no murmurs, clicks, rubs or gallops. ABDOMEN: Abdominal distention, soft, non-tender. There are bowel sounds in all four quadrants. No rebound or guarding. EXTREMITIES: There is no peripheral cyanosis or edema. No focal swelling or erythema. NEUROLOGICAL: The patient moves all four extremities with 5/5 strength. Cranial nerves II - XII are intact. Normal gait. Alert and oriented SKIN: There is no apparent rash or petechiae. HEME/LYMPHATIC: There is no evidence of excessive bruising or lymphedema. PSYCHIATRIC: The patient does not appear anxious or depressed. Results 24 hrs Current Medications Medications (Trade) Dose Ordered Sig/Pacheco Route PRN Reason Start Time Stop Time Status Last Admin Dose Admin Lidocaine (Xylocaine 1% (Mpf)) 5 ml STK-MED ONCE .ROUTE 05/23/17 10:44 05/23/17 10:45 DC 05/23/17 11:16 Procedures/MDM This 57-year-old male presents to the ER for evaluation of abdominal distention. The patient has a known history of cirrhosis and has had multiple paracentesis done in the emergency room. He presents again today for evaluation of abdominal distention. The patient was afebrile, hemodynamically stable. He underwent a paracentesis. The patient was observed for 30 minutes after the paracentesis and is hemodynamically stable with no signs of hypotension. He has no fever my suspicion for SBP is low at this time. The patient will be discharged home structures to return at any point for reevaluation and he verbalized understanding. Departure Diagnosis: Primary Impression: Ascites due to alcoholic cirrhosis Condition: SHARLENE Lucas DO May 23, 2017 12:11
--- NOTE | 2017-05-23 16:41 | RADRPT ---
PROCEDURE: Ultrasound guided paracentesis. CLINICAL INDICATION: Ascites and shortness of breath. COMPARISON: 05/13/2017. TECHNIQUE: The risks, benefits, and alternatives were explained to the patient and/or the patient's family, inc luding but not limited to bleeding, infection, pain, visceral or vascular damage, shock, and . The patient and/or the patient's family understood the risks and the alternatives and wished to pro ceed with the procedure. Informed written consent was obtained. A procedural time out was performed . The patient's name, date of , and procedure to be performed were verified. Utilizing ultrasound guidance, optimal location for entry to the peritoneal cavity was ascertained. The overlying skin was prepped and draped in the usual sterile fashion. Approximately 10 ml of 1% Xylocaine was injected locally for pain control. Using ultrasound guidance, an 8 [place] catheter wa s introduced into the peritoneal cavity in the right lower quadrant without difficulty. FINDINGS: Initial images demonstrate ascites. Approximately 10.0 liters of serous fluid was aspirated and dis carded. The patient tolerated the procedure well without complication. IMPRESSION: 1. Successful ultrasound-guided paracentesis. RPTAT: QQ .Stuart Kim MD, Date Time Electronically viewed and signed by .Stuart Kim MD, on 05/23/2017 16:40 .R/
== END 2017-05-23 12:25 | disposition home or self-care (01) ==
LOC: E/R 08:08
DX: K70.31 Alcoholic cirrhosis of liver with ascites (principal); R40.2252 Coma scale, best verbal response, oriented, at arrival to emergency department; R40.2142 Coma scale, eyes open, spontaneous, at arrival to emergency department; R40.2362 Coma scale, best motor response, obeys commands, at arrival to emergency department
CPT/HCPCS: Z7502; Z7610

== ENCOUNTER 2017-05-24 16:16 | Emergency (ER) | payer MEDICAID ==
[~2017-05-24] VITALS: Ht 172.7 cm; Wt 90.2 kg
[2017-05-24 16:25] VITALS: Ht 172.7 cm; Wt 90.2 kg
[2017-05-24 17:08] VITALS: BP 95/59; PULSE 113; RESP 26; TEMP 98.3
[2017-05-24] MEDS ORDERED: LIDOCAINE 1% (MDV) 20 ML INJ SC ONE (17:30)
--- NOTE | 2017-05-24 17:40 | ERD ---
ER Documentation Chief Complaint Chief Complaint Leaking from the paracenthisis site x 1 day HPI This is a 57-year-old male well-known to the ER presents to the ER for evaluation of leakage from his paracentesis site. The patient had a paracentesis yesterday for ascites secondary to liver cirrhosis. The patient has had no fevers or chills and came to the ER for evaluation of leakage from the site. The patient states this is happened in the past and he has needed his site sutured ROS All systems reviewed and are negative except as per history of present illness. Medications Home Meds Active Scripts Lactulose* (Lactulose*) 20 Gm/30 Ml Solution, 20 GM PO BID, #200 ML Prov:BROOKLYN PANTOJA MD 04/07/17 Reported Medications Rifaximin* (Xifaxan*) 550 Mg Tablet, 550 MG PO BID, TAB 02/26/17 Ergocalciferol (Vitamin D2) (VITAMIN D2) 50,000 Unit Capsule, 71417 UNIT PO Q7D , CAP 02/12/17 Pantoprazole* (Pantoprazole*) 40 Mg Tablet.dr, 40 MG PO AC BREAKFAST, TAB 02/12/17 Furosemide* (Furosemide*) 20 Mg Tablet, 40 MG PO BID, #60 TAB 02/12/17 Magnesium Oxide* (Mag-Oxide*) 400 Mg Tablet, 400 MG PO DAILY, TAB 02/12/17 Spironolactone* (Aldactone*) 50 Mg Tablet, 50 MG PO DAILY, #30 TAB 01/18/17 Allergies Allergies: Coded Allergies: No Known Allergy (Unverified , 05/18/17) PMhx/Soc Medical and Surgical Hx: pt denies Surgical Hx Anesthesia Reaction: No Hx Neurological Disorder: No Hx Respiratory Disorders: No Hx Cardiac Disorders: No Hx Psychiatric Problems: No Hx Miscellaneous Medical Probl: Yes (cirrhosis, frequent paracentesis) Hx Alcohol Use: No Hx Substance Use: No Hx Tobacco Use: No Smoking Status: Unknown if ever smoked Physical Exam Vitals Vital Signs Date Time Temp Pulse Resp B/P Pulse Ox O2 Delivery O2 Flow Rate FiO2 05/24/17 17:08 98.3 113 26 95/59 99 Room Air 05/24/17 16:25 98.3 113 26 95/59 99 Physical Exam Const: No acute distress Head: Atraumatic Eyes: Normal Conjunctiva ENT: Normal External Ears, Nose and Mouth. Neck: Full range of motion..~ No meningismus. Resp: Clear to auscultation bilaterally Cardio: Regular rate and rhythm, no murmurs Abd: Abdominal distention with small puncture site noted in the right lower quadrant with drainage of clear fluid. Skin: No petechiae or rashes Back: No midline or flank tenderness Ext: No cyanosis, or edema Neur: Awake and alert Psych: Normal Mood and Affect Results 24 hrs Current Medications Medications (Trade) Dose Ordered Sig/Pacheco Route PRN Reason Start Time Stop Time Status Last Admin Dose Admin Lidocaine (Xylocaine 1% (Mdv) 20 ml) 20 ml ONCE ONCE SC 05/24/17 17:30 05/24/17 17:31 DC Procedures/MDM Laceration Repair by me: Anesthesia: 1% lidocaine locally Location: Abdomen wall Tendon/Joint/Nerves: No injury Foreign body: None detected after copious irrigation and exploration Technique: [id number] suture Complexity: No subcutaneous sutures/mucosal repair/edge excision Post Closure Length: 0.5cm Patient's bleeding was easily controlled in the department and there is no indication of anemia. No evidence of compartment syndrome, neurologic injury, vascular injury, open joint, tendon laceration, or foreign body. Patient is appropriate for outpatient follow up. 48 hour wound check. Scar minimization instructions given. This 57-year-old male presents to the ER for evaluation of drainage of fluid from his paracentesis site. I noted that this patient did have a small puncture site with drainage of clear fluid. I did attempt to put Dermabond over the site however was unsuccessful as this patient did have continued leakage of fluid around the Dermabond. The patient underwent a [id number] suture placement over the incision site which controlled the drainage. This patient is in no acute distress and will be discharged at this time. Departure Diagnosis: Primary Impression: Open abdominal incision with drainage Additional Impression: Wound drainage Condition: Stable SHARLENE CHAMBERS DO May 24, 2017 17:40
== END 2017-05-24 17:40 | disposition home or self-care (01) ==
LOC: E/R 16:16
DX: T81.89XA Other complications of procedures, not elsewhere classified, initial encounter (principal); R40.2252 Coma scale, best verbal response, oriented, at arrival to emergency department; R40.2142 Coma scale, eyes open, spontaneous, at arrival to emergency department; R40.2362 Coma scale, best motor response, obeys commands, at arrival to emergency department; Y82.8 Other medical devices associated with adverse incidents
CPT/HCPCS: Z7502; Z7610; 99282

== ENCOUNTER 2017-05-26 14:35 | Inpatient (IN) | payer MEDICAID ==
[~2017-05-26] VITALS: Ht 175.3 cm; Wt 95.0 kg
[2017-05-26] MEDS ORDERED: SOD CHLORIDE 0.9% 1,000 ML IV STA (15:22)
[2017-05-26] MEDS ORDERED: LIDOCAINE 1% (MDV) 20 ML INJ ONE (15:41)
[2017-05-26] MEDS ORDERED: ETOMIDATE 20 MG INJ ONE (16:00)
[2017-05-26] MEDS ORDERED: ROCURONIUM 50 MG INJ ONE (16:00)
[2017-05-26] MEDS ORDERED: LORAZEPAM 2 MG INJ ONE (16:05)
[2017-05-26] MEDS ORDERED: MIDAZOLAM (DRIP) 50 mg/50 mL 50 ML IV STA (16:06)
--- NOTE | 2017-05-26 16:25 | ERD ---
ER Documentation Chief Complaint Chief Complaint Complains of abdominal pain Hx od Ascites HPI 57-year-old man complains of recent abdominal swelling and abdominal pain. He states he is short of breath and has difficulty breathing 2 days. He denies blood per rectum or melena, no fevers or chills, no vomiting or diarrhea. HPI limited. ROS All systems reviewed and are negative except as per history of present illness. Medications Home Meds Active Scripts Lactulose* (Lactulose*) 20 Gm/30 Ml Solution, 20 GM PO BID, #200 ML Prov:BROOKLYN PANTOJA MD 04/07/17 Reported Medications Rifaximin* (Xifaxan*) 550 Mg Tablet, 550 MG PO BID, TAB 02/26/17 Ergocalciferol (Vitamin D2) (VITAMIN D2) 50,000 Unit Capsule, 72701 UNIT PO Q7D , CAP 02/12/17 Pantoprazole* (Pantoprazole*) 40 Mg Tablet.dr, 40 MG PO AC BREAKFAST, TAB 02/12/17 Furosemide* (Furosemide*) 20 Mg Tablet, 40 MG PO BID, #60 TAB 02/12/17 Magnesium Oxide* (Mag-Oxide*) 400 Mg Tablet, 400 MG PO DAILY, TAB 02/12/17 Spironolactone* (Aldactone*) 50 Mg Tablet, 50 MG PO DAILY, #30 TAB 01/18/17 Allergies Allergies: Coded Allergies: No Known Allergy (Unverified , 05/18/17) PMhx/Soc Cirrhosis, recurrent, gastritis Anesthesia Reaction: No Hx Neurological Disorder: No Hx Respiratory Disorders: No Hx Cardiac Disorders: No Hx Psychiatric Problems: No Hx Miscellaneous Medical Probl: Yes (cirrhosis, frequent paracentesis) Hx Alcohol Use: No Hx Substance Use: No Hx Tobacco Use: No Smoking Status: Never smoker FmHx Family History: No diabetes Physical Exam Vitals Vital Signs Date Time Temp Pulse Resp B/P Pulse Ox O2 Delivery O2 Flow Rate FiO2 05/26/17 17:05 97.9 130 18 111/72 100 Room Air 05/26/17 16:00 140 16 100 100 05/26/17 14:40 97.5 107 20 65/29 100 Physical Exam GENERAL: Elderly man appears dyspneic, afebrile, hypotensive HEENT: Dry mucous membranes, pink conjunctiva, no cervical spine tenderness or step-off deformities, no goiter, no jaundice or icterus, extraocular movements intact without pain. No submandibular induration, and no pharyngeal erythema NEURO: Alert and oriented 3, cranial nerves II through XII intact bilaterally, pupils equal round reactive to light, no focal deficits or facial asymmetry, sensation intact distally Strength 5/5 in upper and lower extremities bilaterally CARDIAC: Tachycardic and regular LUNGS: Bilateral crackles no wheezing or stridor ABDOMEN: Tense, protuberant abdomen, hepatomegaly, no rigidity SKIN: Warm and dry to touch, no abrasions, contusions, or hematomas, no lacerations, no ecchymosis, no target lesions, and without ulcers EXTREMITIES: No clubbing cyanosis, 1+ pitting edema in the lower extremities bilaterally, calves are bilaterally symmetrical, no Homans sign, no popliteal cord sign. Distal pulses equal and bilateral PSYCH: Agitated Result Diagram: 05/26/17 1625 05/26/17 1625 Results 24 hrs Laboratory Tests Test 05/26/17 16:14 05/26/17 16:25 Blood Gas Specimen Source Blood arterial Arterial Blood Date Drawn 05/26/2017 4:41:08 PM Arterial Blood pH (Temp corrected) 7.303 Arterial Blood pCO2 (Temp correct) 39.7mmhg Arterial Blood pO2 (Temp corrected) 253.6mmHG Arterial Blood HCO3 19.2mmol/L Arterial Blood Base Excess -6.6mmol/L Arterial Blood Oxygen Saturation 99.4mmHG Ottoniel Test ACCEPTAB Arterial Blood Gas Puncture Site Left Radial Arterial Blood Carboxyhemoglobin 0.3% Arterial Blood Methemoglobin 0.3% Blood Gas A-a O2 Differential 419.7mmHg Oxyhemoglobin Percent 98.8% Total Hemoglobin 14.4g/dl Blood Gas Temperature 37.0C Blood Gas Respiration Rate 16.0 Blood Gas Actual Respiration Rate 16 Blood Gas Modality VENT - AC FiO2 100.0% Blood Gas Tidal Volume 500.0mL Blood Gas Low PEEP Setting 5.0cmH2O Blood Gas Notified Whom ELIJAH JIMENEZ Blood Gas Notified Time 05/26/2017 4:56:27 PM White Blood Count 1.410^3/ul Red Blood Count 3.5110^6/ul Hemoglobin 12.2g/dl Hematocrit 34.6% Mean Corpuscular Volume 98.6fl Mean Corpuscular Hemoglobin 34.8pg Mean Corpuscular Hemoglobin Concent 35.3g/dl Red Cell Distribution Width 13.4% Platelet Count 8310^3/UL Mean Platelet Volume 11.0fl Neutrophils % % Segmented Neutrophils % (Manual) 62% Band Neutrophils % (Manual) 23% Lymphocytes % % Lymphocytes % (Manual) 11% Monocytes % % Monocytes % (Manual) 4% Eosinophils % % Basophils % % Nucleated Red Blood Cells % 0.0/100WBC Neutrophils # 10^3/ul Neutrophils # (Manual) 0.910^3/ul Band Neutrophils # 0.310^3/ul Absolute Lymphocytes (Manual) 0.110^3/ul Lymphocytes # 10^3/ul Monocytes # 10^3/ul Absolute Monocytes (Manual) 0.010^3/ul Eosinophils # 10^3/ul Basophils # 10^3/ul Nucleated Red Blood Cells # 10^3/ul Platelet Estimate DECREASED Prothrombin Time 19.9Sec Prothrombin Time Ratio 1.6 INR International Normalized Ratio 1.68 Sodium Level 128mmol/L Potassium Level 3.9mmol/L Chloride Level 97mmol/L Carbon Dioxide Level 19mmol/L Anion Gap 16 Blood Urea Nitrogen 41mg/dl Creatinine 1.95mg/dl Glucose Level 101mg/dl Calcium Level 7.9mg/dl Total Bilirubin 2.1mg/dl Direct Bilirubin 0.20mg/dl Indirect Bilirubin 1.9mg/dl Aspartate Amino Transf (AST/SGOT) 89IU/L Alanine Aminotransferase (ALT/SGPT) 64IU/L Alkaline Phosphatase 184IU/L Troponin I < 0.012ng/ml Total Protein 6.8g/dl Albumin 2.6g/dl Globulin 4.20g/dl Albumin/Globulin Ratio 0.61 Lipase 387U/L Current Medications Medications (Trade) Dose Ordered Sig/Pacheco Route PRN Reason Start Time Stop Time Status Last Admin Dose Admin Sodium Chloride (NS) 1,000 ml @ 1,000 mls/hr Q1H STAT IV 05/26/17 15:22 05/26/17 16:21 DC 05/26/17 17:35 Lidocaine (Xylocaine 1% (Mdv) 20 ml) 20 ml STK-MED ONCE .ROUTE 05/26/17 15:41 05/26/17 15:42 DC Lorazepam (Ativan) 2 mg STK-MED ONCE .ROUTE 05/26/17 16:05 05/26/17 16:06 DC Lorazepam 2 mg 2 mg ONCE ONCE IV 05/26/17 16:30 05/26/17 16:31 DC 05/26/17 16:40 Midazolam HCl (Versed) 50 ml @ 3 mls/hr ONCE STAT IV 05/26/17 16:06 05/27/17 08:45 05/26/17 16:52 Furosemide (Lasix) 40 mg ONCE ONCE IV 05/26/17 16:30 05/26/17 16:31 DC 05/26/17 16:54 Ergocalciferol (Drisdol) 50,000 unit Q7D PO 05/26/17 17:30 Furosemide (Lasix) 40 mg BID PO 05/26/17 21:00 Lactulose (Enulose) 20 gm BID PO 05/26/17 21:00 Magnesium Oxide (Mag-Ox 400) 400 mg DAILY PO 05/27/17 09:00 Pantoprazole (Protonix Tab) 40 mg AC BREAKFAST PO 05/27/17 07:00 Rifaximin (Xifaxan) 550 mg BID PO 05/26/17 21:00 Spironolactone (Aldactone) 50 mg DAILY PO 05/27/17 09:00 Procedures/MDM IV line was established patient was placed on environmental monitoring technician rhythm strip revealed a sinus tachycardia at 140 bpm with upright P and T waves. Patient was afebrile. I do not suspect sepsis. Central Line Placement by me: Patient consented, sterilely draped, full prep, gown, glove, mask, time out performed. Anesthesia: 1% lidocaine locally Location: Right subclavian vein Device: Multiple lumen Technique: Seldinger technique. Secured with suture. Results: Venous return from all ports with easy saline flush. No complications. The entire Guide wire retrieved and disposed of. Endotracheal Intubation by me: Pre assessment performed. I administered etomidate 20 mg IV 1 and rocuronium 50 mg IV 1 Pre-oxygenation performed with 100% oxygen RSI: Performed w/o complication or hypoxic events. Medications as ordered. Blade: Mac 4 ET Tube: 7.5 cm Depth: 23 cm at the lip Intubation confirmed by colorimetric CO2, equal breath sounds, quiet over the stomach. Chest X-ray 1V Interpreted by me: 3 cm above the sarah ET tube. Central line catheter in the right subclavian vein, positive cardiomegaly, bilateral pulmonary vascular congestion worse on the left compared to the right, no acute infiltrates, no pneumothorax. Patient placed on a Versed drip for continued sedation. EKG performed, read by me revealed a sinus tachycardia at 139 bpm, normal axis, narrow QRS complex, no concerning ST elevations or depressions, prolonged QT of 529 ms Critical Care: Time: 50 minutes, this was time separate from other billable procedures. Treatments/Evaluations: Close monitoring and treatment of unstable vital signs, cardiorespiratory, and neurologic status, while maintaining tight balance of fluid, respiratory, and cardiac interventions. CBC is abnormal with a leukopenia 1.4 and thrombocytopenia 83,000, electrolytes revealed dehydration and kidney injury with a BUN/creatinine of 41/2, liver function tests abnormal, troponin negative, calcium low at 7.9. Postintubation ABG performed, read by me reveals a pH of 7.3, PCO2 40, PO2 254. Metabolic acidosis. I ordered ultrasound-guided paracentesis which is being performed at the bedside , to help with respirations. Patient also received furosemide 40 mg IV 1 to help with diuresis. Departure Diagnosis: Primary Impression: Ascites due to alcoholic cirrhosis Additional Impressions: Acute respiratory failure Respiratory failure complication: hypoxia and hypercapnia Qualified Code: J96.01 - Acute respiratory failure with hypoxia and hypercapnia Acute kidney injury Dehydration Hypocalcemia Leukopenia Leukopenia type: lymphocytopenia Qualified Code: D72.810 - Lymphocytopenia Condition: Serious BROOKLYN PANTOJA MD May 26, 2017 16:25
[2017-05-26] MEDS ORDERED: FUROSEMIDE 40 MG INJ IV ONE (16:30)
[2017-05-26] MEDS ORDERED: LORAZEPAM 2 MG INJ IV ONE (16:30)
--- NOTE | 2017-05-26 16:42 | RADRPT ---
PROCEDURE: XR Chest. CLINICAL INDICATION: Status post central line placement TECHNIQUE: Single frontal chest x-ray. COMPARISON: 11/23/2016 FINDINGS: There is an endotracheal tube in place with tip 3 cm above the sarah. Right arm PICC line is in apoorva ce with tip in the superior vena cava. There is increased left perihilar and basilar infiltrates or edema with small left pleural effusion. There is increased right basilar atelectasis. Low lung volum es are present. . There is old calcified granuloma in the left lower lung.. The cardiomediastinal s ilhouette is unremarkable. The osseous structures are intact. IMPRESSION: Endotracheal tube and right arm PICC line in place. Left perihilar infiltrates or edema with small left pleural effusion. Right basilar atelectasis.. RPTAT: CC .Maurilio Rod MD, Date Time Electronically viewed and signed by .Maurilio Rod MD, on 05/26/2017 16:41 .L/
[2017-05-26 16:57] LABS: ABNORMAL IP MESSAGE 1; HEMATOCRIT 34.6 % (42.0-52.0); HEMOGLOBIN 12.2 g/dl (14.0-18.0); MEAN CORPUSCULAR HEMOGLOBIN 34.8 pg (29.0-33.0); MEAN CORPUSCULAR HGB CONC 35.3 g/dl (32.0-37.0); MEAN CORPUSCULAR VOLUME 98.6 fl (82.0-101.0); PLATELET COUNT 83 10^3/UL (140-415); POSITIVE DIFF @See below; RED BLOOD COUNT 3.51 10^6/ul (4.70-6.10); RED CELL DISTRIBUTION WIDTH 13.4 % (11.5-14.5); WHITE BLOOD COUNT 1.4 10^3/ul (4.8-10.8)
[2017-05-26 16:57] LABS: AADO2 Arterial 419.7 mmHg (7.0-24.0); Allen Test ACCEPTAB; Arterial Base Excess -6.6 mmol/L (-3.0-3); Arterial COHb 0.3 % (0.0-3.0); Arterial Fraction of Oxyhgb 98.8 % (93.0-99.0); Arterial HCO3 19.2 mmol/L (22.0-26.0); Arterial MetHb 0.3 % (0.0-1.5); Arterial Total Hemglobin 14.4 g/dl (12.0-18.0); MODE VENT - AC
--- NOTE | 2017-05-26 17:00 | HP ---
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 Pt intubated for respiratory failure and now on pressor support, the latter of which is suggestive of a shock state. Labs notable for CARLENE concerning for HRS #shock: sepsis v other ?from ?PNA schuler culture empiric broad spectrum abx #respiratory failure: ?PNA? infiltrate on CXR abx as above v 2/2 underlying sepsis? pulm cs for vent management #ascites sp LVP albumin as per AASLD guidlines #ESLD: cont home lactulose, xifaxim, PPI left message with his [facility] food services coordinator Morena at [facility] [phone] His [facility] #nonanion gap metabolic acidosis: consider RTA. urine lytes ordered #hyponatremia: 2/2 ESLD. no free water unclear why calcium ordered by the ER given calcium adjusted for low albumin is not dangerously low #CARLENE: concern for HRS hold dieretics check urine lytes if Cr not improved in AM will consult nephrology CC time 60 minutes CODE STATUS: full code (affirmed with family) HPI/ROS Admit Date/Time Admit Date/Time Hx of Present Illness CC SOB HPI 57 yo M with known EtOH cirrhosis c/b recurrent ascites requiring frequent LVPs currently undergoing transplant work up at [facility]. 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 Most recently pt was in the ER here on 05.23, had 10L ascitic fluid removed. Ascitic fluid analysis was not done nor was albumin given. Since last night pt's family states he has been very short of breath. Upon presentation to the ER pt noted to be SOB and hypotensive. Per ER notes he was intubated for airway protection. Pt intubated at time of my evaluation thus unable to obtain PMHx, meds, soc hx, fam hx or ROS directly from patient PMH/Family/Social Past Surgical History Past Surgical Hx: other Social History Smoking Status: Never smoker Exam/Review of Systems Vital Signs Vitals Vital Signs Date Time Temp Pulse Resp B/P Pulse Ox O2 Delivery O2 Flow Rate FiO2 05/26/17 16:00 140 16 100 100 05/26/17 14:40 97.5 65/29 Exam Exam intubated, fighting against vent breaths chronically ill appearing MMM no mrg lungs clear abd with ascities no rashes trace edema labs noted for inc Cr above baseline CXR with ?L sided infiltrate ALMA HERNANDEZ MD May 26, 2017 17:00
[2017-05-26 17:15] LABS: INR 1.68; PROTIME 19.9 Sec (12.2-14.2); PT RATIO 1.6
[2017-05-26 17:19] LABS: ALANINE AMINOTRANSFERASE 64 IU/L (13-69); ALBUMIN 2.6 g/dl (3.3-4.9); ALBUMIN/GLOBULIN RATIO 0.61; ALKALINE PHOSPHATASE 184 IU/L (42-121); ANION GAP 16 (8-16); ASPARTATE AMINO TRANSFERASE 89 IU/L (15-46); BILIRUBIN,INDIRECT 1.9 mg/dl (0-1.1); BILIRUBIN,TOTAL 2.1 mg/dl (0.2-1.3); BLOOD UREA NITROGEN 41 mg/dl (7-20); CALCIUM 7.9 mg/dl (8.4-10.2); CARBON DIOXIDE 19 mmol/L (21-31); CHLORIDE 97 mmol/L (97-110); CREATININE 1.95 mg/dl (0.61-1.24); GLUCOSE 101 mg/dl (70-220); POTASSIUM 3.9 mmol/L (3.5-5.1); SODIUM 128 mmol/L (135-144); TOTAL PROTEIN 6.8 g/dl (6.1-8.1)
[2017-05-26] MEDS ORDERED: ERGOCALCIFEROL 50,000 UNIT CAP PO SCH (17:30)
[2017-05-26 17:32] LABS: TROPONIN-I < 0.012 ng/ml (0.00-0.12)
[2017-05-26 17:52] LABS: MONOCYTES % (M) 4 % (0-11); PLATELET ESTIMATE DECREASED
[2017-05-26] MEDS ORDERED: CALCIUM GLUCONATE 10% 1 GM in SOD CHLORIDE 0.9% 100 ML IVPB ONE (18:00)
[2017-05-26] MEDS ORDERED: NORepinephrine 8MG/250 ML (PMX 250 ML IV SCH (18:00)
[2017-05-26] MEDS ORDERED: NORepinephrine 8MG/250 ML (PMX 250 ML ONE (18:04)
[2017-05-26] MEDS ORDERED: LIDOCAINE 1% (MPF) 5 ML VIAL ONE (18:43)
[2017-05-26] MEDS ORDERED: CEFTRIAXONE 1 GM/50 ML (PMX) 50 ML IVPB SCH (19:30)
[2017-05-26] MEDS ORDERED: VANCOMYCIN IV PER PHARMACY XX SCH (19:30)
[2017-05-26] MEDS ORDERED: ALBUMIN HUMAN 25% 50 ML INJ IV ONE (20:00)
[2017-05-26] MEDS: PIPER-TAZO 2.25 GM (PMX) 50 ML IVPB SCH (20:10)
[2017-05-26 20:58] LABS: ALBUMIN 2.5 g/dl (3.3-4.9); BILIRUBIN,DIRECT 0.2 mg/dl (0.00-0.20); BILIRUBIN,INDIRECT 1.7 mg/dl (0-1.1); BILIRUBIN,TOTAL 1.9 mg/dl (0.2-1.3); TOTAL PROTEIN 6.8 g/dl (6.1-8.1)
[2017-05-26] MEDS ORDERED: FUROSEMIDE 20 MG TAB PO SCH (21:00)
[2017-05-26] MEDS: LACTULOSE 30ML CUP PO SCH (21:00)
[2017-05-26] MEDS: RIFAXIMIN 550 MG TAB PO SCH (21:00)
--- NOTE | 2017-05-26 21:05 | RADRPT ---
PROCEDURE: Ultrasound guided paracentesis. CLINICAL INDICATION: Ascites and shortness of breath. COMPARISON: 05/23/2017. TECHNIQUE: The risks, benefits, and alternatives were explained to the patient and/or the patient's family, inc luding but not limited to bleeding, infection, pain, visceral or vascular damage, shock, and . The patient and/or the patient's family understood the risks and the alternatives and wished to pro ceed with the procedure. Informed written consent was obtained. A procedural time out was performed . The patient's name, date of , and procedure to be performed were verified. Utilizing ultrasound guidance, optimal location for entry to the peritoneal cavity was ascertained. The overlying skin was prepped and draped in the usual sterile fashion. Approximately 10 ml of 1% Xylocaine was injected locally for pain control. Using ultrasound guidance, an 8 [place] catheter wa s introduced into the peritoneal cavity in the right lower quadrant without difficulty. FINDINGS: Initial images demonstrate ascites. Approximately 8.0 liters of serous fluid was aspirated and disc arded. The patient tolerated the procedure well without complication. IMPRESSION: 1. Successful ultrasound-guided paracentesis. RPTAT: QQ .Stuart Kim MD, Date Time Electronically viewed and signed by .Stuart Kim MD, on 05/26/2017 21:05 .R/
[2017-05-27] VITALS (40 sets, daily range): BP systolic 62–118; BP diastolic 44–83; PULSE 97–124; RESP 14–26; TEMP 99.4; Ht 175.3 cm; Wt 95.0 kg
[2017-05-27] MEDS: ACETAMINOPHEN 650 MG SUPP PR PRN (02:02)
[2017-05-27] MEDS: VANCOMYCIN 1 GM in NS 250 ML IVPB SCH ×2 (02:04→07:16)
[2017-05-27 03:14] LABS: ADD UMIC YES; UR AMORPHOUS CRYSTAL FEW /HPF (NONE SEEN); UR ASCORBIC ACID NEGATIVE (NEGATIVE); UR BACTERIA FEW /HPF (NONE SEEN); UR BILIRUBIN (Dip) NEGATIVE (NEGATIVE); UR BLOOD (Dip) 2+ mg/dL (NEGATIVE); UR CLARITY CLOUDY (CLEAR); UR COLOR AMBER (YELLOW); UR GLUCOSE (Dip) NEGATIVE (NEGATIVE); UR KETONES (Dip) NEGATIVE (NEGATIVE); UR LEUKOCYTE ESTERASE (Dip) NEGATIVE Leu/ul (NEGATIVE); UR MUCUS MODERATE /HPF (NONE SEEN); UR NITRITE (Dip) NEGATIVE (NEGATIVE); UR RBC 4 /HPF (0-5); UR SPECIFIC GRAVITY (Dip) 1.023 (1.003-1.030); UR SQUAMOUS EPITHELIAL CELL FEW /HPF (FEW); UR TOTAL PROTEIN (Dip) 1+ mg/dl (NEGATIVE); UR UROBILINOGEN (Dip) NEGATIVE (NEGATIVE)
[2017-05-27 04:02] LABS: POTASSIUM,URINE RANDOM 69.1 mmol/L (25-125)
[2017-05-27] MEDS ORDERED: PHENYLephrine 20MG IN 250 ML 250 ML IV SCH (05:30)
[2017-05-27 05:44] LABS: ABNORMAL IP MESSAGE 1; HEMATOCRIT 28.3 % (42.0-52.0); HEMOGLOBIN 10.1 g/dl (14.0-18.0); MEAN CORPUSCULAR HEMOGLOBIN 35.3 pg (29.0-33.0); MEAN CORPUSCULAR HGB CONC 35.7 g/dl (32.0-37.0); MEAN PLATELET VOLUME 10.8 fl (7.4-10.4); PLATELET COUNT 64 10^3/UL (140-415); POSITIVE DIFF @See below; RED BLOOD COUNT 2.86 10^6/ul (4.70-6.10); RED CELL DISTRIBUTION WIDTH 13.6 % (11.5-14.5); WHITE BLOOD COUNT 3.2 10^3/ul (4.8-10.8)
[2017-05-27 06:34] LABS: ALBUMIN 2.7 g/dl (3.3-4.9); ALBUMIN/GLOBULIN RATIO 0.79; BILIRUBIN,DIRECT 0.9 mg/dl (0.00-0.20); BILIRUBIN,INDIRECT 3.3 mg/dl (0-1.1); BILIRUBIN,TOTAL 4.2 mg/dl (0.2-1.3); CALCIUM 8.3 mg/dl (8.4-10.2); CREATININE 2.31 mg/dl (0.61-1.24); TOTAL PROTEIN 6.1 g/dl (6.1-8.1)
[2017-05-27] MEDS: PANTOPRAZOLE (EC) 40 MG TAB PO SCH (07:00)
[2017-05-27] MEDS ORDERED: CIPROFLOXACIN 400MG/D5W 200 ML IVPB ONE (07:30)
[2017-05-27] MEDS: PIPER-TAZO 2.25 GM (PMX) 50 ML IVPB SCH ×3 (07:51→22:17)
[2017-05-27] MEDS: LACTULOSE 30ML CUP PO SCH ×2 (08:33→22:17)
[2017-05-27] MEDS: MAGNESIUM OXIDE 400 MG TAB PO SCH (08:40)
[2017-05-27] MEDS: RIFAXIMIN 550 MG TAB PO SCH ×2 (08:46→22:17)
[2017-05-27] MEDS ORDERED: SPIRONOLACTONE 50 MG TAB PO SCH (09:00)
[2017-05-27 09:17] LABS: ANISOCYTOSIS 2+ (0-0); GIANT THROMBO% (M) 4 % (0-0); HYPOCHROMASIA 1+ (0-0); METAMYELOCYTES %M 6 % (0-0); MONOCYTES % (M) 1 % (0-11); PLATELET ESTIMATE DECREASED; POIKILOCYTOSIS 1+ (0-0); POLYCHROMASIA 1+ (0-0)
[2017-05-27] MEDS ORDERED: SODIUM CHLORIDE 0.9% 1L BAG IV* STA (10:46)
[2017-05-27 10:48] LABS: AADO2 Arterial 121.9 mmHg (7.0-24.0); Allen Test ACCEPTAB; Arterial Base Excess -10.5 mmol/L (-3.0-3); Arterial COHb 0.3 % (0.0-3.0); Arterial Fraction of Oxyhgb 89.5 % (93.0-99.0); Arterial HCO3 13.5 mmol/L (22.0-26.0); Arterial MetHb 0.2 % (0.0-1.5); Arterial Total Hemglobin 11.8 g/dl (12.0-18.0); MODE VENT - AC
[2017-05-27] MEDS: PHENYLephrine 80 MG in DEXTROSE 5% 492 ML IV SCH ×2 (15:05→20:09)
[2017-05-27] MEDS: MIDAZOLAM (DRIP) 50 mg/50 mL 50 ML IV SCH (15:30)
[2017-05-27] MEDS: NORepinephrine 32 MG in DEXTROSE 5% 218 ML IV SCH (15:52)
--- NOTE | 2017-05-27 17:34 | PN ---
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 Intubated for hypoxic respiratory failure. Pt with clear evidence of septic shock 2/2 GNR bacteremia #septic shock from GNR bacteremia, source peritonitis v urine v other despite fluid studies being ordered, appears ascitic fluid discarded yesterday by IR cont zosyn sp weight based fluids repeat cultures #respiratory failure: likely from sepsis cont zosyn pulm cs for vent management #ascites sp LVP: sp albumin #ESLD: cont home lactulose, xifaxim, PPI left message with his [facility] product development coordinator on 05.26 Morena at [facility] [phone] His [facility] #nonanion gap metabolic acidosis: consider RTA. urine lytes ordered #hyponatremia: 2/2 ESLD. #CARLENE: concern for HRS holding dieretics check urine lytes nephrology consult placed #FEN RD cs to start TFs CC time 30 minutes CODE STATUS: full code (affirmed with family) Subjective 24 Hr Interval Summary Free Text/Dictation blood cultures positive, trying to wean down oxygen Exam/Review of Systems Vital Signs Vitals Vital Signs Date Time Temp Pulse Resp B/P Pulse Ox O2 Delivery O2 Flow Rate FiO2 05/27/17 17:00 97 14 114/71 99 Mechanical Ventilator 05/27/17 16:55 40 05/27/17 16:00 97.7 Intake and Output 05/26/17 05/26/17 05/27/17 15:00 23:00 07:00 Intake Total 1410 ml 250 ml Balance 1410 ml 250 ml Exam intubated and sedated no mrg lungs clear still with ascites roland draining yellow urine blood cultures with GNR bacteremia Results Result Diagram: 05/27/17 0520 05/27/17 0520 Results 24 hrs Laboratory Tests Test 05/26/17 18:00 05/27/17 02:17 05/27/17 05:20 05/27/17 10:00 Total Bilirubin 1.9 H 4.2 #H Direct Bilirubin 0.20 0.90 #H Indirect Bilirubin 1.7 H 3.3 H Aspartate Amino Transf (AST/SGOT) 88 H 74 H Alanine Aminotransferase (ALT/SGPT) 64 52 Alkaline Phosphatase 177 H 84 # Total Protein 6.8 6.1 Albumin 2.5 L 2.7 L Urine Color BJORN Urine Clarity CLOUDY A Urine pH 5.0 Urine Specific Heidrick 1.023 Urine Ketones NEGATIVE Urine Nitrite NEGATIVE Urine Bilirubin NEGATIVE Urine Urobilinogen NEGATIVE Urine Leukocyte Esterase NEGATIVE Urine Microscopic RBC 4 Urine Microscopic WBC 6 H Urine Squamous Epithelial Cells FEW Urine Amorphous Crystals FEW A Urine Bacteria FEW A Urine Hyaline Casts MODERATE Urine Mucus MODERATE Urine Hemoglobin 2+ H Urine Random Sodium < 5 L Urine Random Potassium 69.1 Urine Glucose NEGATIVE Urine Total Protein 1+ H White Blood Count 3.2 #L Red Blood Count 2.86 L Hemoglobin 10.1 L Hematocrit 28.3 L Mean Corpuscular Volume 99.0 Mean Corpuscular Hemoglobin 35.3 H Mean Corpuscular Hemoglobin Concent 35.7 Red Cell Distribution Width 13.6 Platelet Count 64 #L Mean Platelet Volume 10.8 H Neutrophils % Segmented Neutrophils % (Manual) 24 L Band Neutrophils % (Manual) 51 H Lymphocytes % Lymphocytes % (Manual) 14 L Monocytes % Monocytes % (Manual) 1 Eosinophils % Basophils % Metamyelocytes % (manual) 6 H Nucleated Red Blood Cells % 0.0 Neutrophils # Neutrophils # (Manual) 0.8 L Band Neutrophils # 1.6 H Absolute Lymphocytes (Manual) 0.4 L Lymphocytes # Monocytes # Absolute Monocytes (Manual) 0.0 L Eosinophils # Basophils # Metamyelocytes # 0.1 H Nucleated Red Blood Cells # Platelet Estimate DECREASED Giant Platelets 4 H Polychromasia 1+ Hypochromasia 1+ Poikilocytosis 1+ Anisocytosis 2+ Macrocytosis 1+ Sodium Level 129 L Potassium Level 5.0 Chloride Level 99 Carbon Dioxide Level 15 L Anion Gap 20 H Blood Urea Nitrogen 46 H Creatinine 2.31 H Glucose Level 63 #L Calcium Level 8.3 L Globulin 3.40 H Albumin/Globulin Ratio 0.79 Lactic Acid Level 6.8 *H Test 05/27/17 10:44 05/27/17 13:00 05/27/17 15:49 Blood Gas Specimen Source Blood arterial Arterial Blood Date Drawn 05/27/2017 10:42:25 AM Arterial Blood pH (Temp corrected) 7.349 L Arterial Blood pCO2 (Temp correct) 25.0 L Arterial Blood pO2 (Temp corrected) 62.6 L Arterial Blood HCO3 13.5 L Arterial Blood Base Excess -10.5 L Arterial Blood Oxygen Saturation 89.9 L Ottoniel Test ACCEPTAB Arterial Blood Gas Puncture Site Right Radial Arterial Blood Carboxyhemoglobin 0.3 Arterial Blood Methemoglobin 0.2 Blood Gas A-a O2 Differential 121.9 H Oxyhemoglobin Percent 89.5 L Total Hemoglobin 11.8 L Blood Gas Temperature 37.0 Blood Gas Respiration Rate 12.0 Blood Gas Actual Respiration Rate 24 Blood Gas Modality VENT - AC FiO2 30.0 Blood Gas Tidal Volume 500.0 Blood Gas Low PEEP Setting 5.0 Blood Gas Notified Whom RT Blood Gas Notified Time 05/27/2017 10:48:08 AM Lactic Acid Level 6.4 *H 5.3 *H Medications Medications Current Medications Ergocalciferol (Drisdol) 50,000 unit Q7D PO ; Start 05/26/17 at 17:30 Lactulose (Enulose) 20 gm BID PO ; Start 05/26/17 at 21:00 Magnesium Oxide (Mag-Ox 400) 400 mg DAILY PO ; Start 05/27/17 at 09:00 Rifaximin 550 mg 550 mg BID PO ; Start 05/26/17 at 21:00 Piperacillin Sod/ Tazobactam Sod (Zosyn 2.25gm/ 50ml (Pmx)) 50 ml @ 100 mls/hr Q8 IVPB Last administered on 05/27/17 14:49; Admin Dose 100 MLS/HR; Start at 20:00 Acetaminophen 650 mg 650 mg Q6H PRN [place] FEVER Last administered on 05/27/17 02 :02; Admin Dose 650 MG; Start 05/27/17 at 02:00 Phenylephrine HCl 80 mg/Dextrose 500 ml @ 37.5 mls/hr TITRATE IV Last administered on 05/27/17 15:05; Admin Dose 105 MLS/HR; Start 05/27/17 at 15: 00 Midazolam HCl 50 ml @ 1 mls/hr TITRATE IV Last administered on 05/27/17 15:30 ; Admin Dose 4 MLS/HR; Start 05/27/17 at 15:30 Norepinephrine/ Dextrose (Levophed/D5W) 250 ml @ 0.46 mls/hr TITRATE IV Last administered on 05/27/17t 15:52; Admin Dose 14.06 MLS/HR; Start 05/27/17 at 15 :30 ALMA HERNANDEZ MD May 27, 2017 17:34
--- NOTE | 2017-05-27 21:45 | RADRPT ---
PROCEDURE: XR Abdomen CLINICAL INDICATION: NG tube placement TECHNIQUE: An AP supine radiograph of the abdomen was submitted. COMPARISON: None FINDINGS: An NG tube is in satisfactorily placed with the tip in the stomach. A Crews catheter is seen in the bladder. The stomach is moderately distended with air. A paucity of gas is seen through the abdomen. No pathological calcification is identified. Mild diffuse degenerative spine changes are noted. There is atelectasis or infiltrate within the left lower lobe and discoid atelectasis at the right l vahe base. IMPRESSION: 1. NG tube satisfactory position. 2. Moderate gaseous distension of the stomach with a paucity of gas within bowel. 3. Atelectasis or infiltrate involve the left lower lobe with discoid atelectasis seen at the right lung base. Physician Guanakito Date Time Electronically viewed and signed by Physician Guanakito on 05/27/2017 21:44 /
[2017-05-28] VITALS (91 sets, daily range): BP systolic 67–125; BP diastolic 47–73; PULSE 106–128; RESP 16–27
[2017-05-28] MEDS: MIDAZOLAM (DRIP) 50 mg/50 mL 50 ML IV SCH ×3 (03:12→23:31)
[2017-05-28] MEDS: PHENYLephrine 80 MG in DEXTROSE 5% 492 ML IV SCH (03:16)
[2017-05-28 04:35] LABS: ABNORMAL IP MESSAGE 1; HEMATOCRIT 30.3 % (42.0-52.0); HEMOGLOBIN 10.9 g/dl (14.0-18.0); MEAN CORPUSCULAR HEMOGLOBIN 35.5 pg (29.0-33.0); MEAN CORPUSCULAR VOLUME 98.7 fl (82.0-101.0); MEAN PLATELET VOLUME 10.8 fl (7.4-10.4); PLATELET COUNT 57 10^3/UL (140-415); POSITIVE DIFF @See below; RED BLOOD COUNT 3.07 10^6/ul (4.70-6.10); RED CELL DISTRIBUTION WIDTH 13.4 % (11.5-14.5); WHITE BLOOD COUNT 10.5 10^3/ul (4.8-10.8)
[2017-05-28] MEDS: PIPER-TAZO 2.25 GM (PMX) 50 ML IVPB SCH ×3 (05:01→21:46)
[2017-05-28 05:04] LABS: ALBUMIN 2.1 g/dl (3.3-4.9); ALBUMIN/GLOBULIN RATIO 0.61; BILIRUBIN,DIRECT 0.8 mg/dl (0.00-0.20); BILIRUBIN,INDIRECT 2.9 mg/dl (0-1.1); BILIRUBIN,TOTAL 3.7 mg/dl (0.2-1.3); CALCIUM 7.8 mg/dl (8.4-10.2); CREATININE 1.66 mg/dl (0.61-1.24); POTASSIUM 4.8 mmol/L (3.5-5.1); TOTAL PROTEIN 5.5 g/dl (6.1-8.1)
[2017-05-28] MEDS: PANTOPRAZOLE (EC) 40 MG TAB PO SCH (06:43)
[2017-05-28] MEDS ORDERED: PHENYLephrine 160 MG in DEXTROSE 5% 484 ML IV SCH (07:00)
[2017-05-28 08:05] LABS: ANISOCYTOSIS 1+ (0-0); BURR CELLS 2+ (0-0); EOSINOPHILS % (M) 1 % (0-7); MONOCYTES % (M) 7 % (0-11); PLATELET ESTIMATE DECREASED; POIKILOCYTOSIS 2+ (0-0); POLYCHROMASIA 1+ (0-0)
[2017-05-28] MEDS: ACETAMINOPHEN 650 MG SUPP PR PRN (08:26)
[2017-05-28] MEDS: RIFAXIMIN 550 MG TAB PO SCH ×2 (08:26→21:46)
[2017-05-28] MEDS: MAGNESIUM OXIDE 400 MG TAB PO SCH (08:26)
[2017-05-28] MEDS: LACTULOSE 30ML CUP PO SCH ×2 (08:26→21:46)
[2017-05-28] MEDS: NORepinephrine 32 MG in DEXTROSE 5% 218 ML IV SCH (08:28)
--- NOTE | 2017-05-28 08:53 | CONS ---
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 Pt intubated for respiratory failure and now on pressor support, the latter of which is suggestive of a shock state. Labs notable for CARLENE He is currently in icu and on a vent arf is due to intravascular volume depletion. No evidence of HRS I will examine his urinary sediment microscopically will also check urine electrolyte and urea he will need aggressive volume resuscitation in order to avoid HRS and other complications will start on crystaloids and colloids no indication for renal replacement therapy #shock: sepsis v other ?from ?PNA schuler culture empiric broad spectrum abx #respiratory failure: ?PNA? infiltrate on CXR abx as above v 2/2 underlying sepsis? pulm cs for vent management #ascites sp LVP albumin as per AASLD guidlines # cirrhosis: cont home lactulose, xifaxim, PPI Hx of Present Illness CC SOB HPI 57 yo M with known EtOH cirrhosis c/b recurrent ascites requiring frequent LVPs currently undergoing transplant work up at [facility]. 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 Most recently pt was in the ER here on 05.23, had 10L ascitic fluid removed. Ascitic fluid analysis was not done nor was albumin given. Since last night pt's family states he has been very short of breath. Upon presentation to the ER pt noted to be SOB and hypotensive. He was intubated for acute resp failure We were asked to assist with management of his renal failure PMH/Family/Social Past Surgical History Past Surgical Hx: other Social History Smoking Status: Never smoker Exam intubated, fighting against vent breaths chronically ill appearing MMM no mrg lungs clear abd with ascities no rashes trace edema Past Surgical History Past Surgical Hx: other Social History Smoking Status: Never smoker Exam/Review of Systems Vital Signs Vitals Vital Signs Date Time Temp Pulse Resp B/P Pulse Ox O2 Delivery O2 Flow Rate FiO2 05/28/17 06:00 122 20 79/54 96 Mechanical Ventilator 05/28/17 05:00 40 05/28/17 04:00 100.8 Intake and Output 05/27/17 05/27/17 05/28/17 15:00 23:00 07:00 Intake Total 913.25 ml 697.0 ml Output Total 750 ml 890 ml 370 ml Balance -750 ml 23.25 ml 327.0 ml Results Result Diagram: 05/28/17 0400 05/28/17 0423 Results 24 hrs Laboratory Tests Test 05/27/17 10:00 05/27/17 10:44 05/27/17 13:00 05/27/17 15:49 Lactic Acid Level 6.8 *H 6.4 *H 5.3 *H Blood Gas Specimen Source Blood arterial Arterial Blood Date Drawn 05/27/2017 10:42:25 AM Arterial Blood pH (Temp corrected) 7.349 L Arterial Blood pCO2 (Temp correct) 25.0 L Arterial Blood pO2 (Temp corrected) 62.6 L Arterial Blood HCO3 13.5 L Arterial Blood Base Excess -10.5 L Arterial Blood Oxygen Saturation 89.9 L Ottoniel Test ACCEPTAB Arterial Blood Gas Puncture Site Right Radial Arterial Blood Carboxyhemoglobin 0.3 Arterial Blood Methemoglobin 0.2 Blood Gas A-a O2 Differential 121.9 H Oxyhemoglobin Percent 89.5 L Total Hemoglobin 11.8 L Blood Gas Temperature 37.0 Blood Gas Respiration Rate 12.0 Blood Gas Actual Respiration Rate 24 Blood Gas Modality VENT - AC FiO2 30.0 Blood Gas Tidal Volume 500.0 Blood Gas Low PEEP Setting 5.0 Blood Gas Notified Whom RT Blood Gas Notified Time 05/27/2017 10:48:08 AM Test 05/27/17 17:30 05/28/17 04:00 05/28/17 04:23 Bedside Glucose 95 White Blood Count 10.5 # Red Blood Count 3.07 L Hemoglobin 10.9 L Hematocrit 30.3 L Mean Corpuscular Volume 98.7 Mean Corpuscular Hemoglobin 35.5 H Mean Corpuscular Hemoglobin Concent 36.0 Red Cell Distribution Width 13.4 Platelet Count 57 L Mean Platelet Volume 10.8 H Neutrophils % Segmented Neutrophils % (Manual) 54 Band Neutrophils % (Manual) 34 H Lymphocytes % Lymphocytes % (Manual) 5 L Monocytes % Monocytes % (Manual) 7 Eosinophils % Eosinophils % (Manual) 1 Basophils % Nucleated Red Blood Cells % 0.0 Neutrophils # Neutrophils # (Manual) 6.0 Band Neutrophils # 3.5 H Absolute Lymphocytes (Manual) 0.5 L Lymphocytes # Monocytes # Absolute Monocytes (Manual) 0.7 Eosinophils # Basophils # Nucleated Red Blood Cells # Dohle Bodies 1+ Platelet Estimate DECREASED Polychromasia 1+ Poikilocytosis 2+ Anisocytosis 1+ Macrocytosis 1+ Sodium Level 127 L Potassium Level 4.8 Chloride Level 101 Carbon Dioxide Level 18 L Anion Gap 13 # Blood Urea Nitrogen 37 H Creatinine 1.66 H Glucose Level 81 Calcium Level 7.8 L Total Bilirubin 3.7 H Direct Bilirubin 0.80 H Indirect Bilirubin 2.9 H Aspartate Amino Transf (AST/SGOT) 138 #H Alanine Aminotransferase (ALT/SGPT) 68 Alkaline Phosphatase 55 Total Protein 5.5 L Albumin 2.1 L Globulin 3.40 H Albumin/Globulin Ratio 0.61 Medications Medications Current Medications Ergocalciferol (Drisdol) 50,000 unit Q7D PO ; Start 05/26/17 at 17:30 Lactulose (Enulose) 20 gm BID PO Last administered on 05/28/17 08:26; Admin Dose 20 GM; Start 05/26/17 at 21:00 Magnesium Oxide (Mag-Ox 400) 400 mg DAILY PO Last administered on 05/28/17 08 :26; Admin Dose 400 MG; Start 05/27/17 at 09:00 Rifaximin 550 mg 550 mg BID PO Last administered on 05/28/17 08:26; Admin Dose 550 MG; Start 05/26/17 at 21:00 Piperacillin Sod/ Tazobactam Sod (Zosyn 2.25gm/ 50ml (Pmx)) 50 ml @ 100 mls/hr Q8 IVPB Last administered on 05/28/17 05:01; Admin Dose 100 MLS/HR; Start at 20:00 Acetaminophen 650 mg 650 mg Q6H PRN [place] FEVER Last administered on 05/28/17 08 :26; Admin Dose 650 MG; Start 05/27/17 at 02:00 Midazolam HCl 50 ml @ 1 mls/hr TITRATE IV Last administered on 05/28/17 03:12 ; Admin Dose 6 MLS/HR; Start 05/27/17 at 15:30 Norepinephrine 32 mg/Dextrose 250 ml @ 0.46 mls/hr TITRATE IV Last administered on 05/28/17 08:28; Admin Dose 14.06 MLS/HR; Start 05/27/17 at 15 :30 Phenylephrine HCl/ Dextrose (Kevyn-Syneph/D5W) 500 ml @ 18.75 mls/ hr TITRATE IV Last administered on 05/28/17t 08:28; Admin Dose 37.5 MLS/HR; Start at 07:00 SADIQ DALE DO May 28, 2017 08:53
[2017-05-28] MEDS: ALBUMIN HUMAN 25% 100 ML IV SCH ×3 (09:09→17:18)
[2017-05-28] MEDS: DEXTROSE 5%-0.9% NACL 1,000 ML IV SCH ×2 (09:09→17:12)
[2017-05-28] MEDS ORDERED: ACETAMINOPHEN 650MG/20.3ML CUP NGT PRN (10:30)
--- NOTE | 2017-05-28 11:27 | CONS ---
Date/Time of Note Date/Time of Note DATE: 05/28/17 TIME: 11:27 Consultation Date/Type/Reason Admit Date/Time Date of Consultation: May 28, 2017 Type of Consultation: Pulmonary/critical care Hx of Present Illness Consult note dictated #[id number] Past Surgical History Past Surgical Hx: other Social History Smoking Status: Never smoker Exam/Review of Systems Vital Signs Vitals Vital Signs Date Time Temp Pulse Resp B/P Pulse Ox O2 Delivery O2 Flow Rate FiO2 05/28/17 08:00 40 05/28/17 08:00 121 05/28/17 06:00 20 79/54 96 Mechanical Ventilator 05/28/17 04:00 100.8 Intake and Output 05/27/17 05/27/17 05/28/17 15:00 23:00 07:00 Intake Total 913.25 ml 697.0 ml Output Total 750 ml 890 ml 370 ml Balance -750 ml 23.25 ml 327.0 ml Results Result Diagram: 05/28/17 0400 05/28/17 0423 Results 24 hrs Laboratory Tests Test 05/27/17 13:00 05/27/17 15:49 05/27/17 17:30 05/28/17 04:00 Lactic Acid Level 6.4 *H 5.3 *H Bedside Glucose 95 White Blood Count 10.5 # Red Blood Count 3.07 L Hemoglobin 10.9 L Hematocrit 30.3 L Mean Corpuscular Volume 98.7 Mean Corpuscular Hemoglobin 35.5 H Mean Corpuscular Hemoglobin Concent 36.0 Red Cell Distribution Width 13.4 Platelet Count 57 L Mean Platelet Volume 10.8 H Neutrophils % Segmented Neutrophils % (Manual) 54 Band Neutrophils % (Manual) 34 H Lymphocytes % Lymphocytes % (Manual) 5 L Monocytes % Monocytes % (Manual) 7 Eosinophils % Eosinophils % (Manual) 1 Basophils % Nucleated Red Blood Cells % 0.0 Neutrophils # Neutrophils # (Manual) 6.0 Band Neutrophils # 3.5 H Absolute Lymphocytes (Manual) 0.5 L Lymphocytes # Monocytes # Absolute Monocytes (Manual) 0.7 Eosinophils # Basophils # Nucleated Red Blood Cells # Dohle Bodies 1+ Platelet Estimate DECREASED Polychromasia 1+ Poikilocytosis 2+ Anisocytosis 1+ Macrocytosis 1+ Test 05/28/17 04:23 Sodium Level 127 L Potassium Level 4.8 Chloride Level 101 Carbon Dioxide Level 18 L Anion Gap 13 # Blood Urea Nitrogen 37 H Creatinine 1.66 H Glucose Level 81 Calcium Level 7.8 L Total Bilirubin 3.7 H Direct Bilirubin 0.80 H Indirect Bilirubin 2.9 H Aspartate Amino Transf (AST/SGOT) 138 #H Alanine Aminotransferase (ALT/SGPT) 68 Alkaline Phosphatase 55 Total Protein 5.5 L Albumin 2.1 L Globulin 3.40 H Albumin/Globulin Ratio 0.61 Medications Medications Current Medications Ergocalciferol (Drisdol) 50,000 unit Q7D PO ; Start 05/26/17 at 17:30 Lactulose (Enulose) 20 gm BID PO Last administered on 05/28/17 08:26; Admin Dose 20 GM; Start 05/26/17 at 21:00 Magnesium Oxide (Mag-Ox 400) 400 mg DAILY PO Last administered on 05/28/17 08 :26; Admin Dose 400 MG; Start 05/27/17 at 09:00 Rifaximin 550 mg 550 mg BID PO Last administered on 05/28/17 08:26; Admin Dose 550 MG; Start 05/26/17 at 21:00 Piperacillin Sod/ Tazobactam Sod (Zosyn 2.25gm/ 50ml (Pmx)) 50 ml @ 100 mls/hr Q8 IVPB Last administered on 05/28/17 05:01; Admin Dose 100 MLS/HR; Start at 20:00 Acetaminophen 650 mg 650 mg Q6H PRN [place] FEVER Last administered on 05/28/17 08 :26; Admin Dose 650 MG; Start 05/27/17 at 02:00 Midazolam HCl 50 ml @ 1 mls/hr TITRATE IV Last administered on 05/28/17 03:12 ; Admin Dose 6 MLS/HR; Start 05/27/17 at 15:30 Norepinephrine 32 mg/Dextrose 250 ml @ 0.46 mls/hr TITRATE IV Last administered on 05/28/17 08:28; Admin Dose 14.06 MLS/HR; Start 05/27/17 at 15 :30 Phenylephrine HCl 160 mg/Dextrose 500 ml @ 18.75 mls/ hr TITRATE IV Last administered on 05/28/17 08:28; Admin Dose 37.5 MLS/HR; Start 05/28/17 at 07: 00 Dextrose/Sodium Chloride 1,000 ml @ 125 mls/hr Q8H IV Last administered on 09:09; Admin Dose 125 MLS/HR; Start 05/28/17 at 09:00 Albumin Human (Albumin Human 25%) 100 ml @ 100 mls/hr Q6 IV Last administered on 05/28/17 09:09; Admin Dose 100 MLS/HR; Start 05/28/17 at 09:00; Stop at 00:59 Acetaminophen (Tylenol Liquid) 650 mg Q4H PRN NGT PAIN AND OR ELEVATED TEMP; Start 05/28/17 at 10:30 BRODIE VOGEL May 28, 2017 11:27
--- NOTE | 2017-05-28 12:00 | CONS ---
DATE OF ADMISSION: 05/26/2017 DATE OF CONSULTATION: 05/28/2017 TIME OF CONSULTATION: 05/28/2017 at 11:57 a.m. REASON FOR CONSULTATION: Respiratory failure and shock. HISTORY OF PRESENT ILLNESS: Mr. Adams is a 57-year-old male who was admitted on the of this month with complaints of increasing abdominal distention. Patient was admitted and underwent l arge volume paracentesis yesterday. After that, the patient became hypotensive and had to be transf erred to ICU and required intubation. By the time I saw the patient, the patient is orally intubate d on high dose pressor support and sedated. History was obtained from medical records. PAST MEDICAL HISTORY: 1. Advanced cirrhosis of liver with recurrent ascites. 2. History of pneumonia. MEDICATIONS: 1. The patient is currently on: Phenylephrine drip at 200 mcg per minute, Levophed 30 mcg per arturo te, Versed 5 mg per hour. Albumin q.6h. 25% D5 normal saline at 125 mL per hour. 2. Rifaximin 550 mg b.i.d. 2. Protonix 40 mg daily. 3. Lactulose 20 grams b.i.d. ALLERGIES: NONE. SOCIAL HISTORY: Positive for heavy alcohol abuse. FAMILY HISTORY: Not available. OCCUPATIONAL HISTORY: Not available. REVIEW OF SYSTEMS: Unable to be obtained. PHYSICAL EXAMINATION: GENERAL: Elderly male, orally intubated, sedated, currently in no distress. VITAL SIGNS: Temperature is 98 degrees Fahrenheit, respiratory rate is 20 per minute, heart rate 12 0 per minute, blood pressure is 80/60, O2 saturation is 92%. Ventilator settings are AC of 12, tida l volume 500, PEEP of 5 35% FIO2. HEENT: Supple neck, no JVD, no lymphadenopathy, midline trachea, no thyromegaly. Patient has bilat eral intraocular lens implants. Orally intubated. CHEST: Diminished but clear breath sounds. HEART: S1, S2 audible. No Tachycardic, regular rhythm. ABDOMEN: Soft, slightly protuberant with very minimal fluid thrill. Bowel sounds are absent. EXTREMITIES: No edema. NEUROLOGIC: Patient is sedated, chest x-ray was reviewed from the of this month, which is esse ntially unremarkable. LABORATORY DATA: Today. Sodium is 127, potassium 4.8, chloride 101, bicarbonate 18, glucose 81, BU N 37, creatinine 1.6. White count 10.5, hemoglobin 10.9, platelet count of 57,000. ABG from yester day at 10:44 a.m. on AC on current ventilator settings pH 7.34, CO2 of 25, pO2 of 62, O2 sat 89.9%. ASSESSMENT AND PLAN: 1. Patient admitted with advanced alcoholic liver cirrhosis, status post large volume paracentesis with respiratory failure now. 2. Profound shock. 3. Severe thrombocytopenia without any overt bleeding. 4. Clinically, low suspicion of any infective process. RECOMMENDATIONS: Continue current supportive care, monitor platelet count. Monitor renal function. The patient possibly is heading towards tobacco hepatorenal syndrome. Prognosis is very guarded. Dictated By: BRODIE PATEL/VANESA Conf#: [id number] DID#: [id number]
--- NOTE | 2017-05-28 15:27 | PN ---
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 Intubated for hypoxic respiratory failure. Pt with clear evidence of septic shock 2/2 GNR bacteremia #septic shock from GNR bacteremia, source peritonitis v urine v other despite fluid studies being ordered, appears ascitic fluid discarded yesterday by IR cont zosyn repeat cultures #respiratory failure: likely from sepsis cont zosyn pulm on cs for vent management #CARLENE: concern for HRS holding diuretics nephrology on consult #ascites sp LVP: sp albumin #ESLD: cont home lactulose, xifaxim, PPI left message with his [facility] dental hygienist mobile coordinator on 05.26 [place] at [facility] [phone] His [facility] #hyponatremia: 2/2 ESLD. appreciate nephrology assistance with IVFs #FEN TFs CC time 30 minutes CODE STATUS: full code (affirmed with family most recently 11.18) Subjective 24 Hr Interval Summary Free Text/Dictation pressor requirement slightly improved from last night Exam/Review of Systems Vital Signs Vitals Vital Signs Date Time Temp Pulse Resp B/P Pulse Ox O2 Delivery O2 Flow Rate FiO2 05/28/17 13:29 113 21 97 30 05/28/17 12:30 99.5 113/71 05/28/17 12:00 Mechanical Ventilator Intake and Output 05/27/17 05/27/17 05/28/17 14:59 22:59 06:59 Intake Total 777.75 ml 753.5 ml Output Total 750 ml 830 ml 430 ml Balance -750 ml -52.25 ml 323.5 ml Exam intubated no mrg lungs clear abd with ascites no rashes Results Result Diagram: 05/28/17 0400 05/28/17 0423 Results 24 hrs Laboratory Tests Test 05/27/17 15:49 05/27/17 17:30 05/28/17 04:00 05/28/17 04:23 Lactic Acid Level 5.3 *H Bedside Glucose 95 White Blood Count 10.5 # Red Blood Count 3.07 L Hemoglobin 10.9 L Hematocrit 30.3 L Mean Corpuscular Volume 98.7 Mean Corpuscular Hemoglobin 35.5 H Mean Corpuscular Hemoglobin Concent 36.0 Red Cell Distribution Width 13.4 Platelet Count 57 L Mean Platelet Volume 10.8 H Neutrophils % Segmented Neutrophils % (Manual) 54 Band Neutrophils % (Manual) 34 H Lymphocytes % Lymphocytes % (Manual) 5 L Monocytes % Monocytes % (Manual) 7 Eosinophils % Eosinophils % (Manual) 1 Basophils % Nucleated Red Blood Cells % 0.0 Neutrophils # Neutrophils # (Manual) 6.0 Band Neutrophils # 3.5 H Absolute Lymphocytes (Manual) 0.5 L Lymphocytes # Monocytes # Absolute Monocytes (Manual) 0.7 Eosinophils # Basophils # Nucleated Red Blood Cells # Dohle Bodies 1+ Platelet Estimate DECREASED Polychromasia 1+ Poikilocytosis 2+ Anisocytosis 1+ Macrocytosis 1+ Sodium Level 127 L Potassium Level 4.8 Chloride Level 101 Carbon Dioxide Level 18 L Anion Gap 13 # Blood Urea Nitrogen 37 H Creatinine 1.66 H Glucose Level 81 Calcium Level 7.8 L Total Bilirubin 3.7 H Direct Bilirubin 0.80 H Indirect Bilirubin 2.9 H Aspartate Amino Transf (AST/SGOT) 138 #H Alanine Aminotransferase (ALT/SGPT) 68 Alkaline Phosphatase 55 Total Protein 5.5 L Albumin 2.1 L Globulin 3.40 H Albumin/Globulin Ratio 0.61 Medications Medications Current Medications Ergocalciferol (Drisdol) 50,000 unit Q7D PO ; Start 05/26/17 at 17:30 Lactulose (Enulose) 20 gm BID PO Last administered on 05/28/17 08:26; Admin Dose 20 GM; Start 05/26/17 at 21:00 Magnesium Oxide (Mag-Ox 400) 400 mg DAILY PO Last administered on 05/28/17 08 :26; Admin Dose 400 MG; Start 05/27/17 at 09:00 Rifaximin 550 mg 550 mg BID PO Last administered on 05/28/17 08:26; Admin Dose 550 MG; Start 05/26/17 at 21:00 Piperacillin Sod/ Tazobactam Sod (Zosyn 2.25gm/ 50ml (Pmx)) 50 ml @ 100 mls/hr Q8 IVPB Last administered on 05/28/17 13:29; Admin Dose 100 MLS/HR; Start at 20:00 Acetaminophen 650 mg 650 mg Q6H PRN [place] FEVER Last administered on 05/28/17 08 :26; Admin Dose 650 MG; Start 05/27/17 at 02:00 Midazolam HCl 50 ml @ 1 mls/hr TITRATE IV Last administered on 05/28/17 13:29 ; Admin Dose 5 MLS/HR; Start 05/27/17 at 15:30 Norepinephrine 32 mg/Dextrose 250 ml @ 0.46 mls/hr TITRATE IV Last administered on 05/28/17 08:28; Admin Dose 14.06 MLS/HR; Start 05/27/17 at 15 :30 Phenylephrine HCl 160 mg/Dextrose 500 ml @ 18.75 mls/ hr TITRATE IV Last administered on 05/28/17 08:28; Admin Dose 37.5 MLS/HR; Start 05/28/17 at 07: 00 Dextrose/Sodium Chloride 1,000 ml @ 125 mls/hr Q8H IV Last administered on 09:09; Admin Dose 125 MLS/HR; Start 05/28/17 at 09:00 Albumin Human (Albumin Human 25%) 100 ml @ 100 mls/hr Q6 IV Last administered on 05/28/17 12:29; Admin Dose 100 MLS/HR; Start 05/28/17 at 09:00; Stop at 00:59 Acetaminophen (Tylenol Liquid) 650 mg Q4H PRN NGT PAIN AND OR ELEVATED TEMP; Start 05/28/17 at 10:30 ALMA HERNANDEZ MD May 28, 2017 15:27
[2017-05-29] VITALS (85 sets, daily range): BP systolic 81–138; BP diastolic 49–103; PULSE 95–121; RESP 16–27
[2017-05-29] MEDS: ALBUMIN HUMAN 25% 100 ML IV SCH (01:21)
[2017-05-29] MEDS: DEXTROSE 5%-0.9% NACL 1,000 ML IV SCH ×4 (02:04→16:20)
[2017-05-29] MEDS: NORepinephrine 32 MG in DEXTROSE 5% 218 ML IV SCH (02:08)
[2017-05-29 06:37] LABS: ABNORMAL IP MESSAGE 1; MEAN PLATELET VOLUME 10.6 fl (7.4-10.4); PLATELET COUNT 33 10^3/UL (140-415); POSITIVE DIFF @See below; RED CELL DISTRIBUTION WIDTH 13.5 % (11.5-14.5); WHITE BLOOD COUNT 7.3 10^3/ul (4.8-10.8)
[2017-05-29 06:47] LABS: HEMATOCRIT 26.9 % (42.0-52.0); HEMOGLOBIN 9.5 g/dl (14.0-18.0); RED BLOOD COUNT 2.74 10^6/ul (4.70-6.10)
[2017-05-29 06:48] LABS: MEAN CORPUSCULAR HEMOGLOBIN 34.7 pg (29.0-33.0); MEAN CORPUSCULAR HGB CONC 35.3 g/dl (32.0-37.0); MEAN CORPUSCULAR VOLUME 98.2 fl (82.0-101.0)
[2017-05-29] MEDS: PIPER-TAZO 2.25 GM (PMX) 50 ML IVPB SCH (06:51)
[2017-05-29] MEDS: PANTOPRAZOLE (EC) 40 MG TAB PO SCH (06:52)
[2017-05-29 07:51] LABS: ALBUMIN 2.6 g/dl (3.3-4.9); ALBUMIN/GLOBULIN RATIO 0.81; BILIRUBIN,DIRECT 1.1 mg/dl (0.00-0.20); BILIRUBIN,INDIRECT 3.2 mg/dl (0-1.1); BILIRUBIN,TOTAL 4.3 mg/dl (0.2-1.3); CALCIUM 8.2 mg/dl (8.4-10.2); CREATININE 1.13 mg/dl (0.61-1.24); POTASSIUM 4.2 mmol/L (3.5-5.1); TOTAL PROTEIN 5.8 g/dl (6.1-8.1)
[2017-05-29] MEDS: LACTULOSE 30ML CUP PO SCH ×2 (08:42→20:02)
[2017-05-29] MEDS: MAGNESIUM OXIDE 400 MG TAB PO SCH (08:43)
[2017-05-29] MEDS: RIFAXIMIN 550 MG TAB PO SCH ×2 (08:43→20:02)
[2017-05-29] MEDS: MIDAZOLAM (DRIP) 50 mg/50 mL 50 ML IV SCH ×2 (08:44→17:45)
[2017-05-29 09:23] LABS: ANISOCYTOSIS 1+ (0-0); MONOCYTES % (M) 6 % (0-11); PLATELET ESTIMATE SIG DECREASED; POIKILOCYTOSIS 3+ (0-0); POLYCHROMASIA 3+ (0-0)
--- NOTE | 2017-05-29 09:31 | PN ---
DATE: 05/29/2017 SUBJECTIVE: The patient remains critically ill on pressor support. The patient's urinary output is marginal. No other events noted. OBJECTIVE: VITAL SIGNS: Blood pressure 123/74, respiration 18, pulse 116, temperature 98.6. HEENT: Head is normocephalic. NECK: Supple. HEART: Regular rate. LUNGS: Show diminished breath sounds at the base. ABDOMEN: Soft, nontender to palpation. No rebound or guarding. EXTREMITIES: Negative for clubbing, cyanosis. Trace edema. DERMATOLOGIC: No rashes. MUSCULOSKELETAL: No joint effusions. NEUROLOGIC: No change in exam. MEDICATIONS: The patient's medications have been reviewed. LABORATORY DATA: Shows sodium 131, potassium 4.2, BUN 31, creatinine 1.13. White count 7.3, hemogl obin 9.5, hematocrit 26.9, platelet count is 33. ASSESSMENT AND PLAN: This is a 57-year-old male who presents with: 1. Nonoliguric acute kidney injury with previous baseline creatinine of 0.8 mg/dL. Etiology of cur rent acute kidney injury is secondary to hemodynamics, acute tubular necrosis due to shock, sepsis. The patient's urinary output has been adequate and patient has been recovering with current treatme nt plan of fluids, pressor support. At this point, patient does not meet criteria for hepatorenal s yndrome. Would otherwise continue current treatment plan as stated above. 2. Hyponatremia secondary to acute kidney injury. Would recommend to continue to monitor sodium le vels, would change all piggybacks from D5 water to normal saline, avoid any free water flushes. 3. Anemia. Monitor hemoglobin and hematocrit levels. 4. Mineral bone disorder. Will monitor calcium and phosphorus levels. 5. Septic shock secondary to gram negative bacteremia. Continue current antibiotic regimen, contin ue pressor support. 6. Ventilatory dependent respiratory failure. Vent settings and ABGs have been reviewed. Continue to monitor. 7. End-stage liver disease. The patient is decompensated. Continue current treatment plan. Follo w up with gastroenterology. 8. Acute encephalopathy, etiology is toxic metabolic. Continue to monitor. Please note I spent over 35 minutes of critical care time with this patient. Dictated By: LUPE LANE/VANESA Conf#: [id number] [facility]#: [id number]
--- NOTE | 2017-05-29 09:45 | CONS ---
Date/Time of Note Date/Time of Note DATE: 05/29/17 TIME: 09:43 Consult Date/Type/Reason Admit Date/Time May 26, 2017 at 16:44 Initial Consult Date 05/28/17 Type of Consultation: Pulmonary/critical care Subjective Patient remains intubated sedated on mechanical ventilation. Objective Vital Signs Date Time Temp Pulse Resp B/P Pulse Ox O2 Delivery O2 Flow Rate FiO2 05/29/17 08:00 40 05/29/17 06:30 116 18 123/74 94 Mechanical Ventilator 05/29/17 04:00 98.8 Intake and Output 05/28/17 05/28/17 05/29/17 14:59 22:59 06:59 Intake Total 1387.0 ml 1200.75 ml 458.08 ml Output Total 450 ml 410 ml 550 ml Balance 937.0 ml 790.75 ml -91.92 ml Exam GENERAL: Chronically ill-appearing gentleman on mechanical ventilation. VITAL SIGNS: per chart NECK: Supple. No JVD or lymphadenopathy. CARDIAC EXAM: S1, S2. No added sounds or murmurs. CHEST: Diminished air entry both lung bases ABDOMEN: Abdomen distended but no guarding or rebound bowel sounds present. EXTREMITIES: No cyanosis, clubbing or edema. NEUROLOGIC: Unable to assess. Results/Medications Result Diagram: 05/29/17 0530 05/29/17 0530 Results 24 hrs Laboratory Tests Test 05/29/17 05:30 White Blood Count 7.3 # Red Blood Count 2.74 L Hemoglobin 9.5 L Hematocrit 26.9 L Mean Corpuscular Volume 98.2 Mean Corpuscular Hemoglobin 34.7 H Mean Corpuscular Hemoglobin Concent 35.3 Red Cell Distribution Width 13.5 Platelet Count 33 #L Mean Platelet Volume 10.6 H Neutrophils % Segmented Neutrophils % (Manual) 73 Band Neutrophils % (Manual) 18 H Lymphocytes % Lymphocytes % (Manual) 3 L Monocytes % Monocytes % (Manual) 6 Eosinophils % Basophils % Nucleated Red Blood Cells % 0.0 Neutrophils # Neutrophils # (Manual) 5.4 Band Neutrophils # 1.3 H Absolute Lymphocytes (Manual) 0.2 L Lymphocytes # Monocytes # Absolute Monocytes (Manual) 0.4 Eosinophils # Basophils # Nucleated Red Blood Cells # Platelet Estimate SIG DECREASED Polychromasia 3+ Poikilocytosis 3+ Anisocytosis 1+ Sodium Level 131 L Potassium Level 4.2 Chloride Level 104 Carbon Dioxide Level 21 Anion Gap 10 Blood Urea Nitrogen 31 H Creatinine 1.13 Glucose Level 123 # Calcium Level 8.2 L Total Bilirubin 4.3 H Direct Bilirubin 1.10 H Indirect Bilirubin 3.2 H Aspartate Amino Transf (AST/SGOT) 90 H Alanine Aminotransferase (ALT/SGPT) 56 Alkaline Phosphatase 57 Total Protein 5.8 L Albumin 2.6 L Globulin 3.20 Albumin/Globulin Ratio 0.81 Medications Current Medications Ergocalciferol (Drisdol) 50,000 unit Q7D PO ; Start 05/26/17 at 17:30 Lactulose (Enulose) 20 gm BID PO Last administered on 05/29/17 08:42; Admin Dose 20 GM; Start 05/26/17 at 21:00 Magnesium Oxide (Mag-Ox 400) 400 mg DAILY PO Last administered on 05/29/17 08 :43; Admin Dose 400 MG; Start 05/27/17 at 09:00 Rifaximin (Xifaxan) 550 mg BID PO Last administered on 05/29/17 08:43; Admin Dose 550 MG; Start 05/26/17 at 21:00 Acetaminophen 650 mg 650 mg Q6H PRN MN FEVER Last administered on 05/28/17 08 :26; Admin Dose 650 MG; Start 05/27/17 at 02:00 Midazolam HCl 50 ml @ 1 mls/hr TITRATE IV Last administered on 05/29/17 08:44 ; Admin Dose 5 MLS/HR; Start 05/27/17 at 15:30 Phenylephrine HCl 160 mg/Dextrose 500 ml @ 18.75 mls/ hr TITRATE IV Last administered on 05/28/17 08:28; Admin Dose 37.5 MLS/HR; Start 05/28/17 at 07: 00; Stop 05/29/17 at 10:59 Dextrose/Sodium Chloride (D5-NS) 1,000 ml @ 125 mls/hr Q8H IV Last administered on 05/29/17 07:55; Admin Dose 125 MLS/HR; Start 05/28/17 at 09: 00 Acetaminophen (Tylenol Liquid) 650 mg Q4H PRN NGT PAIN AND OR ELEVATED TEMP; Start 05/28/17 at 10:30 Miscellaneous Information PLEASE MIX ALL PIGGY BACKS... ONCE XX ; Start at 09:00 Norepinephrine 32 mg/Sodium Chloride 250 ml @ 0.46 mls/hr TITRATE IV ; Start 05/29/17 at 11:00 Phenylephrine HCl 160 mg/Sodium Chloride 500 ml @ 18.75 mls/ hr TITRATE IV ; Start 05/29/17 at 11:00 Piperacillin Sod/ Tazobactam Sod/ Sodium Chloride (Zosyn/NS) 50 ml @ 100 mls/ hr Q8 IVPB ; Start 05/29/17 at 14:00 Assessment/Plan Chief Complaint/Hosp Course Assessment 1. Hypoxemic respiratory failure likely secondary to pneumonia and bilateral pleural effusions. 2. 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 Cirrhosis with portal hypertension 4. Chronic from cytopenia secondary to chronic liver disease Plan 1. Continue GI recommendations 2. Continue mechanical ventilation 3. Continue monitor H&H. Will consider thoracentesis following platelet transfusion. Problems: HAMZAH NG MD, [facility] May 29, 2017 09:45
[2017-05-29] MEDS ORDERED: NORepinephrine 32 MG in SOD CHLORIDE 0.9% 218 ML IV SCH (11:00)
[2017-05-29] MEDS ORDERED: PHENYLephrine 160 MG in SOD CHLORIDE 0.9% 484 ML IV SCH (11:00)
--- NOTE | 2017-05-29 11:14 | PDOCDIS ---
Discharge Instructions CONDITION Patient Condition: Critical HOME CARE INSTRUCTIONS: Special Diet: ADRY AVILES May 29, 2017 11:14
--- NOTE | 2017-05-29 11:18 | DS ---
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 Intubated for hypoxic respiratory failure. 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 appreciate nephrology assistance with IVFs #FEN TFs Patient Condition: Critical Hx of Present Illness Hospital Course 57 yo M with known EtOH cirrhosis c/b recurrent ascites requiring frequent LVPs currently undergoing transplant work up at [facility]. 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 Most recently pt was in the ER here on 05.23, had 10L ascitic fluid removed. Ascitic fluid analysis was not done nor was albumin given. Since last night pt's family states he has been very short of breath. Upon presentation to the ER pt noted to be SOB and hypotensive. Per ER notes he was intubated for airway protection. Pt intubated on mechanical ventilation, presently in care in the ICU, being followed by primary, pulmonary, renal teams at this time. Labs have been monitored daily, came in with some elevated lactic acid, on pressor support 2 for septic shock, secondary to Klebsiella bacteremia. Slowly improving. Patient has been on [facility] liver transplant list for the last 2 months, was last hospitalized at [facility] 2 months ago. 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 Home Meds Active Scripts Lactulose* (Lactulose*) 20 Gm/30 Ml Solution, 20 GM PO BID, #200 ML Prov:BROOKLYN PANTOJA MD 04/07/17 Reported Medications Rifaximin* (Xifaxan*) 550 Mg Tablet, 550 MG PO BID, TAB 02/26/17 Ergocalciferol (Vitamin D2) (VITAMIN D2) 50,000 Unit Capsule, 79416 UNIT PO Q7D , CAP 02/12/17 Pantoprazole* (Pantoprazole*) 40 Mg Tablet.dr, 40 MG PO AC BREAKFAST, TAB 02/12/17 Furosemide* (Furosemide*) 20 Mg Tablet, 40 MG PO BID, #60 TAB 02/12/17 Magnesium Oxide* (Mag-Oxide*) 400 Mg Tablet, 400 MG PO DAILY, TAB 02/12/17 Spironolactone* (Aldactone*) 50 Mg Tablet, 50 MG PO DAILY, #30 TAB 01/18/17 Primary Care Provider Care Physician No Primary Time spent on discharge: > 30 minutes Pending Labs Laboratory Tests Test 05/29/17 05:30 White Blood Count 7.310^3/ul (4.8-10.8) Red Blood Count 2.7410^6/ul (4.70-6.10) Hemoglobin 9.5g/dl (14.0-18.0) Hematocrit 26.9% (42.0-52.0) Mean Corpuscular Volume 98.2fl (82.0-101.0) Mean Corpuscular Hemoglobin 34.7pg (29.0-33.0) Mean Corpuscular Hemoglobin Concent 35.3g/dl (32.0-37.0) Red Cell Distribution Width 13.5% (11.5-14.5) Platelet Count 3310^3/UL (140-415) Mean Platelet Volume 10.6fl (7.4-10.4) Neutrophils % % (39.0-77.0) Segmented Neutrophils % (Manual) 73% (39-77) Band Neutrophils % (Manual) 18% (0-4) Lymphocytes % % (15.0-51.0) Lymphocytes % (Manual) 3% (15-51) Monocytes % % (0.0-11.0) Monocytes % (Manual) 6% (0-11) Eosinophils % % (0.0-7.0) Basophils % % (0.0-2.0) Nucleated Red Blood Cells % 0.0/100WBC (0.0-0.0) Neutrophils # 10^3/ul (1.6-7.5) Neutrophils # (Manual) 5.410^3/ul (1.7-7.5) Band Neutrophils # 1.310^3/ul (0.0-0.6) Absolute Lymphocytes (Manual) 0.210^3/ul (0.8-2.9) Lymphocytes # 10^3/ul (0.8-2.9) Monocytes # 10^3/ul (0.3-0.9) Absolute Monocytes (Manual) 0.410^3/ul (0.3-0.9) Eosinophils # 10^3/ul (0.0-0.5) Basophils # 10^3/ul (0.0-0.1) Nucleated Red Blood Cells # 10^3/ul (0.0-0.0) Platelet Estimate SIG DECREASED Polychromasia 3+ (0-0) Poikilocytosis 3+ (0-0) Anisocytosis 1+ (0-0) Sodium Level 131mmol/L (135-144) Potassium Level 4.2mmol/L (3.5-5.1) Chloride Level 104mmol/L (97-110) Carbon Dioxide Level 21mmol/L (21-31) Anion Gap 10 (8-16) Blood Urea Nitrogen 31mg/dl (7-20) Creatinine 1.13mg/dl (0.61-1.24) Glucose Level 123mg/dl (70-220) Calcium Level 8.2mg/dl (8.4-10.2) Total Bilirubin 4.3mg/dl (0.2-1.3) Direct Bilirubin 1.10mg/dl (0.00-0.20) Indirect Bilirubin 3.2mg/dl (0-1.1) Aspartate Amino Transf (AST/SGOT) 90IU/L (15-46) Alanine Aminotransferase (ALT/SGPT) 56IU/L (13-69) Alkaline Phosphatase 57IU/L (42-121) Total Protein 5.8g/dl (6.1-8.1) Albumin 2.6g/dl (3.3-4.9) Globulin 3.20g/dl (1.3-3.2) Albumin/Globulin Ratio 0.81 ADRY MACARIO S. May 29, 2017 11:18
[2017-05-29] MEDS ORDERED: FENTAnyl (DRIP) 1000 mcg/100mL 100 ML IV SCH (11:30)
[2017-05-29] MEDS ORDERED: BALSAM PERU/CASTOR OIL 60 GM TUBE TOP SCH (13:30)
[2017-05-29] MEDS: TAZO IVPB SCH ×2 (14:00→22:20)
[2017-05-29] MEDS: SOD CHLORIDE 0.9% IVPB SCH ×2 (14:00→22:20)
[2017-05-29] MEDS: PIPERACILLIN IVPB SCH ×2 (14:00→22:20)
[2017-05-29] MEDS ORDERED: PIPER-TAZO 2.25 GM (PMX) 50 ML ONE (22:16)
[2017-05-30] MEDS: MIDAZOLAM (DRIP) 50 mg/50 mL 50 ML IV SCH (00:59)
[2017-05-30 15:46] LABS: PATH REVIEW CH
== END 2017-05-30 01:28 | disposition short-term general hospital (02) | DRG 871 ==
LOC: E/R 14:35 → ICU 16:44
PROVIDERS: ADMIT Internal Medicine; ATTEND Internal Medicine
PROC: 5A1945Z Respiratory Ventilation, 24-96 Consecutive Hours (ICD-10-PCS; principal; 2017-05-26)
PROC: 0BH17EZ Insertion of Endotracheal Airway into Trachea, Via Natural or Artificial Opening (ICD-10-PCS; 2017-05-26)
PROC: 0W9G3ZZ Drainage of Peritoneal Cavity, Percutaneous Approach (ICD-10-PCS; 2017-05-26)
PROC: 05H533Z Insertion of Infusion Device into Right Subclavian Vein, Percutaneous Approach (ICD-10-PCS; 2017-05-26)
DX: A41.59 Other Gram-negative sepsis (principal); R65.21 Severe sepsis with septic shock; N17.0 Acute kidney failure with tubular necrosis; J96.01 Acute respiratory failure with hypoxia; G92 Toxic encephalopathy; J18.9 Pneumonia, unspecified organism; Z76.82 Awaiting organ transplant status; K76.6 Portal hypertension; E87.1 Hypo-osmolality and hyponatremia; E87.2 Acidosis; D69.59 Other secondary thrombocytopenia; K72.90 Hepatic failure, unspecified without coma; K70.31 Alcoholic cirrhosis of liver with ascites; E86.0 Dehydration; E83.51 Hypocalcemia; D64.9 Anemia, unspecified
CPT/HCPCS: 31500; 36415; 36600; 71010; 74000; 80053; 80076; 81001; 82436; 82803; 82962; 83605; 83690; 84133; 84300; 84484; 85025; 85610; 87040; 87081; 87086; 93005; 94002; 94003; 94770; 96374; 96375; 96376; J0610; J0744; J1940; J2060; J2370; J2543; J3010; J3370; J7030; J7040; J7042; J7050; J7060; J7070; P9047

== ENCOUNTER 2017-07-21 14:00 | Emergency (ER) | END 2017-07-21 21:52 | disposition home or self-care (01) ==

== ENCOUNTER 2017-07-22 08:33 | Emergency (ER) | END 2017-07-22 14:26 | disposition home or self-care (01) ==

== ENCOUNTER 2017-07-28 11:27 | Emergency (ER) | END 2017-07-28 16:54 | disposition home or self-care (01) ==